=== PATIENT | male | born 1970 | race African-American/Black ===

== ENCOUNTER 2019-10-12 19:07 | Emergency (ER) | payer MEDICARE, OTHER ==
[~2019-10-12] VITALS: Ht 185.4 cm; Wt 137.9 kg
--- NOTE | 2019-10-12 19:26 | NUR ---
SEEN AND EXAMINED BY
--- NOTE | 2019-10-12 19:33 | NUR ---
PATIENT CAME FROM [facility] WITH C/O ABDOMINAL DISTENSION. LAST PARACENTESIS ON 08/22/2019. AAOX3. NOT IN ANY DISTRESS. DENIES ANY PAIN. CONNECTED TO MONITOR.
[2019-10-12 19:52] LABS: BASOPHILS # (AUTO) 0.1 /CMM (0.0-0.2); EOSINOPHILS % (AUTO) 2.9 % (0.0-6.0); HEMATOCRIT 42 % (39-51); HEMOGLOBIN 13.1 g/dL (13.5-17.5); LYMPHOCYTES # (AUTO) 0.9 /CMM (0.8-4.8); LYMPHOCYTES % (AUTO) 15.2 % (20.0-44.0); MEAN CORPUSCULAR HGB CONC 31 g/dl (31.0-36.0); MEAN CORPUSCULAR VOLUME 77 fL (80-96); MONOCYTES # (AUTO) 0.9 /CMM (0.1-1.30); MONOCYTES % (AUTO) 15.9 % (2.0-12.0); NEUTROPHILS # (AUTO) 3.7 /CMM (1.8-8.9); PLATELET COUNT (AUTO) 166 /CMM (150-450); RED BLOOD CELL COUNT(AUTO) 5.49 MIL/uL (4.5-6.0); WHITE BLOOD COUNT (AUTO) 5.7 K/uL (4.3-11.0)
--- NOTE | 2019-10-12 19:56 | NUR ---
VELOCITY SHOOTER AT BEDSIDE FOR BLOOD DRAW
[2019-10-12 20:07] LABS: BILIRUBIN,DIRECT 0.7 mg/dL (0.0-0.2); BILIRUBIN,TOTAL 1.1 mg/dL (0.2-1.0); CALCIUM, SERUM 8.6 mg/dL (8.5-10.1); CREATININE 1.3 mg/dL (0.6-1.3)
[2019-10-12 20:09] LABS: POTASSIUM 5.5 mmol/L (3.5-5.1)
[2019-10-12 20:55] LABS: BAND % (MANUAL) 4 % (0.0-5.0); EOSINOPHILS % (MANUAL) 4 % (0-4); LYMPHOCYTES % (MANUAL) 20 % (16-48); MONOCYTES % (MANUAL) 16 % (0-11.0); NEUTROPHILS % (MANUAL) 56 (42-76)
--- NOTE | 2019-10-12 22:43 | NUR ---
CALLED [facility] FOR FOR BLS TRANSPORT GOING BACK TO [facility]. ETA: 0000 TRIP #:[id number]
--- NOTE | 2019-10-12 23:18 | NUR ---
REPORT GIVEN TO NEGAR JAMIL FOR DILEEP.
--- NOTE | 2019-10-13 00:11 | NUR ---
[facility] AND [facility].
[2019-10-13 00:12] VITALS: BP 122/75
== END 2019-10-13 00:12 | disposition home or self-care (01) ==
LOC: ER 19:13
DX: K70.31 Alcoholic cirrhosis of liver with ascites (principal); K42.9 Umbilical hernia without obstruction or gangrene; D50.9 Iron deficiency anemia, unspecified; I11.0 Hypertensive heart disease with heart failure; I50.9 Heart failure, unspecified; G40.909 Epilepsy, unspecified, not intractable, without status epilepticus; K21.9 Gastro-esophageal reflux disease without esophagitis; F32.9 Major depressive disorder, single episode, unspecified
CPT/HCPCS: 36415; 80048-TC; 80076-TC; 82140-TC; 83690-TC; 85025-TC

== ENCOUNTER 2019-10-15 20:16 | Inpatient (IN) | payer MEDICARE, OTHER ==
[~2019-10-15] VITALS: Ht 188 cm; Wt 137.9 kg
[2019-10-15] MEDS ORDERED: DIVA250T PO (20:43)
[2019-10-15] MEDS ORDERED: DOCU-141 PO (20:43)
[2019-10-15] MEDS ORDERED: PROP10TA10 PO (20:43)
[2019-10-15] MEDS ORDERED: POTA20TA83 PO (20:43)
[2019-10-15] MEDS ORDERED: ESCI10TA PO (20:43)
[2019-10-15] MEDS ORDERED: PANT40TA2 PO (20:43)
[2019-10-15] MEDS ORDERED: ARIP20TA4 PO (20:43)
[2019-10-15] MEDS ORDERED: LACT10SO PO (20:43)
[2019-10-15] MEDS ORDERED: LEVE750T4 PO (20:43)
[2019-10-15] MEDS ORDERED: SPIR50TA PO (20:43)
[2019-10-15] MEDS ORDERED: FURO-145 PO (20:43)
--- NOTE | 2019-10-15 20:43 | NUR ---
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
[2019-10-15 21:27] LABS: BASOPHILS # (AUTO) 0.1 /CMM (0.0-0.2); EOSINOPHILS % (AUTO) 1.7 % (0.0-6.0); HEMATOCRIT 45 % (39-51); HEMOGLOBIN 14.2 g/dL (13.5-17.5); LYMPHOCYTES # (AUTO) 1.1 /CMM (0.8-4.8); LYMPHOCYTES % (AUTO) 17.6 % (20.0-44.0); MEAN CORPUSCULAR HGB CONC 32 g/dl (31.0-36.0); MEAN CORPUSCULAR VOLUME 77 fL (80-96); MONOCYTES # (AUTO) 0.9 /CMM (0.1-1.30); MONOCYTES % (AUTO) 14.6 % (2.0-12.0); NEUTROPHILS # (AUTO) 4.2 /CMM (1.8-8.9); NEUTROPHILS % (AUTO) 65.1 % (43.0-81.0); PLATELET COUNT (AUTO) 231 /CMM (150-450); RED BLOOD CELL COUNT(AUTO) 5.82 MIL/uL (4.5-6.0); WHITE BLOOD COUNT (AUTO) 6.4 K/uL (4.3-11.0)
[2019-10-15] MEDS ORDERED: FUROSEMIDE 20 MG TABLET PO ONE (21:30)
[2019-10-15] MEDS ORDERED: FUROSEMIDE 20 MG TABLET ONE (21:33)
--- NOTE | 2019-10-15 22:01 | NUR ---
[facility] ETA [id number] TRIP#[id number]
[2019-10-15 22:02] LABS: ALANINE AMINOTRANSFERASE 24 U/L (12-78); ALBUMIN 3.1 g/dL (3.4-5.0); ALKALINE PHOSPHATASE 281 U/L (46-116); ASPARTATE AMINOTRANSFERASE 31 U/L (15-37); B-TYPE NATRIURETIC PEPTIDE 1442 PG/ML (0-125); BILIRUBIN,DIRECT 0.9 mg/dL (0.0-0.2); BILIRUBIN,TOTAL 1.4 mg/dL (0.2-1.0); CARBON DIOXIDE 24 mmol/L (21-32); CHLORIDE 101 mmol/L (98-107); CREATININE 1.7 mg/dL (0.6-1.3); GLUCOSE 92 mg/dL (74-106); SODIUM SERUM 135 mmol/L (136-145); TOTAL PROTEIN, SERUM 8.2 g/dL (6.4-8.2); UREA NITROGEN, BLOOD 39 mg/dL (7-18)
[2019-10-15 22:06] LABS: POTASSIUM 6.4 mmol/L (3.5-5.1)
[2019-10-15] MEDS ORDERED: Calcium Gluconate 0.465 MEQ/ML VIAL IV ONE ×2 (22:20→22:30)
[2019-10-15] MEDS ORDERED: ALBUTEROL FS 2.5 MG/0.5 ML VIAL.NEB ONE (22:25)
[2019-10-15] MEDS ORDERED: ALBUTEROL FS 2.5 MG/0.5 ML VIAL.NEB NEB ONE (22:30)
--- NOTE | 2019-10-15 22:56 | NUR ---
REP[ORT CALLED IN TO VÍCTOR RN
[2019-10-15 23:22] VITALS: BP 127/72
[2019-10-15] MEDS ORDERED: ONDANSETRON HCL/PF 4 MG/2 ML VIAL IVP PRN (23:30)
[2019-10-15] MEDS ORDERED: ZOLPIDEM TARTRATE 5 MG TABLET PO PRN (23:30)
[2019-10-15] MEDS ORDERED: HYDROCODONE/APAP 5/325MG 1 EACH TABLET PO PRN (23:30)
[2019-10-15] MEDS ORDERED: ACETAMINOPHEN 325 MG TABLET PO PRN (23:30)
[2019-10-15] MEDS ORDERED: FUROSEMIDE 100 MG/10 ML VIAL IV ONE (23:30)
[2019-10-15] MEDS ORDERED: Z GUARD REMEDY 2 OZ OINT TP PRN (23:30)
[2019-10-15] MEDS ORDERED: LACTULOSE 10 G/15 ML UDC (PYXIS) PO PRN (23:30)
[2019-10-15 23:32] VITALS: BP 127/72
--- NOTE | 2019-10-15 23:32 | NUR ---
KINDERGARTEN ASSISTANT ADMITTING NOTES PATIENT BROUGHT TO UNIT BY ER STAFF [employer]IA [employer]. PATIENT IS AWAKE, A/O X1-2 WITH CONFUSION; BREATHING EVEN AND UNLABORED; PATIENT ON O2 2L NC; NO S/S OF ACUTE RESPIRATORY DISTRESS NOTED; PATIENT DENIES PAIN; NO DISCOMFORT NOTED; VITAL SIGNS STABLE; BP: 127/81, PULSE: 69 BPM; SKIN INTACT; ABDOMINAL DISTENTION NOTED; TELE MONITOR ATTACHED TO PATIENT; MONITOR READS SR; HR 75 BPM; IV SITE INTACT AND PATENT; FLUSHING WELL; NO S/S OF REDNESS OR INFILTRATION; BED LOCKED IN LOW POSITION; BILATERAL UPPER SIDE RAILS; CALL LIGHT WITHIN EASY REACH; WILL CONTINUE TO MONITOR.
--- NOTE | 2019-10-15 23:32 | NUR ---
TRANSFERED PT VIA [facility]
--- NOTE | 2019-10-15 23:45 | NUR ---
MS RN NOTES ADMITTING PICTURES OF SKIN/SCABS TAKEN AND FILED IN PATIENT BINDER
[2019-10-16] MEDS: LEVETIRACETAM (250 MG) 250 MG TABLET PO SCH ×3 (00:47→22:09)
[2019-10-16] MEDS: DIVALPROEX SODIUM 250 MG TABLET.DR PO SCH ×3 (00:48→22:09)
[2019-10-16 03:20] LABS: CALCIUM, SERUM 8.6 mg/dL (8.5-10.1); CREATININE 1.6 mg/dL (0.6-1.3); POTASSIUM 6.1 mmol/L (3.5-5.1)
[2019-10-16 04:00] VITALS: BP 117/72
--- NOTE | 2019-10-16 06:45 | NUR ---
RN NOTES SPOKE TO PT'S SISTER PAOLO GUADARRAMA AND GOT A TELEPHONE CONSENT FOR US GUIDED PARACENTESIS WITNESSED BY THE CHARGE NURSE
--- NOTE | 2019-10-16 06:51 | NUR ---
DEHYDROGENATION CONVERTER OPERATOR CLOSING NOTES PATIENT AWAKE, A/O X1, CONTINUED CONFUSION; BREATHING EVEN AND UNLABORED; NO S/S OF ACUTE RESPIRATORY DISTRESS NOTED; PATIENT AMBULATING AND UNABLE TO SLEEP; PATIENT DENIES PAIN; BLE EDEMA NOTED; BLE MULTIPLE SCABS NOTED; TELE MONITOR READS SR 75 BPM; BED LOCKED IN LOW POSITION, SAFETY PRECAUTIONS IN PLACE. BILATERAL UPPER SIDE RAILS X2; CALL LIGHT WITHIN EASY REACH; WILL ENDORSE CONTINUITY OF CARE TO ONCOMING SHIFT.
--- NOTE | 2019-10-16 07:53 | NUR ---
SECOND CLASS WELDER CLOSING NOTES RECEIVED PATIENT AWAKE, A/O X1, CONTINUED CONFUSION. BREATHING EVEN AND UNLABORED WITH NO S/S OF ACUTE RESPIRATORY DISTRESS NOTED AT THIS TIME. PATIENT DENIES PAIN AT THIS MOMENT. BLE EDEMA NOTED AND MULTIPLE SCABS PRESENT BILATERALLY. PATIENT ON EXTERNAL CARDIAC TELE MONITOR WITH A READING IN THE 70S. LFA GAUGE # 20 PRESENT AND INTACT, FLUSHING WELL. SAFETY PRECAUTIONS IN PLACE: BED IN LOW POSITION AND LOCKED, RAILS UP X 2, CALL LIGHT WITHIN REACH. WILL CONTINUE TO MONITOR PATIENT. Addendum: 10/16/19 at 0811 by SHANT ALBA RN SECOND CLASS WELDER OPENING NOTES RECEIVED PATIENT AWAKE, A/O X1, CONTINUED CONFUSION. BREATHING EVEN AND UNLABORED WITH NO S/S OF ACUTE RESPIRATORY DISTRESS NOTED AT THIS TIME. PATIENT DENIES PAIN AT THIS MOMENT. BLE EDEMA NOTED AND MULTIPLE SCABS PRESENT BILATERALLY. PATIENT ON EXTERNAL CARDIAC TELE MONITOR WITH A READING IN THE 70S. LFA GAUGE # 20 PRESENT AND INTACT, FLUSHING WELL. SAFETY PRECAUTIONS IN PLACE: BED IN LOW POSITION AND LOCKED, RAILS UP X 2, CALL LIGHT WITHIN REACH. WILL CONTINUE TO MONITOR PATIENT.
[2019-10-16 08:00] VITALS: BP 103/72
[2019-10-16 08:55] LABS: BASOPHILS % (AUTO) 0.6 % (0.0-2.0); EOSINOPHILS % (AUTO) 1.8 % (0.0-6.0); HEMATOCRIT 45 % (39-51); HEMOGLOBIN 14.4 g/dL (13.5-17.5); LYMPHOCYTES # (AUTO) 0.9 /CMM (0.8-4.8); LYMPHOCYTES % (AUTO) 13.3 % (20.0-44.0); MEAN CORPUSCULAR HGB CONC 32 g/dl (31.0-36.0); MEAN CORPUSCULAR VOLUME 76 fL (80-96); MONOCYTES # (AUTO) 0.8 /CMM (0.1-1.30); MONOCYTES % (AUTO) 11.8 % (2.0-12.0); NEUTROPHILS # (AUTO) 4.9 /CMM (1.8-8.9); NEUTROPHILS % (AUTO) 72.5 % (43.0-81.0); PLATELET COUNT (AUTO) 237 /CMM (150-450); RED BLOOD CELL COUNT(AUTO) 5.91 MIL/uL (4.5-6.0); WHITE BLOOD COUNT (AUTO) 6.7 K/uL (4.3-11.0)
[2019-10-16] MEDS ORDERED: SPIRONOLACTONE 25 MG TABLET PO SCH (09:00)
[2019-10-16 09:17] LABS: CREATININE 1.5 mg/dL (0.6-1.3); MAGNESIUM 2.2 mg/dL (1.8-2.4); PHOSPHORUS 4.5 mg/dL (2.5-4.9); POTASSIUM 5.8 mmol/L (3.5-5.1)
[2019-10-16] MEDS: FUROSEMIDE 20 MG TABLET PO SCH ×2 (09:27→16:17)
[2019-10-16] MEDS: DOCUSATE SODIUM 100 MG CAPSULE PO SCH ×2 (09:28→16:16)
[2019-10-16] MEDS: ESCITALOPRAM OXALATE (10 MG) 10 MG TABLET PO SCH (09:28)
[2019-10-16] MEDS: ARIPIPRAZOLE 5 MG TABLET PO SCH (09:28)
[2019-10-16] MEDS: PROPRANOLOL HCL 10 MG TABLET PO SCH ×2 (09:29→16:17)
[2019-10-16] MEDS: PANTOPRAZOLE 40 MG TABLET.DR PO SCH (09:30)
[2019-10-16 09:44] LABS: CHOLESTEROL 70 mg/dL (<200); TRIGLYCERIDES 43 mg/dL (30-150)
[2019-10-16 09:45] LABS: HDL CHOLESTEROL 30 mg/dL (40-60); LDL 38 mg/dL (0-99)
[2019-10-16] MEDS ORDERED: SODIUM POLYSTYRENE SULFONATE 15 G/60 ML BOTTLE PO ONE (11:00)
--- NOTE | 2019-10-16 14:31 | NUR ---
MS RN NOTES PATIENT JUST HAS A US GUIDED PARACENTESIS PERFORMED AT BEDSIDE. PATIENT TOLERATED PROCEDURE WELL. 4500 MLS OF FLUID DRAINED. WILL CONTINUE TO MONITOR PATIENT.
[2019-10-16 16:00] VITALS: BP 111/79
--- NOTE | 2019-10-16 18:44 | NUR ---
MS RN CLOSING NOTES PATIENT AT THIS MOMENT IN BED SITTING QUIETLY. A/O X1, REPLIES YES OR NO AND AT TIMES DOES NOT ANSWER APPROPRIATELY TO THE QUESTION. DURING THE DAY LIKES TO AMBULATE THROUGHOUT THE OGLESBY. PATIENT ON ROOM AIR BREATHING EVENLY WITH SO S/S OF DISTRESS. LFA GAUGE # 20 PRESENT, INTACT AND PATENT. PATIENT HAD US GUIDED PARACENTESIS TODAY WITH AN OUTPUT OF 4500 MLS. PROCEDURE TOLERATED WELL AND THE SITE IS CLEAN, DRY AND INTACT. SAFETY PRECAUTIONS IN PLACE: BED IN LOW POSITION AND LOCKED, RAILS UP X 2, CALL LIGHT WITHIN REACH. WILL ENDORSE TO THE TAPPER SHANK NURSE.
--- NOTE | 2019-10-16 19:15 | NUR ---
MS RN OPENING NOTES BEDSIDE REPORT RECIEVED FROM SHANT Keller RN. PATIENT AT THIS MOMENT IN BED SITTING QUIETLY. A/O X1, PATIENT APHASIC, ABLE TO ANSWER YES OR NO QUESTIONS. PER REPORT PATIENT WANDERS THROUGH THROUGH OGLESBY BUT HAS NOT TRIED TO LEAVE THE UNIT. PATIENT ON ROOM AIR BREATHING EVEN AND UNLABORED. PATIENT HAS LFA GAUGE # 20 INTACT AND PATENT. PATIENT HAD US GUIDED PARACENTESIS TODAY WITH AN OUTPUT OF 4500 ML. SAFETY PRECAUTIONS IN PLACE: BED IN LOW POSITION AND LOCKED, RAILS UP X 2, CALL LIGHT WITHIN REACH. WILL CONTINUE TO MONITOR.
[2019-10-16 20:00] VITALS: BP 103/66
--- NOTE | 2019-10-17 06:30 | NUR ---
MS RN CLOSING NOTES PATIENT IN BED WITH EYES CLOSED. PATIENT ON ROOM AIR BREATHING EVENLY WITH NO S/S OF DISTRESS. LFA GAUGE # 20 PRESENT, INTACT. SAFETY PRECAUTIONS IN PLACE: BED IN LOW POSITION AND LOCKED, RAILS UP X 2, CALL LIGHT WITHIN REACH. BED ALARM ACTIVE.
--- NOTE | 2019-10-17 07:51 | NUR ---
MS/RN Patient received. Patient received from slot shift supervisor. Patient non verbal, able to follow simple commands and nod and shake head to simple questions. Denies any pain or discomfort. Safety measures in place, call light within reach. Will continue to monitor and ensure safety.
[2019-10-17 07:57] LABS: BASOPHILS % (AUTO) 0.5 % (0.0-2.0); EOSINOPHILS % (AUTO) 1.9 % (0.0-6.0); HEMATOCRIT 41 % (39-51); LYMPHOCYTES # (AUTO) 0.8 /CMM (0.8-4.8); MEAN CORPUSCULAR HGB CONC 32 g/dl (31.0-36.0); MEAN CORPUSCULAR VOLUME 76 fL (80-96); MONOCYTES # (AUTO) 0.8 /CMM (0.1-1.30); NEUTROPHILS # (AUTO) 3.7 /CMM (1.8-8.9); NEUTROPHILS % (AUTO) 67.6 % (43.0-81.0); PLATELET COUNT (AUTO) 206 /CMM (150-450); RED BLOOD CELL COUNT(AUTO) 5.41 MIL/uL (4.5-6.0); WHITE BLOOD COUNT (AUTO) 5.4 K/uL (4.3-11.0)
[2019-10-17 08:00] VITALS: BP 100/60
[2019-10-17 08:24] LABS: ALBUMIN 2.6 g/dL (3.4-5.0); BILIRUBIN,TOTAL 1.4 mg/dL (0.2-1.0); CALCIUM, SERUM 8.5 mg/dL (8.5-10.1); CREATININE 1.2 mg/dL (0.6-1.3); MAGNESIUM 1.9 mg/dL (1.8-2.4); PHOSPHORUS 4.2 mg/dL (2.5-4.9)
[2019-10-17] MEDS: DIVALPROEX SODIUM 250 MG TABLET.DR PO SCH ×2 (08:35→21:01)
[2019-10-17] MEDS: PROPRANOLOL HCL 10 MG TABLET PO SCH ×2 (08:35→17:26)
[2019-10-17] MEDS: ESCITALOPRAM OXALATE (10 MG) 10 MG TABLET PO SCH (08:36)
[2019-10-17] MEDS: PANTOPRAZOLE 40 MG TABLET.DR PO SCH (08:36)
[2019-10-17] MEDS: DOCUSATE SODIUM 100 MG CAPSULE PO SCH ×2 (08:36→17:25)
[2019-10-17] MEDS: LEVETIRACETAM (250 MG) 250 MG TABLET PO SCH ×2 (08:36→21:01)
[2019-10-17] MEDS: FUROSEMIDE 20 MG TABLET PO SCH ×2 (08:36→17:25)
[2019-10-17] MEDS: ARIPIPRAZOLE 5 MG TABLET PO SCH (08:37)
--- NOTE | 2019-10-17 09:05 | NUR ---
MS/RN S/B Dr Hopper Seen by MD - labs ordered for tomorrow.
--- NOTE | 2019-10-17 11:00 | NUR ---
MS/RN S/B Dr Mayes Seen by Dr Mayes - no indication for acute HDX at this time, all medications to be renally dosed. Follow up with urine studies results.
[2019-10-17 16:00] VITALS: BP 115/68
--- NOTE | 2019-10-17 16:00 | NUR ---
MS/battery stacker update Family updated via phone as to plan of care. Per sister, patient has been taking coumadin for past several years. Will inform MD.
--- NOTE | 2019-10-17 18:10 | NUR ---
MS/RN End note Patient remains in stable condition, no new needs or concerns at this time. Able to ambulate safely in hallways with steady gait. Denies any pain or discomfort. Abdomen remains distended and firm to touch. All needs addressed, will continue to monitor and endorse to retail shift leader.
--- NOTE | 2019-10-17 19:30 | NUR ---
ms kit initial notes. seen pt in bed while getting report form am nurse Vickie. pt resting at this time. respiration even and non-labored, not in any acute distress noted. kept him warm and comfortable at all times. bed in low and lock in position with side rails up . place call light at reach. will continue monitoring.
[2019-10-17 20:00] VITALS: BP 133/74
[2019-10-17 22:50] VITALS: BP 133/74
--- NOTE | 2019-10-18 07:30 | NUR ---
RN MS NOTES PT IN BED, ASLEEP, EASY TO AROUSE, ALERT AND VERBALLY RESPONSIVE, NOT IN DISTRESS, CALL LIGHT WITHIN REACH, NEEDS ATTENDED.
[2019-10-18 07:42] LABS: BASOPHILS % (AUTO) 0.6 % (0.0-2.0); EOSINOPHILS % (AUTO) 2.4 % (0.0-6.0); HEMATOCRIT 42 % (39-51); HEMOGLOBIN 13.1 g/dL (13.5-17.5); LYMPHOCYTES # (AUTO) 0.7 /CMM (0.8-4.8); LYMPHOCYTES % (AUTO) 14.8 % (20.0-44.0); MEAN CORPUSCULAR HGB CONC 32 g/dl (31.0-36.0); MEAN CORPUSCULAR VOLUME 76 fL (80-96); MONOCYTES # (AUTO) 0.9 /CMM (0.1-1.30); MONOCYTES % (AUTO) 18.2 % (2.0-12.0); NEUTROPHILS # (AUTO) 3.2 /CMM (1.8-8.9); PLATELET COUNT (AUTO) 222 /CMM (150-450); RED BLOOD CELL COUNT(AUTO) 5.45 MIL/uL (4.5-6.0); WHITE BLOOD COUNT (AUTO) 5.1 K/uL (4.3-11.0)
--- NOTE | 2019-10-18 07:48 | NUR ---
registration representative closing notes pt back to rest after morning care done. Stable carine the night and slept well. all due meds given and all needs met. NO signs of any distress noted at this time. kept him warm and comfortable at all times. place call light at reach. will endorse to am nurse for continuity of care.
[2019-10-18 08:00] VITALS: BP 108/78
[2019-10-18 08:04] LABS: CALCIUM, SERUM 8.2 mg/dL (8.5-10.1); CREATININE 1.2 mg/dL (0.6-1.3); POTASSIUM 5.1 mmol/L (3.5-5.1)
[2019-10-18] MEDS: LEVETIRACETAM (250 MG) 250 MG TABLET PO SCH (09:23)
[2019-10-18 09:24] VITALS: BP 108/78
[2019-10-18] MEDS: ARIPIPRAZOLE 5 MG TABLET PO SCH (09:24)
[2019-10-18] MEDS: DOCUSATE SODIUM 100 MG CAPSULE PO SCH (09:24)
[2019-10-18] MEDS: DIVALPROEX SODIUM 250 MG TABLET.DR PO SCH (09:24)
[2019-10-18] MEDS: PANTOPRAZOLE 40 MG TABLET.DR PO SCH (09:24)
[2019-10-18] MEDS: FUROSEMIDE 20 MG TABLET PO SCH (09:24)
[2019-10-18] MEDS: PROPRANOLOL HCL 10 MG TABLET PO SCH (09:24)
[2019-10-18] MEDS: ESCITALOPRAM OXALATE (10 MG) 10 MG TABLET PO SCH (09:24)
--- NOTE | 2019-10-18 14:23 | NUR ---
RN MS NOTES PT IN BED, AWAKE, ALERT AND ORIENTED, NO COMPLAINT OF PAIN, NO SOB, AMBULATES WITH STEADY GAIT, SEEN BY DR. MATT, DISCHARGE ORDER GIVEN, PT INFORMED, DISCHARGE AND MEDICATION INSTRUCTIONS PROVIDED TO PT, VERBALIZED UNDERSTANDING, REPORT GIVEN TO BHARGAV JAMIL OF [facility], SKIN CHECK DONE, BELONGINGS ACCOUNTED FOR, PICKED UP BY 2 AMBULANCE PERSONNEL, LEFT VIA GUERNEY IN STABLE CONDITION.
== END 2019-10-18 14:30 | DRG 432 ==
LOC: ER 20:20 → TELE 22:47 → MED 10-16 11:16
PROVIDERS: ADMIT Nurse Practitioner Acute Care; ATTEND Family Medicine
PROC: 0W9G3ZZ Drainage of Peritoneal Cavity, Percutaneous Approach (ICD-10-PCS; principal; 2019-10-16)
DX: K74.60 Unspecified cirrhosis of liver (principal); J96.01 Acute respiratory failure with hypoxia; N17.0 Acute kidney failure with tubular necrosis; D68.69 Other thrombophilia; E44.1 Mild protein-calorie malnutrition; R18.8 Other ascites; E87.1 Hypo-osmolality and hyponatremia; J90 Pleural effusion, not elsewhere classified; E87.5 Hyperkalemia; I11.0 Hypertensive heart disease with heart failure; I50.9 Heart failure, unspecified; E66.01 Morbid (severe) obesity due to excess calories; E88.09 Other disorders of plasma-protein metabolism, not elsewhere classified; G40.909 Epilepsy, unspecified, not intractable, without status epilepticus; I27.20 Pulmonary hypertension, unspecified; Z86.73 Personal history of transient ischemic attack (TIA), and cerebral infarction without residual deficits; Z68.39 Body mass index [BMI] 39.0-39.9, adult; F20.9 Schizophrenia, unspecified
CPT/HCPCS: 36415; 71045-TC; 76942-TC; 80048-TC; 80053-TC; 80061-TC; 80076-TC; 82140-TC; 83690-TC; 83735-TC; 83880; 84100-TC; 84484-TC; 85025-TC; 85610-TC; 87081-TC; 88112-TC; 88305-TC; 88312-TC; 89051-TC; 93307-TC; G0378; J0610; J1940

== ENCOUNTER 2020-03-14 22:01 | Inpatient (IN) | payer MEDICARE, OTHER ==
[~2020-03-14] VITALS: Ht 177.8 cm; Wt 78.5 kg
[~2020-03-14 22:01] MED LIST: ARIP20TA4 PO; DIVA250T PO; DOCU-141 PO; ESCI10TA PO; LACT10SO PO; LEVE750T4 PO; PANT40TA2 PO; PROP10TA10 PO
--- NOTE | 2020-03-14 22:01 | NUR ---
ABI FROM [facility] C/O ABNORMAL EKG AND LABS (K: 6.3, BUN 54), pt awake, alert, -sob, nad noted, vss, pending md dickson
[2020-03-14 22:34] LABS: APPEARANCE,URINE Clear (CLEAR); BILIRUBIN,URINE Negative (NEGATIVE); BLOOD, URINE Negative Ery/uL (NEGATIVE); COLOR,URINE Yellow (YELLOW); KETONES,URINE Negative (NEGATIVE); LEUKOCYTE ESTERASE ,URINE Negative (NEGATIVE); NITRITE, URINE Negative (NEGATIVE); PH,URINE 5.5 (5.0-8.0); PROTEIN,URINE Negative (NEGATIVE); UGLUCOSE Negative (NEGATIVE); UROBILINOGEN,URINE 0.2 EU/dL (0.2)
[2020-03-14 22:42] LABS: BASOPHILS % (AUTO) 0.5 % (0.0-2.0); EOSINOPHILS % (AUTO) 2.1 % (0.0-6.0); HEMATOCRIT 46 % (39-51); HEMOGLOBIN 14.9 g/dL (13.5-17.5); LYMPHOCYTES % (AUTO) 14.1 % (20.0-44.0); MEAN CORPUSCULAR HGB CONC 33 g/dl (31.0-36.0); MEAN CORPUSCULAR VOLUME 76 fL (80-96); MONOCYTES # (AUTO) 0.7 /CMM (0.1-1.30); MONOCYTES % (AUTO) 10.1 % (2.0-12.0); NEUTROPHILS # (AUTO) 5.1 /CMM (1.8-8.9); NEUTROPHILS % (AUTO) 73.2 % (43.0-81.0); PLATELET COUNT (AUTO) 219 /CMM (150-450); RED BLOOD CELL COUNT(AUTO) 5.98 MIL/uL (4.5-6.0)
[2020-03-14 22:59] LABS: ALBUMIN 3.4 g/dL (3.4-5.0); BILIRUBIN,DIRECT 0.7 mg/dL (0.0-0.2); BILIRUBIN,TOTAL 1.1 mg/dL (0.2-1.0); CALCIUM, SERUM 9.2 mg/dL (8.5-10.1); CREATININE 1.4 mg/dL (0.6-1.3); POTASSIUM 5.7 mmol/L (3.5-5.1); TOTAL PROTEIN, SERUM 9.7 g/dL (6.4-8.2)
[2020-03-14] MEDS ORDERED: AZITHROMYCIN 500 MG in IV D5W 250 ML IV ONE (23:00)
[2020-03-14] MEDS ORDERED: CEFTRIAXONE 1GM BAG (ER ONLY) 1 GM/50 ML PIGGYBACK IV ONE (23:00)
[2020-03-14] MEDS ORDERED: AZITHROMYCIN 500 MG VIAL ONE (23:25)
[2020-03-14] MEDS ORDERED: CALCIUM CHLORIDE 1,000 MG/10 ML DISP.SYRIN ONE (23:25)
[2020-03-14] MEDS ORDERED: CALCIUM CHLORIDE 1,000 MG/10 ML DISP.SYRIN IV ONE (23:30)
--- NOTE | 2020-03-14 23:39 | NUR ---
BED ASSIGNMENT 108
[2020-03-15] MEDS ORDERED: CEFTRIAXONE 1GM BAG (ER ONLY) 50 ML IV ONE (00:04)
--- NOTE | 2020-03-15 00:59 | NUR ---
report given to dionne de los santos for arlen pt will be transported to 1st floor
[2020-03-15 01:00] LABS: C-REACTIVE PROTEIN 2.4 mg/dL (0.0-0.9); FERRITIN 243 ng/mL (8-388)
--- NOTE | 2020-03-15 01:08 | NUR ---
pt transported to 1st floor
--- NOTE | 2020-03-15 01:15 | NUR ---
telephone lineman notes Admitted a 49 y/o male a/o x 3 verbally responsive , came from [facility] , with admitting dx of hyperkalemia and r/o covid 19 body check done with skin intact , pts is ambulatory unclear speech but able to understand , all needs attended too call light within reach pt on r/a sating 96% no sob no distress noted , v/s stable afebrile . kept pts clean dry and comfortable , pts is r/o covid 19 ,precautionary measures observed at all times. with iv site on left c g 20 intact and patent .
[2020-03-15 01:44] VITALS: BP 103/73
[2020-03-15] MEDS: DIVALPROEX SODIUM 250 MG TABLET.DR PO SCH ×4 (02:49→18:16)
[2020-03-15] MEDS: FUROSEMIDE 40 MG/4 ML VIAL IV SCH ×2 (02:49→09:41)
[2020-03-15] MEDS: LACTULOSE 10 G/15 ML UDC (PYXIS) PO SCH ×4 (02:50→18:16)
[2020-03-15 04:00] VITALS: BP 94/61
--- NOTE | 2020-03-15 06:50 | NUR ---
telecommunications analyst notes Pts remains in bed asleep and comfortable no sob no distress noted ,will endorse to rn day shift for continuity of care.
[2020-03-15 08:00] VITALS: BP 106/63
[2020-03-15] MEDS ORDERED: MULT-24 PO (08:21)
[2020-03-15] MEDS ORDERED: LATA2.5D2 EACHEYE (08:21)
[2020-03-15] MEDS ORDERED: BISA10SU11 RC (08:21)
[2020-03-15] MEDS ORDERED: FURO-145 PO (08:21)
[2020-03-15] MEDS ORDERED: MAGN400O6 PO (08:21)
[2020-03-15] MEDS ORDERED: SPIR50TA PO (08:21)
[2020-03-15] MEDS ORDERED: RIFA550T PO (08:21)
[2020-03-15] MEDS ORDERED: ACET-868 PO (08:21)
[2020-03-15] MEDS ORDERED: NA P133E RC (08:21)
[2020-03-15] MEDS ORDERED: LEVO50TA8 PO (08:21)
[2020-03-15] MEDS ORDERED: PROPRANOLOL HCL 10 MG TABLET PO SCH (09:00)
[2020-03-15] MEDS: ARIPIPRAZOLE 5 MG TABLET PO SCH (09:41)
[2020-03-15] MEDS: PANTOPRAZOLE 40 MG TABLET.DR PO SCH (09:41)
[2020-03-15] MEDS: ESCITALOPRAM OXALATE (10 MG) 10 MG TABLET PO SCH (09:42)
[2020-03-15] MEDS: LEVETIRACETAM (250 MG) 250 MG TABLET PO SCH ×2 (09:42→21:46)
[2020-03-15] MEDS: DOCUSATE SODIUM 100 MG CAPSULE PO SCH ×2 (09:42→18:16)
--- NOTE | 2020-03-15 10:48 | NUR ---
received pt from plant operator/shift supervisor, alert, follows commands, SR, RA sat well, tolerates diet, urinates in urinal, v/s stable, no pain, pt turns and repositions by himself.
[2020-03-15 12:00] VITALS: BP 94/60
[2020-03-15] MEDS: HEPARIN SODIUM, PORCINE 5000 UNITS/1 ML VIAL SQ SCH ×2 (14:38→21:48)
[2020-03-15 16:00] VITALS: BP 114/67
[2020-03-15 20:00] VITALS: BP_SYST 104; BP_SYST 139; BP_DIAS 67; BP_DIAS 77
[2020-03-16] VITALS (7 sets, daily range): BP systolic 97–113; BP diastolic 59–81
--- NOTE | 2020-03-16 04:46 | NUR ---
RN notes Patient in bed comfortably resting with no distress noted. On room air tolerating well, breathing even and unlabored. Alma Rosa diaz confusion, garbled speech, cooperative. No complaint of pain or discomfort. Vital signs wnl. No significant change of condition. Kept clean and dry. Will endorse to next shift for continuity of care.
--- NOTE | 2020-03-16 08:26 | NUR ---
RN TELE1 PATIENT IN BED AWAKE, A/X 0, NURSE UNABLE TO COMPREHEND WORDS. PATIENT DOES FOLLOW COMMANDS. PATIENT SKIN INTACT. PATIENT HAS LAC # 20 PATENT AND INTACT. NO SIGNS OF INFILTRATION. OR INFECTION. BED LOCKED AND LOWEST POSITION CALL LIGHT WITH IN REACH ALL SAFETY MEASURE IMPLEMENTED PER HOSPITAL POLICY
[2020-03-16] MEDS: LEVETIRACETAM (250 MG) 250 MG TABLET PO SCH ×2 (10:19→21:06)
[2020-03-16] MEDS: FUROSEMIDE 40 MG/4 ML VIAL IV SCH (10:19)
[2020-03-16] MEDS: DIVALPROEX SODIUM 250 MG TABLET.DR PO SCH ×3 (10:19→17:12)
[2020-03-16] MEDS: LACTULOSE 10 G/15 ML UDC (PYXIS) PO SCH ×3 (10:19→17:12)
[2020-03-16] MEDS: ARIPIPRAZOLE 5 MG TABLET PO SCH (10:19)
[2020-03-16] MEDS: ESCITALOPRAM OXALATE (10 MG) 10 MG TABLET PO SCH ×2 (10:20→10:33)
[2020-03-16] MEDS: HEPARIN SODIUM, PORCINE 5000 UNITS/1 ML VIAL SQ SCH ×2 (10:20→21:09)
[2020-03-16] MEDS: PANTOPRAZOLE 40 MG TABLET.DR PO SCH (10:33)
[2020-03-16] MEDS: DOCUSATE SODIUM 100 MG CAPSULE PO SCH ×2 (10:45→17:12)
--- NOTE | 2020-03-16 13:00 | NUR ---
RN MS1 - TRANSFER TO MS2 REPORT GIVEN TO MS2 NURSE
--- NOTE | 2020-03-16 13:25 | NUR ---
MS RN NOTE RECEIVED PATIENT FROM SEBASTIÁN NURSEPAUL. BED SIDE REPORT RECEIVED. ORIENTED PATIENT TO ROOM, ROOMMATE, UNIT AND CALL LIGHT. DENIES ANY C/O PAIN NOR DISCOMFORT AT THIS TIME. AMBULATORY WITH STEADY GAIT. BED IN LOWEST POSITION ,LOCKED. BED ALARM ON. CALL LIGHT WITHIN REACH.
--- NOTE | 2020-03-16 19:38 | NUR ---
MS RN NOTE PATIENT RESTING COMFORTABLY IN BED. ALERT AND ORIENTEDX1. PATIENT WITH GARBLED SPEECH BUT ABLE TO MAKE NEEDS KNOWN AND FOLLOWS COMMANDS. AMBULATORY WITH STEADY GAIT. LEFT AC SL # 20 INTACT AND PATENT. NO SOB. DENIES ANY C/O PAIN NOR DISCOMFORT AT THIS TIME. CALL [facility] WITHIN REACH. IN NO APPARENT DISTRESS.
--- NOTE | 2020-03-16 20:00 | NUR ---
rn notes: pt noted to be a/ox 1-2, garbled speech, able to follow commands. calm and cooperative. able to make his needs known, ambulatory, continent. no facial grimace noted at this time. sitter at bed side. safety precautions for fall initiated, call light in reach, will continue monitoring pt.
--- NOTE | 2020-03-16 20:40 | NUR ---
rn notes: per filiberto hills, labs not drawn today as pt hard stick, multiple trial doesnt but unsuccessful, per last conversation from lab, they will send someone tonight to try drawing blood again
--- NOTE | 2020-03-16 23:00 | NUR ---
rnnotes: rehab services aide came to draw blood
[2020-03-16 23:31] LABS: BASOPHILS # (AUTO) 0.2 /CMM (0.0-0.2); BASOPHILS % (AUTO) 2.3 % (0.0-2.0); EOSINOPHILS % (AUTO) 3.2 % (0.0-6.0); HEMATOCRIT 54 % (39-51); HEMOGLOBIN 17.2 g/dL (13.5-17.5); LYMPHOCYTES % (AUTO) 12.5 % (20.0-44.0); MEAN CORPUSCULAR HGB CONC 32 g/dl (31.0-36.0); MEAN CORPUSCULAR VOLUME 77 fL (80-96); MONOCYTES # (AUTO) 0.9 /CMM (0.1-1.30); MONOCYTES % (AUTO) 11.5 % (2.0-12.0); NEUTROPHILS # (AUTO) 5.5 /CMM (1.8-8.9); NEUTROPHILS % (AUTO) 70.5 % (43.0-81.0); PLATELET COUNT (AUTO) 176 /CMM (150-450); RED BLOOD CELL COUNT(AUTO) 7.04 MIL/uL (4.5-6.0); WHITE BLOOD COUNT (AUTO) 7.8 K/uL (4.3-11.0)
[2020-03-17 00:46] LABS: ALANINE AMINOTRANSFERASE 139 U/L (12-78); ALBUMIN 3.3 g/dL (3.4-5.0); ALKALINE PHOSPHATASE 805 U/L (46-116); ASPARTATE AMINOTRANSFERASE 84 U/L (15-37); BILIRUBIN,TOTAL 1.2 mg/dL (0.2-1.0); CALCIUM, SERUM 9.3 mg/dL (8.5-10.1); CARBON DIOXIDE 22 mmol/L (21-32); CHLORIDE 95 mmol/L (98-107); CREATININE 1.1 mg/dL (0.6-1.3); GLUCOSE 65 mg/dL (74-106); MAGNESIUM 1.9 mg/dL (1.8-2.4); PHOSPHORUS 4.3 mg/dL (2.5-4.9); POTASSIUM 5.2 mmol/L (3.5-5.1); SODIUM SERUM 130 mmol/L (136-145); TOTAL PROTEIN, SERUM 10.3 g/dL (6.4-8.2); UREA NITROGEN, BLOOD 44 mg/dL (7-18)
--- NOTE | 2020-03-17 01:00 | NUR ---
rn notes: provided with a total of 6 boxes of cranberry juice, 1graham crackers 2 jell o per pt's request. all consumed 1005. no n/v noted post eating.
--- NOTE | 2020-03-17 03:00 | NUR ---
rnnotes: made aware of new lab results, made aware pt on colace, lasix and lactulose 25gm tid daily. no new orders receive at this time.
[2020-03-17 06:36] VITALS: BP 103/79
[2020-03-17 06:37] LABS: BASOPHILS % (AUTO) 0.6 % (0.0-2.0); EOSINOPHILS % (AUTO) 3.5 % (0.0-6.0); HEMATOCRIT 48 % (39-51); HEMOGLOBIN 15.3 g/dL (13.5-17.5); LYMPHOCYTES % (AUTO) 18.5 % (20.0-44.0); MEAN CORPUSCULAR HGB CONC 32 g/dl (31.0-36.0); MEAN CORPUSCULAR VOLUME 77 fL (80-96); MONOCYTES # (AUTO) 0.6 /CMM (0.1-1.30); MONOCYTES % (AUTO) 11.2 % (2.0-12.0); NEUTROPHILS # (AUTO) 3.7 /CMM (1.8-8.9); NEUTROPHILS % (AUTO) 66.2 % (43.0-81.0); PLATELET COUNT (AUTO) 196 /CMM (150-450); RED BLOOD CELL COUNT(AUTO) 6.22 MIL/uL (4.5-6.0); WHITE BLOOD COUNT (AUTO) 5.6 K/uL (4.3-11.0)
[2020-03-17 06:46] LABS: ALBUMIN 2.8 g/dL (3.4-5.0); BILIRUBIN,TOTAL 1.1 mg/dL (0.2-1.0); CALCIUM, SERUM 8.7 mg/dL (8.5-10.1); MAGNESIUM 1.7 mg/dL (1.8-2.4); PHOSPHORUS 3.2 mg/dL (2.5-4.9); POTASSIUM 4.3 mmol/L (3.5-5.1); TOTAL PROTEIN, SERUM 8.8 g/dL (6.4-8.2)
--- NOTE | 2020-03-17 06:58 | NUR ---
end of shift report: pt remains a/o x1-2, with garbled speech. pt remains calm, cooperative with care, iv access patent and flushing well, on hl, no s/s of iv infiltration noted. per hospitalist, possible c in am. vs remains stable, needs attended. safety precautions for fall remains engaged, call light in reach, will endorse to day rn for continuity of care.
[2020-03-17 08:00] VITALS: BP 147/70
--- NOTE | 2020-03-17 08:00 | NUR ---
RN NOTES PATIENT SEEN IN THE BED A/O X1, CONFUSED, BUT REDIRECTABLE, NO ACUTE RESPIRATORY DISTRESS, V/S STABLE. PATIENT MED COMPLIANT, DRESS,AND UNDRESS SELF. TOLERATED BREAKFAST WELL. AMBULATORY, USING BATHROOM. CONTINUED MONITORING.
[2020-03-17 08:28] VITALS: BP 147/70
[2020-03-17] MEDS: ARIPIPRAZOLE 5 MG TABLET PO SCH (08:30)
[2020-03-17] MEDS: LEVETIRACETAM (250 MG) 250 MG TABLET PO SCH ×2 (08:31→21:10)
[2020-03-17] MEDS: DIVALPROEX SODIUM 250 MG TABLET.DR PO SCH ×3 (08:32→17:13)
[2020-03-17] MEDS: PANTOPRAZOLE 40 MG TABLET.DR PO SCH (08:32)
[2020-03-17] MEDS: DOCUSATE SODIUM 100 MG CAPSULE PO SCH ×2 (08:32→17:13)
[2020-03-17] MEDS: LACTULOSE 10 G/15 ML UDC (PYXIS) PO SCH ×3 (08:33→17:13)
[2020-03-17] MEDS: FUROSEMIDE 40 MG/4 ML VIAL IV SCH (08:33)
[2020-03-17] MEDS: HEPARIN SODIUM, PORCINE 5000 UNITS/1 ML VIAL SQ SCH ×2 (08:36→21:11)
[2020-03-17] MEDS: SPIRONOLACTONE 25 MG TABLET PO SCH (11:29)
[2020-03-17] MEDS ORDERED: FUROSEMIDE 40 MG TABLET PO ONE (12:30)
--- NOTE | 2020-03-17 12:36 | NUR ---
rn noted seen patient via hospitalist patient will discharge back to the SNF.
[2020-03-17] MEDS ORDERED: MAGNESIUM OXIDE 400 MG TABLET PO ONE (12:53)
[2020-03-17] MEDS ORDERED: Magnesium 1GM/D5W 100ML PREMIX 100 ML IV SCH (13:30)
[2020-03-17 16:00] VITALS: BP 110/94
[2020-03-17 16:57] VITALS: BP 93/110
--- NOTE | 2020-03-17 18:00 | NUR ---
RN NOTES PATIENT TOLERATED DINNER WELL, REFUSED PAIN, NO ACUTE DISTRESS, AMBULATORY. CALL LIGHT WITHIN TO REACH. ENDORSED ONCOMING NURSE FOLLOW PLAN OF CARE.
--- NOTE | 2020-03-17 19:36 | NUR ---
MS RN OPENING NOTES PATIENT RECEIVED SLEEPING. STABLE ON RA WITH BREATHING EVEN AND UNLABORED, NO SOB NOTED. NO SIGNS OF ACUTE DISTRESS. NO COMPLAINTS OF PAIN OR DISCOMFORT- NO FACIAL GRIMACING. NO ACCESS- DISCHARGE TOMORROW MD AWARE. SAFETY PRECAUTIONS IN PLACE WITH BED IN LOWEST POSITION, CALL LIGHT WITHIN REACH, BREAKS ON, SIDE RAILS UP. WILL CONTINUE TO MONITOR THROUGHOUT THE SHIFT.
[2020-03-17 20:00] VITALS: BP 110/75
--- NOTE | 2020-03-18 07:30 | NUR ---
MS RN OPENING NOTE: Received patient sitting on the side of his bed. Patient denies pain. Breathing unlabored and even. No SOB. No signs of distress. Patient has no access. Safety precaution is in place; bed is in lowest position, both upper side rails are up, bed brake is on, and call light is within reach. Will continue to monitor and continue plan of care.
--- NOTE | 2020-03-18 07:31 | NUR ---
MS RN CLOSING NOTES PATIENT SLEEPING, A/O X2. STABLE ON RA WITH BREATHING EVEN AND UNLABORED, NO SOB NOTED. NO SIGNS OF ACUTE DISTRESS. NO COMPLAINTS OF PAIN OR DISCOMFORT- NO FACIAL GRIMACING. NO ACCESS- DISCHARGE TODAY MD AWARE. SAFETY PRECAUTIONS IN PLACE WITH BED IN LOWEST POSITION, CALL LIGHT WITHIN REACH, BREAKS ON, SIDE RAILS UP. ALL NEEDS ATTENDED TO. WILL ENDORSE TO ONCOMING SHIFT ABOUT DILEEP.
[2020-03-18 08:00] VITALS: BP 107/68
[2020-03-18] MEDS: PANTOPRAZOLE 40 MG TABLET.DR PO SCH (08:01)
[2020-03-18] MEDS: ARIPIPRAZOLE 5 MG TABLET PO SCH (08:19)
[2020-03-18] MEDS: ESCITALOPRAM OXALATE (10 MG) 10 MG TABLET PO SCH (08:19)
[2020-03-18] MEDS: DIVALPROEX SODIUM 250 MG TABLET.DR PO SCH ×3 (08:19→16:16)
[2020-03-18] MEDS: HEPARIN SODIUM, PORCINE 5000 UNITS/1 ML VIAL SQ SCH ×2 (08:22→20:38)
[2020-03-18] MEDS: SPIRONOLACTONE 25 MG TABLET PO SCH (08:24)
[2020-03-18] MEDS: LEVETIRACETAM (250 MG) 250 MG TABLET PO SCH ×2 (08:43→20:38)
[2020-03-18] MEDS: DOCUSATE SODIUM 100 MG CAPSULE PO SCH ×2 (08:44→16:16)
--- NOTE | 2020-03-18 08:45 | NUR ---
RN MS NOTE: Docusate Sodium 100mg barcode will not scan. Entered code manually.
[2020-03-18] MEDS: LACTULOSE 10 G/15 ML UDC (PYXIS) PO SCH ×3 (09:50→16:16)
[2020-03-18 11:18] LABS: ALBUMIN 3.2 g/dL (3.4-5.0); BASOPHILS % (AUTO) 0.4 % (0.0-2.0); BILIRUBIN,TOTAL 1.5 mg/dL (0.2-1.0); CALCIUM, SERUM 8.9 mg/dL (8.5-10.1); CREATININE 0.9 mg/dL (0.6-1.3); EOSINOPHILS % (AUTO) 2.9 % (0.0-6.0); HEMATOCRIT 52 % (39-51); HEMOGLOBIN 16.5 g/dL (13.5-17.5); LYMPHOCYTES # (AUTO) 1.2 /CMM (0.8-4.8); LYMPHOCYTES % (AUTO) 17.3 % (20.0-44.0); MAGNESIUM 2.1 mg/dL (1.8-2.4); MEAN CORPUSCULAR HGB CONC 32 g/dl (31.0-36.0); MEAN CORPUSCULAR VOLUME 78 fL (80-96); MONOCYTES # (AUTO) 0.6 /CMM (0.1-1.30); MONOCYTES % (AUTO) 8.5 % (2.0-12.0); NEUTROPHILS # (AUTO) 4.8 /CMM (1.8-8.9); NEUTROPHILS % (AUTO) 70.9 % (43.0-81.0); PHOSPHORUS 2.8 mg/dL (2.5-4.9); PLATELET COUNT (AUTO) 234 /CMM (150-450); POTASSIUM 5.3 mmol/L (3.5-5.1); RED BLOOD CELL COUNT(AUTO) 6.74 MIL/uL (4.5-6.0); TOTAL PROTEIN, SERUM 10.2 g/dL (6.4-8.2); WHITE BLOOD COUNT (AUTO) 6.7 K/uL (4.3-11.0)
--- NOTE | 2020-03-18 11:23 | NUR ---
RN MS NOTE: Called [facility], spoke to Maddy Avilez RN Diesel Trailer Mechanic. Report given.
--- NOTE | 2020-03-18 11:54 | NUR ---
Received order from Dr. Gonzalez. Discharge on hold due to Sodium level 123 with n.o. noted and carried out for fluid restriction to 1.2L/day.
--- NOTE | 2020-03-18 13:08 | NUR ---
RN MS NOTE: Called [facility]. Spoke to RN Vp Digital Marketing Social Media And Crm, Maddy Avilez. Notified her that Discharge is cancelled due to Sodium level low, 123.
[2020-03-18 16:00] VITALS: BP 102/68
--- NOTE | 2020-03-18 18:32 | NUR ---
RN MS CLOSING NOTE: Patient resting in bed comfortably. Patient denies pain or discomfort. Patient is breathing well. No SOB. Breathing unlabored and equal. No S/S of acute distress or no acute distress are noted. Maintain safety precaution. Bed in lowest position, locked. Bed side rails up x2. Call light within reach. No S/S of acute distress or no acute distress.
[2020-03-18 20:43] VITALS: BP 109/63
[2020-03-19 01:52] LABS: OSMOLALITY,URINE 419 mOS/kg (340-1090)
[2020-03-19 02:33] LABS: URINE SODIUM, RANDOM 18 mmol/l (40-220)
--- NOTE | 2020-03-19 05:35 | NUR ---
ENDING NOTES: AWAKE THIS FULL 12 HOURS. HE WILL SMILE AND SOFT MUMMBLE. HE WILL WLK TO THE DESK MAKE A REQUEST AND GO BACK TO BED. HE IS COOPERTAIVE AND KEEPS TO HIMSELF. CONTINENT THRU THE NIGHT. NO C/O FRIENDLY. NOTED WHEN HE FINISHED THE WATER IN A WATER PITCHER HE WILL PLACE IT IN HIS PLASTIC BAG WITH HIS BELONGINGS.
[2020-03-19 08:00] VITALS: BP 100/72
[2020-03-19] MEDS: ESCITALOPRAM OXALATE (10 MG) 10 MG TABLET PO SCH (08:27)
[2020-03-19] MEDS: LACTULOSE 10 G/15 ML UDC (PYXIS) PO SCH ×3 (08:27→17:16)
[2020-03-19] MEDS: ARIPIPRAZOLE 5 MG TABLET PO SCH (08:28)
[2020-03-19] MEDS: SPIRONOLACTONE 25 MG TABLET PO SCH (08:28)
[2020-03-19] MEDS: LEVETIRACETAM (250 MG) 250 MG TABLET PO SCH ×2 (08:28→21:06)
[2020-03-19] MEDS: DIVALPROEX SODIUM 250 MG TABLET.DR PO SCH ×3 (08:28→17:15)
[2020-03-19] MEDS: DOCUSATE SODIUM 100 MG CAPSULE PO SCH ×2 (08:28→17:15)
[2020-03-19] MEDS: PANTOPRAZOLE 40 MG TABLET.DR PO SCH (08:28)
[2020-03-19] MEDS: HEPARIN SODIUM, PORCINE 5000 UNITS/1 ML VIAL SQ SCH ×2 (08:29→21:07)
[2020-03-19 10:13] LABS: BASOPHILS % (AUTO) 0.4 % (0.0-2.0); EOSINOPHILS % (AUTO) 3.6 % (0.0-6.0); HEMATOCRIT 53 % (39-51); HEMOGLOBIN 17.2 g/dL (13.5-17.5); LYMPHOCYTES # (AUTO) 1.3 /CMM (0.8-4.8); LYMPHOCYTES % (AUTO) 15.8 % (20.0-44.0); MEAN CORPUSCULAR HGB CONC 32 g/dl (31.0-36.0); MEAN CORPUSCULAR VOLUME 77 fL (80-96); MONOCYTES # (AUTO) 0.7 /CMM (0.1-1.30); NEUTROPHILS # (AUTO) 5.7 /CMM (1.8-8.9); NEUTROPHILS % (AUTO) 71.2 % (43.0-81.0); PLATELET COUNT (AUTO) 208 /CMM (150-450); RED BLOOD CELL COUNT(AUTO) 6.96 MIL/uL (4.5-6.0); WHITE BLOOD COUNT (AUTO) 8.1 K/uL (4.3-11.0)
[2020-03-19 10:36] LABS: THYROID STIMULATING HORMONE 2.519 uIU/mL (0.358-3.74); URIC ACID 9.2 mg/dL (2.6-7.2)
[2020-03-19 10:37] LABS: MAGNESIUM 2.4 mg/dL (1.8-2.4); PHOSPHORUS 3.6 mg/dL (2.5-4.9)
[2020-03-19 12:13] LABS: CALCIUM, SERUM 9.8 mg/dL (8.5-10.1)
[2020-03-19 16:00] VITALS: BP 109/68
--- NOTE | 2020-03-19 19:03 | NUR ---
Patient awake , alert and oriented x1 , VS are stable , on room air tolerating well. No IV assess , MD aware. Patient cooperative and calm. All needs attended. Safety precautions in place and call light within reach. Will endorse to next shift for DILEEP
--- NOTE | 2020-03-19 19:37 | NUR ---
MS RN OPENING NOTES PATIENT RECEIVED AMBULATING, A/O X 2. STABLE ON RA WITH BREATHING EVEN AND UNLABORED, NO SOB NOTED. NO SIGNS ACUTE DISTRESS. NO COMPLAINTS OF PAIN OR DISCOMFORT- NO FACIAL GRIMACING NOTED. NO IV ACCESS- MD AWARE. AMBULATORY- STEADY. SAFETY PRECAUTIONS IN PLACE WITH BED IN LOWEST POSITION, CALL LIGHT WITHIN REACH, BREAKS ON. WILL CONTINUE TO MONITOR THROUGHOUT THE NIGHT.
[2020-03-19 20:33] VITALS: BP 105/72
--- NOTE | 2020-03-20 06:37 | NUR ---
MS RN CLOSING NOTES PATIENT RECEIVED RESTING IN BED, A/O X 2. STABLE ON RA WITH BREATHING EVEN AND UNLABORED, NO SOB NOTED. NO SIGNS ACUTE DISTRESS. NO COMPLAINTS OF PAIN OR DISCOMFORT- NO FACIAL GRIMACING NOTED. NO IV ACCESS- MD AWARE. AMBULATORY- STEADY. SAFETY PRECAUTIONS IN PLACE WITH BED IN LOWEST POSITION, CALL LIGHT WITHIN REACH, BREAKS ON. PATIENT WAS AWAKE MOST OF THE NIGHTS, AMBULATING. ALL NEEDS ATTENDED TO. WILL ENDORSE TO ONCOMING SHIFT ABOUT DILEEP.
[2020-03-20 06:51] LABS: CALCIUM, SERUM 8.8 mg/dL (8.5-10.1); CREATININE 1.1 mg/dL (0.6-1.3); POTASSIUM 6.1 mmol/L (3.5-5.1)
[2020-03-20 07:00] LABS: BASOPHILS % (AUTO) 0.4 % (0.0-2.0); EOSINOPHILS % (AUTO) 3.2 % (0.0-6.0); HEMATOCRIT 47 % (39-51); HEMOGLOBIN 15.1 g/dL (13.5-17.5); LYMPHOCYTES % (AUTO) 15.2 % (20.0-44.0); MEAN CORPUSCULAR HGB CONC 32 g/dl (31.0-36.0); MEAN CORPUSCULAR VOLUME 77 fL (80-96); MONOCYTES # (AUTO) 0.8 /CMM (0.1-1.30); MONOCYTES % (AUTO) 12.4 % (2.0-12.0); NEUTROPHILS # (AUTO) 4.7 /CMM (1.8-8.9); NEUTROPHILS % (AUTO) 68.8 % (43.0-81.0); PLATELET COUNT (AUTO) 186 /CMM (150-450); RED BLOOD CELL COUNT(AUTO) 6.13 MIL/uL (4.5-6.0); WHITE BLOOD COUNT (AUTO) 6.8 K/uL (4.3-11.0)
[2020-03-20 07:10] LABS: *SPE A/G RATIO 0.6 (0.7-1.7); *SPE ALPHA-1-GLOBULIN 0.3 g/dL (0.0-0.4); *SPE ALPHA-2-GLOBULIN 0.9 g/dL (0.4-1.0); *SPE BETA GLOBULIN 1.1 g/dL (0.7-1.3); *SPE GLOBULIN, TOTAL 5.1 g/dL (2.2-3.9); *SPE M-SPIKE Not Observed g/dL (Not Observed); *SPEGAMMA GLOBULIN 2.8 g/dL (0.4-1.8)
[2020-03-20 08:00] VITALS: BP 110/70
[2020-03-20] MEDS: DOCUSATE SODIUM 100 MG CAPSULE PO SCH (08:24)
[2020-03-20] MEDS: DIVALPROEX SODIUM 250 MG TABLET.DR PO SCH ×2 (08:24→13:14)
[2020-03-20] MEDS: LEVETIRACETAM (250 MG) 250 MG TABLET PO SCH (08:24)
[2020-03-20] MEDS: ARIPIPRAZOLE 5 MG TABLET PO SCH (08:25)
[2020-03-20] MEDS: PANTOPRAZOLE 40 MG TABLET.DR PO SCH (08:25)
[2020-03-20] MEDS: SPIRONOLACTONE 25 MG TABLET PO SCH (08:25)
[2020-03-20] MEDS: ESCITALOPRAM OXALATE (10 MG) 10 MG TABLET PO SCH (08:25)
[2020-03-20] MEDS: HEPARIN SODIUM, PORCINE 5000 UNITS/1 ML VIAL SQ SCH (08:26)
[2020-03-20] MEDS: LACTULOSE 10 G/15 ML UDC (PYXIS) PO SCH ×2 (08:26→13:14)
[2020-03-20] MEDS ORDERED: FUROSEMIDE 40 MG/4 ML VIAL IV SCH (09:30)
[2020-03-20] MEDS ORDERED: FUROSEMIDE 40 MG TABLET PO ONE (10:00)
--- NOTE | 2020-03-20 10:25 | NUR ---
Lasix 40mg IV changed to PO form due o patient has no IV line .
[2020-03-20] MEDS ORDERED: SODIUM POLYSTYRENE SULFONATE 15 G/60 ML BOTTLE PO ONE (11:00)
[2020-03-20 15:06] LABS: CALCIUM, SERUM 9.5 mg/dL (8.5-10.1); POTASSIUM 5.2 mmol/L (3.5-5.1)
--- NOTE | 2020-03-20 15:15 | NUR ---
Patient cleared for d/c to SNF by MD. Patient awake , alert and oriented x1. Breathing unlabored and even on room air , saturating above 95%, VS are stable and afebrile. No IV line and wrist bands removed. Patient ambulatory , no skin issues noted. Patient has no belongings except his clothes on. Patient unable to sighed d/c papers and unable to receive d/c instructions and education due to mental status. All needs attended before d/c. Patient picked up by ambulance
--- NOTE | 2020-03-20 15:30 | NUR ---
Called Niles DNP regarding patient's latest potassium and sodium lavel. Per Niles DNP patient is good to goo back to facility
--- NOTE | 2020-03-20 15:42 | NUR ---
[id number] called to Sharon Merchant ( [facility])
== END 2020-03-20 17:15 | DRG 291 ==
LOC: ER 22:07 → TELE1 03-15 00:02 → MEDSG1 03-16 11:56 → MEDSG2 03-16 13:14
PROVIDERS: ADMIT Internal Medicine; ATTEND Hospitalist
DX: I13.0 Hypertensive heart and chronic kidney disease with heart failure and stage 1 through stage 4 chronic kidney disease, or unspecified chronic kidney disease (principal); N17.0 Acute kidney failure with tubular necrosis; I50.33 Acute on chronic diastolic (congestive) heart failure; G93.41 Metabolic encephalopathy; J15.9 Unspecified bacterial pneumonia; E87.1 Hypo-osmolality and hyponatremia; G40.909 Epilepsy, unspecified, not intractable, without status epilepticus; Z86.73 Personal history of transient ischemic attack (TIA), and cerebral infarction without residual deficits; K74.60 Unspecified cirrhosis of liver; E87.5 Hyperkalemia; F41.9 Anxiety disorder, unspecified; F32.9 Major depressive disorder, single episode, unspecified; N18.3 Chronic kidney disease, stage 3 (moderate); F20.9 Schizophrenia, unspecified; I27.20 Pulmonary hypertension, unspecified; D75.1 Secondary polycythemia
CPT/HCPCS: 36415; 71045-TC; 80048-TC; 80053-TC; 80076-TC; 81000-TC; 82140-TC; 82728-TC; 83605-TC; 83735-TC; 83935-TC; 84100-TC; 84155; 84165; 84300-TC; 84443-TC; 84484-TC; 84550-TC; 85025-TC; 85378-TC; 86140-TC; 87040-TC; 87081-TC; 93307-TC; 93970-TC; G0378; J0456; J0696; J1644; J1940; J3490; J7060; U0003-CS

== ENCOUNTER 2020-04-14 13:38 | Inpatient (IN) | payer MEDICARE, OTHER ==
[~2020-04-14] VITALS: Ht 188 cm; Wt 99.8 kg
[~2020-04-14 13:38] MED LIST changes: +ACET-868 PO; +BISA10SU11 RC; -DIVA250T PO; +FURO-145 PO; +LATA2.5D2 EACHEYE; +LEVO50TA8 PO; +MAGN400O6 PO; +MULT-24 PO; +NA P133E RC; -PANT40TA2 PO; +RIFA550T PO; +SPIR50TA PO
--- NOTE | 2020-04-14 13:40 | NUR ---
ABI FROM [facility], C/O ABDOMINAL PAIN AND ABNORMAL LAB OF POTASSIUM 6.8, TO ER BED 11, NOTED WITH JAUNDICE AND ABDOMINAL DISTENTION, PATIENT AAO x 1, ON 2LPM O2 VIA NC W O2 SATURATION OF 96%, HOOKED TO BP CUFF AND POX, PROVIDED W WARM BLANKET, AWAITING MD DOWLING.
--- NOTE | 2020-04-14 13:54 | NUR ---
DR ROTH AT BEDSIDE
[2020-04-14] MEDS ORDERED: IV NS 0.9% 500 ML BAG IV ONE (14:00)
[2020-04-14 14:15] LABS: BASOPHILS # (AUTO) 0.1 /CMM (0.0-0.2); BASOPHILS % (AUTO) 1.5 % (0.0-2.0); EOSINOPHILS % (AUTO) 5.3 % (0.0-6.0); HEMATOCRIT 44 % (39-51); HEMOGLOBIN 13.8 g/dL (13.5-17.5); LYMPHOCYTES % (AUTO) 15.8 % (20.0-44.0); MEAN CORPUSCULAR HGB CONC 32 g/dl (31.0-36.0); MEAN CORPUSCULAR VOLUME 79 fL (80-96); MONOCYTES # (AUTO) 0.7 /CMM (0.1-1.30); MONOCYTES % (AUTO) 10.9 % (2.0-12.0); NEUTROPHILS # (AUTO) 4.1 /CMM (1.8-8.9); NEUTROPHILS % (AUTO) 66.5 % (43.0-81.0); PLATELET COUNT (AUTO) 219 /CMM (150-450); RED BLOOD CELL COUNT(AUTO) 5.53 MIL/uL (4.5-6.0); WHITE BLOOD COUNT (AUTO) 6.1 K/uL (4.3-11.0)
--- NOTE | 2020-04-14 14:16 | NUR ---
URINE SAMPLE COLLECTED VIA STRAIGHT CATHETER, URINE SAMPLE SENT TO LAB
[2020-04-14 14:22] LABS: CALCIUM, SERUM 8.6 mg/dL (8.5-10.1); CREATININE 0.9 mg/dL (0.6-1.3); POTASSIUM 5.4 mmol/L (3.5-5.1)
[2020-04-14 14:28] LABS: BILIRUBIN,DIRECT 0.6 mg/dL (0.0-0.2); BILIRUBIN,TOTAL 1.3 mg/dL (0.2-1.0)
[2020-04-14 14:40] LABS: APPEARANCE,URINE Clear (CLEAR); BILIRUBIN,URINE SMALL (NEGATIVE); BLOOD, URINE Negative Ery/uL (NEGATIVE); COLOR,URINE Yellow (YELLOW); KETONES,URINE Negative (NEGATIVE); LEUKOCYTE ESTERASE ,URINE Negative (NEGATIVE); NITRITE, URINE Negative (NEGATIVE); PROTEIN,URINE 30 mg/dl (NEGATIVE); UGLUCOSE Negative (NEGATIVE); UROBILINOGEN,URINE 0.2 EU/dL (0.2)
[2020-04-14 14:45] LABS: RBC,URINE 0-2 /HPF (0-2)
[2020-04-14 14:46] LABS: BACTERIA,URINE Few /HPF (None Seen); SQUAMOUS EPITHELIAL CELL,UR Few /HPF (None Seen); WBC,URINE 0-2 /HPF (0-3)
--- NOTE | 2020-04-14 14:57 | NUR ---
MOVE SHEET SUBMITTED TO ADMITTING AND CALLED FOR MS BED.
[2020-04-14] MEDS ORDERED: IV NS 0.9% 250 ML IV ONE (15:03)
[2020-04-14] MEDS ORDERED: CT SWABBABLE VALVE TRANS SET 1 EA INFUS.SET MC ONE (15:03)
[2020-04-14] MEDS ORDERED: IOHEXOL-300 100 ML VIAL IV ONE (15:03)
--- NOTE | 2020-04-14 15:21 | NUR ---
CALLED SUMAN ROJO
--- NOTE | 2020-04-14 16:08 | NUR ---
GOT BED 323-1
--- NOTE | 2020-04-14 16:16 | NUR ---
REPORT GIVEN TO ISABELLA JAMIL
[2020-04-14 16:30] VITALS: BP 104/59
--- NOTE | 2020-04-14 16:30 | NUR ---
ADMISSION NOTES PT BROUGHT IN VIA GURNEY FROM ER. BY SITE ADMINISTRATOR. AOX1. NO CARDIAC OR RESP DISTRESS NOTED. ON O2 VIA NC 2L/MIN. SATURATING AT 95%. BREATHING EVEN AND UNLABORED. PER REPORT, PT CAME IN FOR ABD PAIN. PT COMPLAINING OF MILD DISCOMFORT ON HIS ABDOMEN 11/13. PT CONTINENT OF B/B. ABLE TO AMBULATE BUT WITH ASSISTANCE. FALL PRECAUTIONS, SEIZURE PRECAUTION. VS CHECKED. NOTED TO BE STABLE. SAFETY PRECAUTIONS IN PLACE. BED LOCKED AND IN LOW POSITION SIDE RAILS UP X2. BED ALARM ON. CALL LIGHT WITHIN REACH. WILL CONT TO MONITOR.
[2020-04-14] MEDS ORDERED: ACETAMINOPHEN 325 MG TABLET PO PRN (17:30)
[2020-04-14] MEDS ORDERED: MAGNESIUM HYDROXIDE 30 ML UDC PO PRN (17:30)
[2020-04-14] MEDS ORDERED: MAG HYDROX/AL HYDROX/SIMETH 30 ML UDC PO PRN (17:30)
[2020-04-14] MEDS ORDERED: Z GUARD REMEDY 2 OZ OINT TP PRN (17:30)
[2020-04-14] MEDS ORDERED: ONDANSETRON HCL/PF 4 MG/2 ML VIAL IVP PRN (17:30)
--- NOTE | 2020-04-14 17:30 | NUR ---
MD NOTIFICATION NOTIFIED DR. ROJO OF PTS ADMISSION. ASKED FOR ORDERS FOR DVT PUMP AND ANTICOAGULANTS FOR DVT PPX. ALSO REPORTED ABN LAB RESULT OF K+ LEVELS 5.6. PER DR. ROJO, HE ALREADY DISCONTINUED THE ALDACTONE WHICH WAS WHAT INITIALLY CAUSED THE ELEVATED POTASSIUM LEVELS. WOUND CONSULT ALSO ORDERED FOR BLE DISCOLORATION/DRYNESS.
[2020-04-14] MEDS: LACTULOSE 10 G/15 ML UDC (PYXIS) PO SCH (18:24)
--- NOTE | 2020-04-14 19:15 | NUR ---
MS RN OPENING NOTES: RECEIVED PATIENT IN BED, AWAKE, A/O X3, WITH LITTLE SLURRED SPEECH. CALL LIGHT WITHIN REACH. BED ALARM ON. BED IN LOWEST AND LOCKED POSITION. HOB ELEVATED AT 35 DEGREES. NO SOB NOTED. NO COMPLAIN OF PAIN.WITH 02 AT 2L/MIN NASAL CANNULA.
--- NOTE | 2020-04-14 19:15 | NUR ---
DVT PUMP CENTRAL SUPPLY STAFF NOT AVAILABLE. ENDORSED TO NIGHT NURSE TO OBTAIN DVT PUMP MACHINE AND APPLY IT TO THE PT.
[2020-04-14 20:00] VITALS: BP 108/70
[2020-04-14] MEDS: LEVETIRACETAM (250 MG) 250 MG TABLET PO SCH (21:21)
[2020-04-14] MEDS: LATANOPROST EYE DROP 0.005% 2.5 ML BOTTLE EACHEYE SCH (21:22)
[2020-04-14] MEDS: ENOXAPARIN SODIUM 40 MG/0.4 ML DISP.SYRIN SQ SCH (21:24)
--- NOTE | 2020-04-14 23:30 | NUR ---
PT ON BLOODTHINER/ LEVENOX LAST GIVEN 04/14/20 AT 21:24. SPOKE TO RN/ CHERYL TO GET CONSENT. PRUCEDURE TO BE DONE AFTER 09:30 TOMORROW. RN WILL LEAVE BOTTLES FOR THE PRECEDURE IN PT'S ROOM
[2020-04-15] MEDS: LACTULOSE 10 G/15 ML UDC (PYXIS) PO SCH ×4 (00:14→17:10)
--- NOTE | 2020-04-15 05:57 | NUR ---
RN NOTES: CONTACTED LAB TO ASK FOR 5 BOTTLES FOR FLUID SPECIMEN PER [facility] TECH, THEY WILL NEED 5 SPECIMEN FLUID BOTTLES FOR PARACENTESIS IN THE AFTERNOON. SPOKE WITH AMIE, STATED HE WILL CHECK FIRST IF THEY HAVE ENOUGH BOTTLES.
--- NOTE | 2020-04-15 05:59 | NUR ---
CALLED THE PATIENT'S SISTER-PAOLO GUADARRAMA AT [phone], FOR CONSENT FOR US GUIDED PARACENTESIS LATER AFTER 12NOON, LEFT MESSAGES. WILL ENDORSE TO THE NEXT SHIFT RN.
--- NOTE | 2020-04-15 06:00 | NUR ---
MS RN CLOSING NOTES: PATIENT IN BED, CONFUSED. AWAKE. CALL LIGHT WITHIN REACH. BED ALARM ON. BED INLOWEST AND LOCKED POSITION. AMBULATORY WITH STANDBY ASSIST ONLY, PATIENT IS STEADY. NO SOB NOTED. NO COMPLAIN OF PAIN.
--- NOTE | 2020-04-15 06:04 | NUR ---
TANK COVARRUBIAS CALLED THE CENTRAL SUPPLY DEPARTMENT TO REQUEST FOR THE 5 BOTTLES TO BE USED FOR THE PROCEDURE TODAY.
--- NOTE | 2020-04-15 06:08 | NUR ---
RN NOTES: CONTACTED CENTRAL SUPPLY LEFT A MESSAGE TO PLEASE SEND 5 SPECIMEN BODY FLUID BOTTLES NEEDED FOR PARACENTESIS.
--- NOTE | 2020-04-15 06:11 | NUR ---
RECEIVED A CALL FROM CED, INFORMED HER OF THE LOVENOX SC GIVEN AT 2123 LAST NIGHT. ACCORDING TO HER , PATIENT IS NO NEED TO BE NPO FOR THE PARACENTESIS.
[2020-04-15 07:23] LABS: BASOPHILS # (AUTO) 0.1 /CMM (0.0-0.2); EOSINOPHILS % (AUTO) 5.9 % (0.0-6.0); HEMATOCRIT 43 % (39-51); HEMOGLOBIN 13.2 g/dL (13.5-17.5); LYMPHOCYTES # (AUTO) 0.9 /CMM (0.8-4.8); LYMPHOCYTES % (AUTO) 17.7 % (20.0-44.0); MEAN CORPUSCULAR HGB CONC 31 g/dl (31.0-36.0); MEAN CORPUSCULAR VOLUME 80 fL (80-96); MONOCYTES # (AUTO) 0.6 /CMM (0.1-1.30); MONOCYTES % (AUTO) 12.7 % (2.0-12.0); NEUTROPHILS # (AUTO) 3.2 /CMM (1.8-8.9); NEUTROPHILS % (AUTO) 62.7 % (43.0-81.0); PLATELET COUNT (AUTO) 178 /CMM (150-450); RED BLOOD CELL COUNT(AUTO) 5.38 MIL/uL (4.5-6.0); WHITE BLOOD COUNT (AUTO) 5.1 K/uL (4.3-11.0)
--- NOTE | 2020-04-15 07:37 | NUR ---
RECEIVED A CALL FROM THE PATIENT'S SISTER FROM [place], ABLE TO OBTAIN THE TELEPHONE CONSENT FOR THE US GUIDED PARACENTESIS TODAY WITNESSED BY THE OTHER NURSE KIERAN.
[2020-04-15 07:55] LABS: ALBUMIN 2.3 g/dL (3.4-5.0); BILIRUBIN,TOTAL 0.9 mg/dL (0.2-1.0); CALCIUM, SERUM 8.5 mg/dL (8.5-10.1); CREATININE 0.8 mg/dL (0.6-1.3); MAGNESIUM 2.3 mg/dL (1.8-2.4); PHOSPHORUS 3.4 mg/dL (2.5-4.9); POTASSIUM 4.4 mmol/L (3.5-5.1); TOTAL PROTEIN, SERUM 7.4 g/dL (6.4-8.2)
[2020-04-15 08:00] VITALS: BP 100/69
--- NOTE | 2020-04-15 08:00 | NUR ---
m/s strategic partnership representative: initial assessment received pt in bed awake, alert to self only, pt mumbles from time to time. able to make simple needs known. pt for us guided paracentesis today. inr ordered per tech. no c/o pain or any discomfort. instructed to call for assistance. will continue to monitor.
[2020-04-15] MEDS: ARIPIPRAZOLE 5 MG TABLET PO SCH (08:26)
[2020-04-15] MEDS: DOCUSATE SODIUM 100 MG CAPSULE PO SCH ×2 (08:26→17:09)
[2020-04-15] MEDS: MULTIVITAMINS,THERAGRAN 1 UDTAB TABLET PO SCH (08:26)
[2020-04-15] MEDS: LEVETIRACETAM (250 MG) 250 MG TABLET PO SCH ×2 (08:26→21:28)
[2020-04-15] MEDS: RIFAXIMIN 550 MG TABLET PO SCH ×2 (08:26→17:10)
[2020-04-15] MEDS: PROPRANOLOL HCL 10 MG TABLET PO SCH ×2 (08:27→17:10)
[2020-04-15] MEDS: LEVOTHYROXINE SODIUM 50 MCG TABLET PO SCH (08:27)
[2020-04-15] MEDS: ESCITALOPRAM OXALATE (10 MG) 10 MG TABLET PO SCH (08:27)
[2020-04-15] MEDS: FUROSEMIDE 20 MG TABLET PO SCH ×2 (08:29→17:09)
--- NOTE | 2020-04-15 09:50 | NUR ---
WOUND CARE CONSULT: PT PRESENTS AMBULATORY AND CONTINENT WITH SOME DISCOLORATION AND EDEMA TO LOWER LEGS, PRESENT ON ADMISSION. PT IS ELEVATING HIS LEGS ADVISED BY NURSING STAFF. WILL SEE PRN. CURRENT DARREN SCORE IS 20.
--- NOTE | 2020-04-15 10:45 | NUR ---
m/s office automation clerk: notes radiologist and tech at bedside performing bedside us guided paracentesis.
--- NOTE | 2020-04-15 11:10 | NUR ---
m/s clinical data manager: notes us guided paracentesis completed with 3.4 liter of cloudy orange output. called dr. hameed if he wants a sent out and inform me that he will order all the tests.
--- NOTE | 2020-04-15 12:05 | NUR ---
m/s store planner: notes brought pleural fluid to lab for tests at this time.
[2020-04-15 16:00] VITALS: BP 96/60
--- NOTE | 2020-04-15 16:00 | NUR ---
m/s computer operations manager: notes in bed resting comfortable. no distress noted. will continue to monitor.
--- NOTE | 2020-04-15 18:45 | NUR ---
m/s bit tapper: notes resting comfortable in bed. reality orientation provided prn. will continue to monitor.
--- NOTE | 2020-04-15 19:05 | NUR ---
m/s event sales assistant: notes bedside report given to geronimo (rn) for continuity of care.
--- NOTE | 2020-04-15 19:40 | NUR ---
MS RN NOTE: PATIENT RESTING IN BED, NO ACUTE DISTRESS NOTED. BREATHING EVEN AND UNLABORED, NO SOB NOTED. IV TO LFA IN PLACE. BED LOCKED AND IN LOWEST POSITION, CALL LIGHT IN REACH. WILL CONTINUE TO MONITOR.
[2020-04-15 20:00] VITALS: BP 102/57
--- NOTE | 2020-04-15 20:45 | NUR ---
MS RN NOTE: PATIENT OXYGEN SATURATION LOW AT 91% PER DEPARTMENT ASSISTANT CHECK. PATIENT HAD BEEN WALKING DOWN HALLWAY. OXYGEN SATURATION RECHECKED AFTER PATIENT BACK TO BED, 94% NOW ON ROOM AIR WITH NO COMPLAINS OF SOB. WILL CONTINUE TO MONITOR.
[2020-04-15] MEDS: ENOXAPARIN SODIUM 40 MG/0.4 ML DISP.SYRIN SQ SCH (21:29)
[2020-04-15] MEDS: LATANOPROST EYE DROP 0.005% 2.5 ML BOTTLE EACHEYE SCH (21:34)
[2020-04-16] MEDS: LACTULOSE 10 G/15 ML UDC (PYXIS) PO SCH ×4 (00:26→17:10)
--- NOTE | 2020-04-16 06:20 | NUR ---
MS RN NOTE: PATIENT RESTING IN BED, NO ACUTE DISTRESS NOTED. BREATHING EVEN AND UNLABORED, NO SOB NOTED. IV TO LFA IN PLACE. BED LOCKED AND IN LOWEST POSITION, CALL LIGHT IN REACH. WILL ENDORSE TO DAY NURSE TO CONTINUE WITH PLAN OF CARE.
[2020-04-16 08:00] VITALS: BP 114/64
--- NOTE | 2020-04-16 08:00 | NUR ---
m/s flight dispatcher: initial assessment received pt in bed awake, alert to self only, pt mumbles from time to time. able to make simple needs known. no distress noted. will continue to monitor.
[2020-04-16] MEDS: MULTIVITAMINS,THERAGRAN 1 UDTAB TABLET PO SCH (08:18)
[2020-04-16] MEDS: FUROSEMIDE 20 MG TABLET PO SCH ×2 (08:18→16:55)
[2020-04-16] MEDS: ARIPIPRAZOLE 5 MG TABLET PO SCH (08:18)
[2020-04-16] MEDS: ESCITALOPRAM OXALATE (10 MG) 10 MG TABLET PO SCH (08:18)
[2020-04-16] MEDS: DOCUSATE SODIUM 100 MG CAPSULE PO SCH ×2 (08:18→16:55)
[2020-04-16] MEDS: PROPRANOLOL HCL 10 MG TABLET PO SCH ×2 (08:18→16:55)
[2020-04-16] MEDS: RIFAXIMIN 550 MG TABLET PO SCH ×2 (08:18→16:55)
[2020-04-16] MEDS: LEVOTHYROXINE SODIUM 50 MCG TABLET PO SCH (08:19)
[2020-04-16] MEDS: LEVETIRACETAM (250 MG) 250 MG TABLET PO SCH ×2 (08:19→22:17)
--- NOTE | 2020-04-16 13:28 | NUR ---
m/s slag worker: notes rapid covid swab done by cn. specimen sent to lab.
--- NOTE | 2020-04-16 15:15 | NUR ---
m/s forestry patrolman: pulmo consult seen by dr. saavedra with orders of abg and cta. orders acknowledged. delbert lorenzo (sister) notified and made aware and given consent over the phone with another nurse as a witnessed.
--- NOTE | 2020-04-16 15:30 | NUR ---
m/s lpn medical assistant: notes attempted to insert iv gauge#18, but unsuccessful. morris (tech) at bedside and made aware. morris (tech) will ask juan c if he can put a line as stated.
--- NOTE | 2020-04-16 15:40 | NUR ---
m/s waste water or water plant operator: notes covid rapid test negative. cn and cm made aware. pt for d'c planning tomorrow.
[2020-04-16 15:43] LABS: ABG BASE EXCESS -5.6 mmol/L; ABG OXYGEN SATURATION 90.6 % (92.0-98.5); ABG PCO2 29.3 mmHg (35.0-45.0); ABG PH 7.402 (7.350-7.450); ABG PO2 59.3 mmHg (75.0-100.0); AaDO2 55.3 mmHg; COHb 0.9 % (0.5-1.5); O2Hb 89.8 % (94.0-97.0); SITE, ABG Right Radial; VENT MODE, BG room air
--- NOTE | 2020-04-16 15:45 | NUR ---
m/s data entry representative: notes sam modi (r.t.) called and informed me that dr. saavedra is aware of results and wants pt on o2 at 1l/min via n/c. o2 at 1l/min via n/c provided as ordered. pt understands teaching.
[2020-04-16 16:00] VITALS: BP 100/50
--- NOTE | 2020-04-16 18:10 | NUR ---
m/s academic dean: notes f/u made to radiology dept re: cta, agustina caceres is doing cta at this time and will have him call me when finished.
--- NOTE | 2020-04-16 18:55 | NUR ---
m/s front office spec: notes e.r. nurse attempted to insert iv, but unsuccessful. will endorsed accordingly.
--- NOTE | 2020-04-16 19:10 | NUR ---
m/s rate clerk: notes report given to brice (filiberto) for continuity of care.
--- NOTE | 2020-04-16 19:39 | NUR ---
JESSY PRAKASH, STATED FEELS NAUSEATED, JUST HAD SOPHIA FEW MINUTES AGO. WILL CONTINUE TO OBSERVE PATIENT, ASSISTED BACK TO BED. NO EMESIS SEEN. ENCOURAGED 02 USE. NO SOB OF THIS TIME. SAFETY PRECAUTIONS EMPHASIZED, REMINDED TO CALL STAFF FOR ANY FURTHER DISCOMFORTS, CALL LIGHT USE REVIEWED WITH PATIENT. APPEARS TO UNDERSTAND.CLOSELY WATCHED.
[2020-04-16 20:00] VITALS: BP 104/67
--- NOTE | 2020-04-16 21:30 | NUR ---
MSRN UNABLE TO INSERT NEW LINE FOR CTA. HAVE FORM BUILDER TO INSERT, UNSUCCESSFUL, VERY HARD STICK. \\
[2020-04-16] MEDS: ENOXAPARIN SODIUM 40 MG/0.4 ML DISP.SYRIN SQ SCH (22:18)
[2020-04-16] MEDS: LATANOPROST EYE DROP 0.005% 2.5 ML BOTTLE EACHEYE SCH (22:20)
[2020-04-17] MEDS: LACTULOSE 10 G/15 ML UDC (PYXIS) PO SCH ×4 (00:29→17:49)
--- NOTE | 2020-04-17 02:35 | NUR ---
MSRN TAKES 02 OFF, NO SOB OF THIS TIME. FOR CTA IN AM TODAY.
--- NOTE | 2020-04-17 06:15 | NUR ---
MSRN SPOKE TO SAW SHARPENER, WILL START IV LINE.
--- NOTE | 2020-04-17 06:45 | NUR ---
MSRN KEPT NPO FOR NOW, LAYER OFF AT BEDSIDE.
--- NOTE | 2020-04-17 07:08 | NUR ---
Unable to get a 20g IV, RN notified. RN will put in order for midline. Please call Radiology at ext. [phone] Pulmonary Angiogram.
[2020-04-17] MEDS: LEVOTHYROXINE SODIUM 50 MCG TABLET PO SCH (07:30)
--- NOTE | 2020-04-17 07:49 | NUR ---
MS RN OPENING NOTE PATIENT IN BED RESTING COMFORTABLY. PATIENT IN NO ACUTE DISTRESS. NO SOB NOTED. PATIENT BREATHING IS EVEN AND UNLABORED. PATIENT BED ALARM IS ON. SAFETY PRECAUTIONS IN PLACE. RECEIVED PATIENT WITH NO IV ACCESS AT THIS TIME DUE TO PATIENT HARDSTICK WITH MULTIPLE UNSUCCESSFUL ATTEMPTS PER VÍCTOR JAMIL. PER VÍCTOR JAMIL CONTACTED JULIEN ROJO FOR MIDLINE ORDER AND NOTIFIED RETAIL PHARMACIST NATTY FLEMING. PATIENT IS NPO STATUS AT THIS TIME FOR CTA. PATIENT BED IS LOCKED AND IN LOWEST POSITION. CALL LIGHT WITHIN REACH. WILL CONTINUE TO MONITOR.
[2020-04-17 08:00] VITALS: BP 94/62
--- NOTE | 2020-04-17 08:35 | NUR ---
MS RN NOTE HELD SYNTHROID 0730 AM DOSE DUE TO PATIENT NPO STATUS FOR CTA.
[2020-04-17] MEDS: PROPRANOLOL HCL 10 MG TABLET PO SCH ×2 (09:00→17:49)
--- NOTE | 2020-04-17 09:05 | NUR ---
MS RN NOTE PATIENT HAS LEFT WRIST 20 INSERTED BUT WHEN CALLED TO RADIOLOGY SHONDA THE TECH HE STATES PATIENT NEEDS SITE ON AC AT LEAST 18G. PATIENT IS A HARDSTICK AND UNABLE TO GET IV ACCESS ANYWHERE ELSE WITH MULTIPLE PREVIOUS UNSUCCESSFUL ATTEMPTS FROM DIFFERENT RNS. SPOKE WITH DR. TEJEDA AND PER DR. ILEANA CHAN ORDER FOR MIDLINE INSERTION. INFORMED AND NOTIFIED PAN WASHER NING, SHE IS MADE AWARE. INFORMED TO RADIOLOGY IF PATIENT NEEDS TO REMAIN NPO SINCE PATIENT IS AWAITING MIDLINE INSERTION. PER SHONDA IN RADIOLOGY PATIENT CAN EAT AT THIS TIME AND HAVE MEDICATIONS AND ONCE MIDLINE IS PLACED PATIENT CAN GO BACK TO NPO.
--- NOTE | 2020-04-17 09:27 | NUR ---
MS RN NOTE PATIENT HAS RIGHT AC 20G PLACED. PATENT AND INTACT. CALLED TO RADIOLOGY AND SPOKE TO LUANA AND HE STATED HE WILL TAKE PATIENT FOR CT PULMONARY ANGIOGRAM. NO NEED TO WAIT FOR MIDLINE AT THIS TIME. LUANA STATED HE CAN COME GET PATIENT SOON AND PATIENT CAN TAKE MEDICATIONS WITH WATER PER LUANA.
[2020-04-17] MEDS: FUROSEMIDE 20 MG TABLET PO SCH ×2 (09:52→17:51)
[2020-04-17] MEDS: RIFAXIMIN 550 MG TABLET PO SCH ×2 (09:52→17:49)
[2020-04-17] MEDS: ARIPIPRAZOLE 5 MG TABLET PO SCH (09:52)
[2020-04-17] MEDS: DOCUSATE SODIUM 100 MG CAPSULE PO SCH ×2 (09:52→17:49)
[2020-04-17] MEDS: MULTIVITAMINS,THERAGRAN 1 UDTAB TABLET PO SCH (09:52)
[2020-04-17] MEDS: ESCITALOPRAM OXALATE (10 MG) 10 MG TABLET PO SCH (09:52)
[2020-04-17] MEDS: LEVETIRACETAM (250 MG) 250 MG TABLET PO SCH (09:52)
[2020-04-17] MEDS ORDERED: IOHEXOL-350 100 ML VIAL IV ONE (11:03)
[2020-04-17] MEDS ORDERED: IV NS 0.9% 250 ML IV ONE (11:04)
[2020-04-17] MEDS ORDERED: CT SWABBABLE VALVE TRANS SET 1 EA INFUS.SET MC ONE (11:04)
[2020-04-17 16:00] VITALS: BP 109/69
--- NOTE | 2020-04-17 17:02 | NUR ---
MS RN NOTE CALLED TO RADIOLOGY TO FOLLOW UP WITH STAT LOWER BILATERAL VENOUS DOPPLER. SPOKE WITH STEVE AND HE STATED THE TECH IS CURRENTLY IN ER AND WILL COME UP AND SOON HE CAN.
--- NOTE | 2020-04-17 19:05 | NUR ---
RN MS OPENING NOTES RECEIVED PATIENT IN BED AWAKE ALERT AND ORIENTED X2, ABLE TO MAKE NEEDS KNOWN , AMBULATORY STEADY, RESPIRATIONS EVEN AND UNLABORED WITH EQUAL RISE AND FALL OF CHEST, DENIES ANY PAIN OR DISCOMFORT AT THIS TIME,IV SITE TO LEFT FA #20G AND RIGHT AC #20 G INTACT AND PATENT, NO REDNESS, NO INFILTRATION PRESENT, PENDING DISCHARGE. REMAINS COMFORTABLE AT THIS TIME, ALL NEEDS ATTENDED WILL CONTINUE TO MONITOR AND ADDRESS NEEDS.
--- NOTE | 2020-04-17 19:11 | NUR ---
MS RN CLOSING NOTE PATIENT MEDICALLY CLEARED FOR DISCHARGE. PATIENT IN BED RESTING COMFORTABLY. PATIENT IN NO ACUTE DISTRESS. NO SOB NOTED. PATIENT BREATHING IS EVEN AND UNLABORED. DC INSTRUCTIONS PROVIDED. PATIENT UNABLE TO COMPREHEND. UPDATED SISTER PAOLO CHEN ON DISCHARGE. SISTER IS MADE AWARE. PATIENT SKIN ASSESSED. NO NEW SKIN BREAKDOWN NOTED. PATIENT BELONGINGS STILL AT THE BEDSIDE, DC PAPERWORK AND BELONGINGS LIST SIGNED BY TWO NURSES. ENDORSED TO COPY WRITER TO REMOVE IV LINES AND ID BAND BEFORE LEAVING WITH AMBULANCE BACK TO [facility]. REPORT GIVEN TO NEGAR JAMIL AT [facility]. PATIENT BED ALARM IS ON. SAFETY PRECAUTIONS IN PLACE. PATIENT KEPT CLEAN, DRY, AND COMFORTABLE THROUGHOUT SHIFT. PATIENT BED IS LOCKED AND IN LOWEST POSITION. CALL LIGHT WITHIN REACH. WILL ENDORSE CARE AND DISCHARGE TO PM SHIFT FOR DILEEP.
[2020-04-17 20:00] VITALS: BP 115/71
--- NOTE | 2020-04-17 21:03 | NUR ---
rn ms notes patient was safely discharged via ambulance with 2 driller's assistant safely placed on [facility],discharging to [facility], patient aware, id band removed, iv site removed, all belongings with patient, discharge paperwork given to driller's assistant. left in stable condition discharge v.s 97.9,115/71,94 ,94% ra, 18,0/10.
== END 2020-04-17 21:00 | DRG 433 ==
LOC: ER 13:43 → MED 16:10
PROVIDERS: ADMIT Nurse Practitioner Acute Care
PROC: 0W9G3ZZ Drainage of Peritoneal Cavity, Percutaneous Approach (ICD-10-PCS; principal; 2020-04-15)
DX: K74.60 Unspecified cirrhosis of liver (principal); I13.0 Hypertensive heart and chronic kidney disease with heart failure and stage 1 through stage 4 chronic kidney disease, or unspecified chronic kidney disease; I50.32 Chronic diastolic (congestive) heart failure; R18.8 Other ascites; K56.7 Ileus, unspecified; J90 Pleural effusion, not elsewhere classified; K76.6 Portal hypertension; F32.9 Major depressive disorder, single episode, unspecified; N18.9 Chronic kidney disease, unspecified; E87.5 Hyperkalemia; F20.9 Schizophrenia, unspecified; G40.909 Epilepsy, unspecified, not intractable, without status epilepticus; Z86.73 Personal history of transient ischemic attack (TIA), and cerebral infarction without residual deficits; I27.20 Pulmonary hypertension, unspecified; R74.0 Nonspecific elevation of levels of transaminase and lactic acid dehydrogenase [LDH]; R74.8 Abnormal levels of other serum enzymes; K31.84 Gastroparesis; K72.90 Hepatic failure, unspecified without coma
CPT/HCPCS: 36415; 36600; 71045-TC; 76942-TC; 80048-TC; 80053-TC; 80061-TC; 80076-TC; 81000-TC; 82140-TC; 83690-TC; 83735-TC; 84100-TC; 84484-TC; 85025-TC; 85610-TC; 87070-TC; 87081-TC; 87186-TC; 88108-TC; 88305-TC; 89051-TC; 93970-TC; G0378; J1650; J2405; J7040; J7050; Q9967

== ENCOUNTER 2020-06-13 19:49 | Inpatient (IN) | payer MEDICARE, OTHER ==
[~2020-06-13] VITALS: Ht 188 cm; Wt 91.2 kg
--- NOTE | 2020-06-13 20:00 | NUR ---
PT ABI FROM [facility] C/O RLQ PAIN +N/V X 1 DAY. PT ANSWERS TO YES OR NO QUESTIONS ONLY, RESPIRATIONS EVEN AND UNLABORED ON RA W/ NAD NOTED. PT CONNECTED TO THE SHOE SINGER AND POX.
--- NOTE | 2020-06-13 20:04 | NUR ---
SENIOR ADMINISTRATIVE ASSOCIATE AT BEDSIDE FOR BLOOD DRAW
--- NOTE | 2020-06-13 20:04 | NUR ---
EKG AT BEDSIDE
[2020-06-13] MEDS ORDERED: LIDOCAINE 2% JEL UROJET 10 ML MM ONE (20:31)
[2020-06-13 20:38] LABS: BASOPHILS % (AUTO) 0.5 % (0.0-2.0); EOSINOPHILS % (AUTO) 1.4 % (0.0-6.0); HEMATOCRIT 53 % (39-51); HEMOGLOBIN 16.1 g/dL (13.5-17.5); LYMPHOCYTES # (AUTO) 0.6 /CMM (0.8-4.8); LYMPHOCYTES % (AUTO) 10.2 % (20.0-44.0); MEAN CORPUSCULAR HGB CONC 30 g/dl (31.0-36.0); MEAN CORPUSCULAR VOLUME 82 fL (80-96); MONOCYTES # (AUTO) 0.3 /CMM (0.1-1.30); MONOCYTES % (AUTO) 5.4 % (2.0-12.0); NEUTROPHILS # (AUTO) 5.2 /CMM (1.8-8.9); NEUTROPHILS % (AUTO) 82.5 % (43.0-81.0); PLATELET COUNT (AUTO) 167 /CMM (150-450); RED BLOOD CELL COUNT(AUTO) 6.47 MIL/uL (4.5-6.0); WHITE BLOOD COUNT (AUTO) 6.3 K/uL (4.3-11.0)
[2020-06-13 20:45] LABS: CALCIUM, SERUM 9.7 mg/dL (8.5-10.1); CARBON DIOXIDE 19 mmol/L (21-32); CHLORIDE 100 mmol/L (98-107); CREATININE 1.1 mg/dL (0.6-1.3); GLUCOSE 99 mg/dL (74-106); POTASSIUM 5.8 mmol/L (3.5-5.1); SODIUM SERUM 131 mmol/L (136-145); UREA NITROGEN, BLOOD 40 mg/dL (7-18)
[2020-06-13 20:51] LABS: ALANINE AMINOTRANSFERASE 57 U/L (12-78); ALBUMIN 4.2 g/dL (3.4-5.0); ALKALINE PHOSPHATASE 718 U/L (46-116); ASPARTATE AMINOTRANSFERASE 43 U/L (15-37); BILIRUBIN,DIRECT 0.8 mg/dL (0.0-0.2); BILIRUBIN,TOTAL 1.7 mg/dL (0.2-1.0); LIPASE 74 U/L (73-393); TOTAL PROTEIN, SERUM 10.2 g/dL (6.4-8.2)
--- NOTE | 2020-06-13 20:53 | NUR ---
URINE COLLECTED AND SENT TO LAB
[2020-06-13] MEDS ORDERED: CT SWABBABLE VALVE TRANS SET 1 EA INFUS.SET MC ONE (21:02)
[2020-06-13] MEDS ORDERED: IV NS 0.9% 250 ML IV ONE (21:02)
[2020-06-13] MEDS ORDERED: IOHEXOL-300 100 ML VIAL IV ONE (21:02)
[2020-06-13 21:05] LABS: APPEARANCE,URINE Clear (CLEAR); BILIRUBIN,URINE Negative (NEGATIVE); BLOOD, URINE Negative Ery/uL (NEGATIVE); COLOR,URINE Yellow (YELLOW); KETONES,URINE Negative (NEGATIVE); LEUKOCYTE ESTERASE ,URINE Negative (NEGATIVE); NITRITE, URINE Negative (NEGATIVE); PH,URINE 5.5 (5.0-8.0); PROTEIN,URINE Negative (NEGATIVE); UGLUCOSE Negative (NEGATIVE); UROBILINOGEN,URINE 0.2 EU/dL (0.2)
--- NOTE | 2020-06-13 21:11 | NUR ---
PT TAKEN TO RADIOLOGY FOR CT
--- NOTE | 2020-06-13 21:24 | NUR ---
PT BACK FORM RADIOLOGY
--- NOTE | 2020-06-13 21:24 | NUR ---
COVID SWAB COLLECTED AND SENT TO LAB
[2020-06-13] MEDS ORDERED: IV NS 0.9% 500 ML BAG IV ONE (21:30)
[2020-06-13] MEDS ORDERED: FUROSEMIDE 20 MG/2 ML VIAL IV ONE (21:30)
[2020-06-13] MEDS ORDERED: FUROSEMIDE 20 MG/2 ML VIAL ONE (21:48)
--- NOTE | 2020-06-13 21:48 | NUR ---
JARVIS CHAN TALKING TO DR. EASTMAN REGARDING PT.
[2020-06-13] MEDS ORDERED: PIPERACILLIN /TAZOBACTAM 3.375 G VIAL IV ONE (21:59)
[2020-06-13] MEDS ORDERED: PIPERACILLIN /TAZOBACTAM 3.375 G in IV D5W 50 ML IV ONE (22:00)
--- NOTE | 2020-06-13 22:00 | NUR ---
DR. JACI MARINO PER JARVIS CHAN ORDER.
--- NOTE | 2020-06-13 22:02 | NUR ---
JARVIS CHAN TALKING TO DR. BEATTY REGARDING PT ADMISSION.
[2020-06-13] MEDS ORDERED: DEXTROSE 50%-WATER 50 ML DISP.SYRIN IV ONE (22:30)
[2020-06-13] MEDS ORDERED: INSULIN REGULAR, HUMAN 100 UNIT/ML 10 ML VIAL IV ONE (22:30)
--- NOTE | 2020-06-13 22:40 | NUR ---
PT REFUSED NG TUBE. MADE AWARE
[2020-06-13] MEDS ORDERED: INSULIN REGULAR, HUMAN 100 UNIT/ML 10 ML VIAL ONE (22:41)
[2020-06-13] MEDS ORDERED: DEXTROSE 50%-WATER 50 ML DISP.SYRIN ONE (22:41)
--- NOTE | 2020-06-13 22:53 | NUR ---
NG TUBE OUTPUT 700 ML
--- NOTE | 2020-06-13 22:56 | NUR ---
REPORT GIVEN TO LOULOU AYALA FOR DILEEP
--- NOTE | 2020-06-13 23:15 | NUR ---
REPORT GIVEN TO LOULOU COVARRUBIAS FOR DILEEP
--- NOTE | 2020-06-13 23:34 | NUR ---
PT TRANSFERRED TO ROOM IN STABLE CONDITION
[2020-06-14] VITALS (7 sets, daily range): BP systolic 106–121; BP diastolic 65–74
[2020-06-14] MEDS ORDERED: ACETAMINOPHEN 325 MG TABLET PO PRN
[2020-06-14] MEDS ORDERED: ONDANSETRON HCL/PF 4 MG/2 ML VIAL IVP PRN
[2020-06-14] MEDS ORDERED: MAGNESIUM HYDROXIDE 30 ML UDC PO PRN
[2020-06-14] MEDS ORDERED: MORPHINE SULFATE INJ 2 MG/ML DISP.SYRIN IV PRN
[2020-06-14] MEDS ORDERED: Z GUARD REMEDY 2 OZ OINT TP PRN
[2020-06-14] MEDS ORDERED: MAG HYDROX/AL HYDROX/SIMETH 30 ML UDC PO PRN
--- NOTE | 2020-06-14 | NUR ---
ADMISSION NOTES: Received report from Juanita JAMIL. Pt brought to the unit via gurney, transferred to bed. Pt a/o x1, confused, garbled speech, on 3l oxygen via nc respirations even and unlabored. pt calm, flat affect, no facial grimace noted. Oriented pt to unit policy and hourly rounding. received with g 24 Iv access patent and flushing well on hl. placed on tele monitoring aflutter with first degree av block hr 80. skin assessment performed, please see skin assessment log. per er report, pt has ngtube inserted, with 700 output of gastric drainage. however, pt pulled out the ngtube, which they informed er md. will reinsert again. suction set up secured, kept side rails padded. inventory of belonging completed by roosevelt liu. safety precautions for fall initiated, call light in reach, will continue monitoring pt.
--- NOTE | 2020-06-14 00:30 | NUR ---
rn notes/ngtube insertion: ngtube insertion performed with assistance of another rn ramakrishna and roosevelt liu to help holding pt's hands/arms. pt agree for procedure however he kept touching rn's hand while inserting tube. 1st ngtube insertion on left nare was unsuccessful, as resistance is met. 2nd try is using right nare, able to insert until 25cm, however pt started coughing hard, and notice to have sudden nose bleed which has continuous bright red blood oozing from right nare /nose, with minimal clot. tube was then removed. pressured applied for 5mins. also ice pack provided on top of nose bridge area for 5mins, on and off. total of 15mins till bleeding stop. will notify .
--- NOTE | 2020-06-14 00:45 | NUR ---
rn notes/epic paged: paged epic md archivist economic history, awaiting call back
--- NOTE | 2020-06-14 00:47 | NUR ---
rn notes/epic md call back: received call back from dr tejeda. relayed to md that we tried inserting ngtube twice, but unsuccessful, first try meeting resistance, 2nd try on right nare when the tube reach 25cm pt started having nosebleed continuously with some blot clots. also pt now refusing to reinsert again. per md, just document it, and also notified md regarding pt's blood glucose, bs is 86, rn suggesting ivf, pt npo. per md, no ivf needed. will continue monitoring pt.
--- NOTE | 2020-06-14 03:23 | NUR ---
rn notes: sinus rhym with 1st degree avblock hr 78
--- NOTE | 2020-06-14 05:53 | NUR ---
accu check 78: finger stick glucose check performed and result obtained is 78. pt awake, director of quantitative research currently providing bed bath to pt. pt tracks with eyes. open eyes spontaneously. respirations even and unlabored.
--- NOTE | 2020-06-14 07:00 | NUR ---
Received patient in stable condition, gait is steady, IV line intact and patent. NPO status . Swallow through is pending. Will continue to monitor.
[2020-06-14 07:20] LABS: CALCIUM, SERUM 8.9 mg/dL (8.5-10.1); PHOSPHORUS 4.3 mg/dL (2.5-4.9); POTASSIUM 5.3 mmol/L (3.5-5.1)
--- NOTE | 2020-06-14 07:28 | NUR ---
End of shift report: Pt remains npo, tried inserting ngtube again but unsuccessful. Md aware. Pt remains on 3l oxygen via nc, respirations even and unlabored. Seizure precautions maintained.a/o x1, unclear to garbled speech. Iv access remains patent and flushing well, on hl, no s/s of iv infiltration noted. Remains on tele monitoring sinus rhythm with 1st degree avb hr 72. Plan of care: surgery consult, paracentesis pending, nephro eval, diuresis as needed. Safety precautions for fall remains engaged, call light in reach, will endorse to day rn for continuity of care.
[2020-06-14 07:34] LABS: BASOPHILS % (AUTO) 0.6 % (0.0-2.0); EOSINOPHILS % (AUTO) 1.9 % (0.0-6.0); HEMATOCRIT 47 % (39-51); LYMPHOCYTES # (AUTO) 0.7 /CMM (0.8-4.8); LYMPHOCYTES % (AUTO) 10.4 % (20.0-44.0); MEAN CORPUSCULAR HGB CONC 32 g/dl (31.0-36.0); MEAN CORPUSCULAR VOLUME 80 fL (80-96); MONOCYTES # (AUTO) 0.7 /CMM (0.1-1.30); NEUTROPHILS # (AUTO) 5.4 /CMM (1.8-8.9); NEUTROPHILS % (AUTO) 77.1 % (43.0-81.0); PLATELET COUNT (AUTO) 176 /CMM (150-450); RED BLOOD CELL COUNT(AUTO) 5.92 MIL/uL (4.5-6.0)
--- NOTE | 2020-06-14 08:09 | NUR ---
WOUND CARE CONSULT: REVIEWED CHART, NURSING DOCUMENTATION AND PHOTOS WHICH INDICATE RAISED AREA TO ABDOMEN, PRESENT ON ADMISSION. RECOMMENDATIONS MADE FOR SKIN PROTECTION. DISCUSSED WITH NURSING STAFF. RN TO DISCUSS ABDOMEN WITH MD. WILL SEE PRN. MD IN AGREEMENT WITH PLAN OF CARE. CURRENT DARREN SCORE IS 15.
--- NOTE | 2020-06-14 08:10 | NUR ---
Patient off the oxygen saturation above 95%.
[2020-06-14] MEDS ORDERED: DIATR MEGLU/DIATRIZOATE SODIUM 120 ML BOTTLE (GASTROGRAPHIN) ONE (09:18)
--- NOTE | 2020-06-14 12:20 | NUR ---
Swallow through test done. patient tolerated well . Patient had one small BM after the test
[2020-06-14] MEDS ORDERED: FUROSEMIDE 20 MG/2 ML VIAL IV ONE (14:30)
[2020-06-14] MEDS: HYDROCODONE/APAP 5/325MG TABLET PO PRN (15:01)
--- NOTE | 2020-06-14 16:00 | NUR ---
Patient negative for COVID test. Nursing mechanical supervisor notified.
--- NOTE | 2020-06-14 16:30 | NUR ---
Dr. Mckeon consult tomorrow in am per Lizette LOMBARDI. Keep patient NPO and start D5 NS at 50 ml/hr
--- NOTE | 2020-06-14 17:10 | NUR ---
Patient transferred to room 119 SEBASTIÁN , report given to Esther JAMIL
--- NOTE | 2020-06-14 17:15 | NUR ---
SEBASTIÁN RN NOTES Patient transferred FROM [facility] SURGE REPORT GOT FROM SHANT
[2020-06-14] MEDS: IV D5/ 0.9% NACL 1,000 ML IV PRN (17:31)
--- NOTE | 2020-06-14 19:15 | NUR ---
SEBASTIÁN RN CLOSING NOTES PT IS RESTING IN BED. ALERT AND ORIENTED X1. PT IS ON RA. PT IS ON NPO. LFA #24. COB WITH ASSISTANCE.WAITING FOR DR ACOSTA CONSULT POSSIBILITY OF PARENTHESIS. SAFETY MEASUREMENTS ARE IMPLEMENTED. BED IS IN THE LOWEST POSITION. RAILS ARE UP X2. CALL LIGHT WITHIN REACH. WILL ENDORSE TO DENTAL HYGIENE PROFESSOR NURSE.
--- NOTE | 2020-06-14 19:30 | NUR ---
rn opening notes Received the client sitting on bed, the client is independent for all ADLs. The is alert but seemingly confused, follow simple commands but disoriented to specific instructions. No s/s of distress at this time, no s/s of pain, the client denies pain. Safety mechanism in place, will continue to monitor.
--- NOTE | 2020-06-15 | NUR ---
the client remains stable at this time. no s/s of pain nor distress. Client client remains with incongruent behavior. Undesrtands simple commands but forgetful. Accidentally pulled out forearm IV. No bleeding.
--- NOTE | 2020-06-15 07:43 | NUR ---
SEBASTIÁN RN OPENING NOTES PT IS RESTING IN BED. ALERT AND ORIENTED X1/ CONFUSED. PT IS ON RA WITH NO SIGN OF RESPIRATORY DISTRESS NOTED. PT IS ON NPO. LAC #22 IS RUNNING WELL, INTACT AND NO SIGN OF INFILTRATION NOTED AND D5 O.9% OF NS @75 ML/HR.WAITING FOR DR ACOSTA CONSULT POSSIBILITY OF PARENTHESIS. SAFETY MEASUREMENTS ARE IMPLEMENTED PER HOSPITAL PROTOCOL. BED IS IN THE LOWEST POSITION. RAILS ARE UP X2. CALL LIGHT WITHIN REACH. WILL CONTINUE TO MONITOR
--- NOTE | 2020-06-15 09:45 | NUR ---
SEBASTIÁN DRAWBRIDGE OPERATOR NOTES DR ACOSTA HAD A CONSULTATION STATED NO OBSTRUCTION NOTED. PT CAN START CLEAR LIQUID DIET AND ADVANCED TO GENERAL TOLERATED.
--- NOTE | 2020-06-15 10:55 | NUR ---
SEBASTIÁN MONTERROSO RN NOTES DR VALENTE KING SAW THE PT AND WOULD LIKE PT TO HAVE PARACENTESIS. STATED THAT HE IS GOING TO PUT ON ORDER.
--- NOTE | 2020-06-15 11:59 | NUR ---
Spoken to LOULOU Santana regarding US Guided Paracentesis, I explained that no radiologist is on-site and non would be able to come to do the procedure today. I left a msg on the order to follow-up for tomorrow (06/16).
[2020-06-15] MEDS: IV D5/ 0.9% NACL 1,000 ML IV PRN (13:23)
[2020-06-15] MEDS: HYDROCODONE/APAP 5/325MG TABLET PO PRN (16:02)
--- NOTE | 2020-06-15 18:22 | NUR ---
SEBASTIÁN/TELE CLOSING NOTES PT IS RESTING IN THE BED. ALERT AND ORIENTED X1. PT IS ON NC 2L. NO RESPIRATORY DISTRESS NOTED. PT IS ON SOFT DIET PER DR ACOSTA ORDER. PT TOLERATED WELL FROM CLEAR TO SOFT DIET.PT PULLED THE IV .ORDERED MIDLINE NURSE. MAYKEL CALLED FROM ONCOLOGY RADIOLOGY IN REGARDS TO PARACENTESIS PROB WOULD BE DONE WEDNESDAY. SAFETY MEASUREMENTS ARE IMPLEMENTED PER HOSPITAL POLICY. BED IS IN THE LOWEST POSITION AND RAILS ARE UP X2. CALL LIGHT WITHIN THE REACH. WILL ENDORSE TO NIGHTSHIFT NURSE.
--- NOTE | 2020-06-15 19:31 | NUR ---
RN OPENING NOTES RECEIVED PT ON BED AWAKE A/O X 1 AND CONFUSED, ON ROOM AIR SPO2 99% NO SIGN AND SYMPTOMS OF RESPIRATORY DISTRESS, PT IS EATING WELL AND CAN AMBULATE TO THE BATHROOM, IV WAS OUT AT THE MOMENT AM NURSE TRY TO INSERT BUT UNSUCCESSFUL MIDLINE INSERTION WAS ORDERED BUT MIDLINE NURSE WILL BE AVAILABLE TOMORROW AM, WILL TRY TO RE INSERT PERIPHERAL LINE TONIGHT, SAFETY MEASURE MAINTAINED BED ON LOWEST POSITION AND LOCKED CALL LIGHT WITHIN REACH WILL CONT TO MONITOR ,
[2020-06-15 20:00] VITALS: BP 114/71
[2020-06-16 04:00] VITALS: BP 115/66
--- NOTE | 2020-06-16 06:24 | NUR ---
RN NOTES CALLED MS BOONE CHIARA ) TO OBTAIN CONSENT FOR US GUIDED PARACENTESIS OF THE PT, PT SISTER GIVE OKAY FOR THE PROCEDURE, WITNESS MS BERTIN JAMIL ALSO RECEIVED THE CONSENT
--- NOTE | 2020-06-16 06:45 | NUR ---
RN CLOSING NOTES PT ON BED ASLEEP NO SIGN AND SYMPTOMS OF RESPIRATORY DISTRESS, SPO2 98% VIA ROOM AIR, NO SIGNIFICANT CHANGES ON CONDITION NOTED, CONSENT FOR ULTRASOUND GUIDED PARACENTESIS OBTAIN FROM SISTER VIA PHONE CALL ALL NEEDS ATTENDED,STILL FOR MIDLINE INSERTION,CHARGE NURSE AWARE, TRIED TO INSERT PERIPHERAL LINE BUT UNSUCCESSFUL, SAFETY MEASURE MAINTAINED BED ON LOWEST POSITION AND LOCKED SIDE RAILS UP X 2 CALL LIGHT WITHIN REACH WILL ENDORSE TO AM SHIFT NURSE
[2020-06-16] MEDS ORDERED: ALBUMIN 25% 12.5 GM/50 ML BOTTLE IV ONE (07:00)
[2020-06-16 07:48] LABS: BASOPHILS % (AUTO) 0.4 % (0.0-2.0); EOSINOPHILS % (AUTO) 3.6 % (0.0-6.0); HEMATOCRIT 45 % (39-51); HEMOGLOBIN 14.1 g/dL (13.5-17.5); LYMPHOCYTES # (AUTO) 0.8 /CMM (0.8-4.8); LYMPHOCYTES % (AUTO) 13.4 % (20.0-44.0); MEAN CORPUSCULAR HGB CONC 32 g/dl (31.0-36.0); MEAN CORPUSCULAR VOLUME 79 fL (80-96); MONOCYTES # (AUTO) 0.6 /CMM (0.1-1.30); MONOCYTES % (AUTO) 10.8 % (2.0-12.0); NEUTROPHILS # (AUTO) 4.2 /CMM (1.8-8.9); NEUTROPHILS % (AUTO) 71.8 % (43.0-81.0); PLATELET COUNT (AUTO) 173 /CMM (150-450); RED BLOOD CELL COUNT(AUTO) 5.64 MIL/uL (4.5-6.0); WHITE BLOOD COUNT (AUTO) 5.8 K/uL (4.3-11.0)
--- NOTE | 2020-06-16 07:59 | NUR ---
M/S RN NOTES US ABDOMEN GUIDED PARACENTESIS SCHEDULED 06/17, DR HUBER NOTIFIED. NEW ORDER OBTAINED TO RE-SCHEDULE ALBUMIN ORDERED TO 06/17 BEFORE PARACENTESIS. ORDER READ BACK NOTED AND CARRIED OUT. PHARMACY AWARE
[2020-06-16] MEDS ORDERED: ALBUMIN 25% 25 GM in PREMIX 1 EA IV ONE ×4 (08:00)
[2020-06-16 08:01] LABS: CALCIUM, SERUM 8.6 mg/dL (8.5-10.1); POTASSIUM 4.9 mmol/L (3.5-5.1)
--- NOTE | 2020-06-16 08:05 | NUR ---
M/S RN OPENING NOTES RECEIVED PT ON BED, A/OX1, MUMBLES SPEECH, HARD TO UNDERSTAND, ABLE TO FOLLOW COMMAND. RESPIRATION EVEN AND NON LABORED WITH NO ACUTE RESPIRATORY DISTRESS, ON O2 NEEDED, TOLERATING RA SATING 100%. ABD DISTENDED WITH PARACENTESIS SCHEDULED 06/17. SKIN WARM TO TOUCH AND DRY. NO S/S OF PAIN AND DISCOMFORT. PT WANDERER. PT HAS NO IV SITE PULLED OUT 06/15 WITH MULTIPLE ATTEMPTS, UNSUCCESSFUL. PENDING MIDLINE ORDER, NO IV MEDS PENDING. BED IN LOW LOCKED POSITION, SR X2 UP FOR SAFETY, CALL LIGHT W/IN REACH. WILL MONITOR CARE
[2020-06-16 08:39] VITALS: BP 130/72
--- NOTE | 2020-06-16 08:57 | NUR ---
M/S RN NOTES PT SEEN AND EVALUATED BY OPALRIZaria MANAGER TRUST. DC PLANING 06/17 AFTER PARACENTESIS
[2020-06-16] MEDS ORDERED: ALBUMIN 25% 25 GM in PREMIX 1 EA IV PRN (16:00)
--- NOTE | 2020-06-16 16:48 | NUR ---
M/S RN NOTES PROVIDED SKIN CARE, ORAL CARE, KEVIN BAIN. PT WANDERED, SAFETY PRECAUTION PROVIDED AT ALL TIMES.
[2020-06-16 17:05] VITALS: BP 124/82
--- NOTE | 2020-06-16 18:43 | NUR ---
M/S RN CLOSING NOTES PT A/OX1, WANDERER. NO ACUTE RESPIRATORY DISTRESS. NO BM TODAY, VOIDX2. DENIES PAIN AND DISCOMFORT. NO NEW OPEN SKIN BREAKDOWN. IV SITE AT RIGHT UPPER ARM MIDLINE, PATENT IN FLUSHING, NO S/SX OF INFILTRATION. PARACENTESIS SCHEDULE 06/17 WITH US GUIDED. CONSENT SIGNED ALREADY. ALL CONCERNS ATTENDED. ENDORSED CARE TO NEXT SHIFT
--- NOTE | 2020-06-16 19:29 | NUR ---
RN OPENING NOTES RECEIVED PT ON BED AWAKE A/O X 1 AND CONFUSED,ALWAYS LOITERING AROUND THE UNIT KEEP DIRECTING AND ORIENTING TO GO BACK TO HIS ROOM, ON ROOM AIR SPO2 99% NO SIGN AND SYMPTOMS OF RESPIRATORY DISTRESS, PT IS EATING WELL AND CAN AMBULATE TO THE BATHROOM, FIFI MIDLINE PATENT AND FLUSHED WRAP WITH KERLIX TO AVOID PATIENT FOR PULLING SAFETY MEASURE MAINTAINED BED ON LOWEST POSITION AND LOCKED CALL LIGHT WITHIN REACH WILL CONT TO MONITOR ,
[2020-06-16 20:00] VITALS: BP 113/86
--- NOTE | 2020-06-16 22:50 | NUR ---
RN NOTES PT KEEP ON LOITERING IN THE UNIT, KEEP DIRECTING TO STAY AT ROOM AND TAKE A REST BECAUSE SOME OT THE PT ON THE UNIT IS ALREADY RESTING BUT PT STILL KEEP ON GOING OUT IN THE ROOM, DR. BEATTY MADE AWARE WITH ORDER FOR AMBIEN 5MG HS PRN NOTED AND CARRIED OUT
[2020-06-16] MEDS ORDERED: ZOLPIDEM TARTRATE 5 MG TABLET PO PRN (23:00)
[2020-06-17 04:00] VITALS: BP 111/85
[2020-06-17 06:44] LABS: BASOPHILS % (AUTO) 0.6 % (0.0-2.0); EOSINOPHILS % (AUTO) 1.7 % (0.0-6.0); HEMATOCRIT 43 % (39-51); HEMOGLOBIN 13.8 g/dL (13.5-17.5); LYMPHOCYTES # (AUTO) 0.6 /CMM (0.8-4.8); LYMPHOCYTES % (AUTO) 10.3 % (20.0-44.0); MEAN CORPUSCULAR HGB CONC 32 g/dl (31.0-36.0); MEAN CORPUSCULAR VOLUME 78 fL (80-96); MONOCYTES # (AUTO) 0.7 /CMM (0.1-1.30); MONOCYTES % (AUTO) 11.5 % (2.0-12.0); NEUTROPHILS # (AUTO) 4.8 /CMM (1.8-8.9); NEUTROPHILS % (AUTO) 75.9 % (43.0-81.0); PLATELET COUNT (AUTO) 162 /CMM (150-450); RED BLOOD CELL COUNT(AUTO) 5.53 MIL/uL (4.5-6.0); WHITE BLOOD COUNT (AUTO) 6.3 K/uL (4.3-11.0)
--- NOTE | 2020-06-17 06:47 | NUR ---
RN CLOSING NOTES PT ON BED ASLEEP NO SIGN AND SYMPTOMS OF RESPIRATORY DISTRESS, SPO2 98% VIA ROOM AIR, NO SIGNIFICANT CHANGES ON CONDITION NOTED, CONSENT FOR ULTRASOUND GUIDED PARACENTESIS OBTAIN FROM SISTER VIA PHONE CALL ALL NEEDS ATTENDED,FOR D/C PLANNING ON SNF POST PARACENTESIS SAFETY MEASURE MAINTAINED BED ON LOWEST POSITION AND LOCKED SIDE RAILS UP X 2 CALL LIGHT WITHIN REACH WILL ENDORSE TO AM SHIFT NURSE
--- NOTE | 2020-06-17 07:34 | NUR ---
SEBASTIÁN RN OPENING NOTES PT IS RESTING IN BED. ALERT AND ORIENTED X1/ CONFUSED. PT IS ON RA WITH NO SIGN OF RESPIRATORY DISTRESS NOTED. PT IS SOFT DIET. FIFI MIDLINE IS RUNNING WELL, INTACT AND NO SIGN OF INFILTRATION NOTED PT IS GOING TO HAVE PARENTHESIS. SAFETY MEASUREMENTS ARE IMPLEMENTED PER HOSPITAL PROTOCOL. BED IS IN THE LOWEST POSITION. RAILS ARE UP X2. CALL LIGHT WITHIN REACH. WILL CONTINUE TO MONITOR
[2020-06-17] MEDS ORDERED: ALBUMIN 25% 25 GM in PREMIX 1 EA IV ONE (08:00)
[2020-06-17 08:16] VITALS: BP 116/68
[2020-06-17 08:17] LABS: CALCIUM, SERUM 8.8 mg/dL (8.5-10.1); POTASSIUM 4.9 mmol/L (3.5-5.1)
[2020-06-17] MEDS: HYDROCODONE/APAP 5/325MG TABLET PO PRN (13:02)
--- NOTE | 2020-06-17 14:36 | NUR ---
SEBASTIÁN RN NOTES DR JARAMILLO AND TECH WERE PRESENT FOR PARACENTESIS.[id number] VICTOR TOLD ME TO SEND TO CYTOLOGY THE SAMPLE OF FLUIDS.
--- NOTE | 2020-06-17 14:39 | NUR ---
SEBASTIÁN RN NOTES PT TOLERATED WELL PARACENTESIS. VS WNL.NO DISTRESS NOTED
[2020-06-17 16:56] VITALS: BP 117/75
--- NOTE | 2020-06-17 18:00 | NUR ---
SEBASTIÁN RN NOTES GAVE REPORT TO VINAY . PT VS WNL. PT IS IN STABLE CONDITION TO DC.
--- NOTE | 2020-06-17 18:15 | NUR ---
SEBASTIÁN RN NOTES AMBULANCE CAME TO PICK HIM UP . PT VS WNL. PT WAS DC. AND REPORT WAS GIVEN TO VINAY
== END 2020-06-17 18:15 | DRG 389 ==
LOC: ER 19:49 → TELE 22:14 → TELE2 23:08 → MEDSG1 06-14 17:11
PROVIDERS: ADMIT Internal Medicine; ATTEND Nurse Practitioner Acute Care
PROC: 05H933Z Insertion of Infusion Device into Right Brachial Vein, Percutaneous Approach (ICD-10-PCS; principal; 2020-06-16)
DX: K56.609 Unspecified intestinal obstruction, unspecified as to partial versus complete obstruction (principal); E87.1 Hypo-osmolality and hyponatremia; I50.32 Chronic diastolic (congestive) heart failure; R18.8 Other ascites; I13.0 Hypertensive heart and chronic kidney disease with heart failure and stage 1 through stage 4 chronic kidney disease, or unspecified chronic kidney disease; Z86.73 Personal history of transient ischemic attack (TIA), and cerebral infarction without residual deficits; I27.20 Pulmonary hypertension, unspecified; F20.9 Schizophrenia, unspecified; G40.909 Epilepsy, unspecified, not intractable, without status epilepticus; K43.9 Ventral hernia without obstruction or gangrene; E87.5 Hyperkalemia; E03.9 Hypothyroidism, unspecified; E86.0 Dehydration; K72.90 Hepatic failure, unspecified without coma; K74.60 Unspecified cirrhosis of liver; N18.9 Chronic kidney disease, unspecified; F32.9 Major depressive disorder, single episode, unspecified; R74.0 Nonspecific elevation of levels of transaminase and lactic acid dehydrogenase [LDH]
CPT/HCPCS: 36415; 74250-TC; 76700-TC; 76942-TC; 80048-TC; 80076-TC; 81000-TC; 82962-TC; 83605-TC; 83690-TC; 83735-TC; 84100-TC; 85025-TC; 85730-TC; 86850-TC; 87040-TC; 87081-TC; 87086-TC; A4216; A6403; G0378; J1815; J1940; J2543; J3490; J7030; J7040; J7042; J7050; J7060; P9047; Q9963; Q9967; U0003-CS

== ENCOUNTER 2020-07-11 18:24 | Inpatient (IN) | payer MEDICARE, OTHER ==
[~2020-07-11] VITALS: Ht 188 cm; Wt 86.2 kg
--- NOTE | 2020-07-11 18:30 | NUR ---
ER BED 4 PT CAME IN [facility] FROM SN[facility] WITH C/O OF AMS. PER REPORT, THIS IS PTS BASELINE MENTAL STATUS. VS CHECKED. EKG BEING DONE. AWAITING MD DOWLING.
--- NOTE | 2020-07-11 19:12 | NUR ---
XRAY AT BEDSIDE
--- NOTE | 2020-07-11 19:13 | NUR ---
REPORT RECEIVED FROM LOULOU GE FOR DILEEP
--- NOTE | 2020-07-11 19:15 | NUR ---
COVID SWAB COLLECTED AND SENT TO LAB
--- NOTE | 2020-07-11 19:35 | NUR ---
CALLED NURSING SUP FOR BED
[2020-07-11] MEDS ORDERED: LIDOCAINE 2% JEL UROJET 10 ML MM ONE (19:39)
[2020-07-11 19:44] LABS: LYMPHOCYTES # (AUTO) 0.7 /CMM (0.8-4.8); MONOCYTES # (AUTO) 0.5 /CMM (0.1-1.30)
[2020-07-11 19:47] LABS: BASOPHILS # (AUTO) 0.1 /CMM (0.0-0.2); BASOPHILS % (AUTO) 0.6 % (0.0-2.0); EOSINOPHILS % (AUTO) 0.4 % (0.0-6.0); HEMATOCRIT 56 % (39-51); HEMOGLOBIN 17.8 g/dL (13.5-17.5); LYMPHOCYTES % (AUTO) 7.8 % (20.0-44.0); MEAN CORPUSCULAR HGB CONC 32 g/dl (31.0-36.0); MEAN CORPUSCULAR VOLUME 81 fL (80-96); MONOCYTES % (AUTO) 5.7 % (2.0-12.0); NEUTROPHILS # (AUTO) 7.9 /CMM (1.8-8.9); NEUTROPHILS % (AUTO) 85.5 % (43.0-81.0); PLATELET COUNT (AUTO) 164 /CMM (150-450); RED BLOOD CELL COUNT(AUTO) 6.98 MIL/uL (4.5-6.0); WHITE BLOOD COUNT (AUTO) 9.2 K/uL (4.3-11.0)
--- NOTE | 2020-07-11 19:51 | NUR ---
URINE COLLECTED AND SENT TO LAB
[2020-07-11] MEDS ORDERED: ZOLP5TAB8 PO (19:52)
[2020-07-11 19:54] LABS: CALCIUM, SERUM 9.7 mg/dL (8.5-10.1); CARBON DIOXIDE 24 mmol/L (21-32); CHLORIDE 102 mmol/L (98-107); CREATININE 1.3 mg/dL (0.6-1.3); GLUCOSE 89 mg/dL (74-106); POTASSIUM 6.1 mmol/L (3.5-5.1); SODIUM SERUM 133 mmol/L (136-145); UREA NITROGEN, BLOOD 40 mg/dL (7-18)
[2020-07-11 19:59] LABS: APPEARANCE,URINE Clear (CLEAR); BILIRUBIN,URINE SMALL (NEGATIVE); BLOOD, URINE Negative Ery/uL (NEGATIVE); COLOR,URINE Yellow (YELLOW); KETONES,URINE Negative (NEGATIVE); LEUKOCYTE ESTERASE ,URINE Negative (NEGATIVE); NITRITE, URINE Negative (NEGATIVE); PROTEIN,URINE Negative (NEGATIVE); UGLUCOSE Negative (NEGATIVE); UROBILINOGEN,URINE 0.2 EU/dL (0.2)
[2020-07-11 20:00] LABS: ALANINE AMINOTRANSFERASE 40 U/L (12-78); ALBUMIN 3.4 g/dL (3.4-5.0); ALCOHOL, BLOOD < 3 mg/dL (0-0); ALKALINE PHOSPHATASE 543 U/L (46-116); ASPARTATE AMINOTRANSFERASE 30 U/L (15-37); BILIRUBIN,DIRECT 1.1 mg/dL (0.0-0.2); BILIRUBIN,TOTAL 2.1 mg/dL (0.2-1.0); TOTAL PROTEIN, SERUM 9.3 g/dL (6.4-8.2)
--- NOTE | 2020-07-11 20:02 | NUR ---
M/S 205
[2020-07-11 20:12] LABS: SERUM AMMONIA 24 umol/L (11-32)
[2020-07-11] MEDS ORDERED: SODIUM POLYSTYRENE SULFONATE 15 G/60 ML BOTTLE ONE ×2 (20:20→20:21)
[2020-07-11] MEDS ORDERED: DEXTROSE 50%-WATER 50 ML DISP.SYRIN ONE (20:21)
[2020-07-11] MEDS ORDERED: SODIUM BICARBONATE SYR 50 MEQ/50 ML DISP.SYRIN ONE (20:21)
[2020-07-11] MEDS ORDERED: INSULIN REGULAR, HUMAN 100 UNIT/ML 10 ML VIAL ONE (20:21)
[2020-07-11] MEDS ORDERED: INSULIN REGULAR, HUMAN 100 UNIT/ML 10 ML VIAL IV ONE (20:30)
[2020-07-11] MEDS ORDERED: SODIUM BICARBONATE SYR 50 MEQ/50 ML DISP.SYRIN IV ONE (20:30)
[2020-07-11] MEDS ORDERED: SODIUM POLYSTYRENE SULFONATE 15 G/60 ML BOTTLE PO ONE (20:30)
[2020-07-11] MEDS ORDERED: DEXTROSE 50%-WATER 50 ML DISP.SYRIN IV ONE (20:30)
--- NOTE | 2020-07-11 20:38 | NUR ---
DR. ONTIVEROS SPEAKING WITH DR. BEATTY
--- NOTE | 2020-07-11 20:50 | NUR ---
Ade pearce in [facility] - 07/11/20 at 2103 by EDUARD URINE COLLECTED AND SENT TO LAB
[2020-07-11 21:21] LABS: LYMPHOCYTES % (MANUAL) 17 % (16-48); MONOCYTES % (MANUAL) 3 % (0-11.0); NEUTROPHILS % (MANUAL) 80 (42-76)
[2020-07-11] MEDS ORDERED: ACETAMINOPHEN 325 MG TABLET PO PRN ×2 (21:30)
[2020-07-11] MEDS ORDERED: MAG HYDROX/AL HYDROX/SIMETH 30 ML UDC PO PRN (21:30)
[2020-07-11] MEDS ORDERED: Z GUARD REMEDY 2 OZ OINT TP PRN (21:30)
[2020-07-11] MEDS ORDERED: BISACODYL SUPP (10 MG) 10 MG/SUPP.RECT SUPP.RECT RC PRN (21:30)
[2020-07-11] MEDS ORDERED: MAGNESIUM HYDROXIDE 30 ML UDC PO PRN ×2 (21:30)
[2020-07-11] MEDS ORDERED: ONDANSETRON HCL/PF 4 MG/2 ML VIAL IVP PRN (21:30)
[2020-07-11 21:45] VITALS: BP_SYST 100; BP_SYST 90; BP_DIAS 70
--- NOTE | 2020-07-11 21:45 | NUR ---
TELE/RN ADMITTING NOTES: REPORT GIVEN BY ER NURSE, RHETT. PT ARRIVED TO THE UNIT UNDER ACLS PROTOCOL AT 2145 VIA GURNEY, A/OX1, VERBALLY RESPONSIVE AND PT HAS A HX OF CVA BUT ABLE TO MAKE NEEDS KNOWN WITH USING SIMPLE WORDS/ PHRASES. UNABLE TO ANSWER ADMISSION QUESTIONS. NO SOB NOTED. NO S/S OF RESPIRATORY DISTRESS. NO C/O PAIN AT THIS TIME. CATHODE MAKER ON, WITH READING OF NSR, HR 86. ABLE TO AMBULATE WITH ASSISTANCE FROM GURNEY TO THE BED WITH UNSTEADY GAIT. SATURATING ON 90% ON ROOM AIR, PLACED ON 2L OF OXYGEN VIA NC. SATURATING AT 95%. INITIAL VS RECORDED, WNL AND STABLE. BREATHING EVEN AND UNLABORED. ORIENTED TO UNIT AND STAFF. IV ON THE LEFT HAND #20G, AND LEFT WRIST #22G INTACT AND PATENT, SL. SKIN ASSESSMENT DONE, NO OPEN WOUNDS NOTED. SKIN INTACT AND WARM TO TOUCH. HAS AN UMBILICAL HERNIA, AND BILATERAL LOWER EXTREMITY DRY SKIN. BELONGINGS LIST CHECKED AND PLACED IN THE CHART. FALL PRECAUTIONS ON. SAFETY MEASURES ARE INITIATED. BED IN LOW, LOCKED POSITION WITH SR X2. BED ALARM ON, CALL LIGHT WITHIN REACH. WILL CONTINUE TO MONITOR ACCORDINGLY.
--- NOTE | 2020-07-11 21:53 | NUR ---
PT TRANSFERRED TO ROOM VIA ACLS PROTOCOL
[2020-07-11] MEDS: LATANOPROST EYE DROP 0.005% 2.5 ML BOTTLE EACHEYE SCH (22:56)
[2020-07-12] VITALS (7 sets, daily range): BP systolic 100–114; BP diastolic 66–89
--- NOTE | 2020-07-12 06:20 | NUR ---
TELE/RN CLOSING NOTES: PT REMAINS STABLE. A/OX1, VERBALLY RESPONSIVE. NO SOB NOTED. NO S/S OF RESPIRATORY DISTRESS. NO C/O PAIN AT THIS TIME. UPKEEP WORKER ON, WITH READING OF NSR, HR 88. ON 2L OF OXYGEN VIA NC. SATURATING AT 95%. BREATHING EVEN AND UNLABORED. IV ON THE LEFT HAND #20G, AND LEFT WRIST #22G INTACT AND PATENT, SL. ALL DUE MEDS GIVEN ORDERED. ALL NURSING NEEDS MET AND RENDERED. KEPT WARM AND COMFORTABLE IN BED THROUGHOUT OUT THE SHIFT. FALL PRECAUTIONS ON. SAFETY MEASURES ARE INITIATED. BED IN LOW, LOCKED POSITION WITH SR X2. BED ALARM ON, CALL LIGHT WITHIN REACH. WILL ENDORSE TO DAY SHIFT FOR DILEEP.
[2020-07-12 07:19] LABS: BASOPHILS % (AUTO) 0.4 % (0.0-2.0); EOSINOPHILS % (AUTO) 0.8 % (0.0-6.0); HEMATOCRIT 51 % (39-51); HEMOGLOBIN 16.6 g/dL (13.5-17.5); LYMPHOCYTES # (AUTO) 0.7 /CMM (0.8-4.8); LYMPHOCYTES % (AUTO) 8.2 % (20.0-44.0); MEAN CORPUSCULAR HGB CONC 32 g/dl (31.0-36.0); MEAN CORPUSCULAR VOLUME 78 fL (80-96); MONOCYTES # (AUTO) 0.6 /CMM (0.1-1.30); MONOCYTES % (AUTO) 7.6 % (2.0-12.0); PLATELET COUNT (AUTO) 178 /CMM (150-450); RED BLOOD CELL COUNT(AUTO) 6.55 MIL/uL (4.5-6.0); WHITE BLOOD COUNT (AUTO) 8.4 K/uL (4.3-11.0)
[2020-07-12 07:49] LABS: CALCIUM, SERUM 9.3 mg/dL (8.5-10.1); CREATININE 1.3 mg/dL (0.6-1.3); MAGNESIUM 1.9 mg/dL (1.8-2.4); PHOSPHORUS 3.9 mg/dL (2.5-4.9); POTASSIUM 5.3 mmol/L (3.5-5.1)
[2020-07-12] MEDS ORDERED: ACETAMINOPHEN 325 MG TABLET PO PRN (07:54)
--- NOTE | 2020-07-12 08:00 | NUR ---
tele custom wood stair builder: initial assessment received pt in bed awake, alert to name only with confusion and disorientation to time, place, and situation. reality orientation provided prn. will continue to monitor.
[2020-07-12] MEDS: LEVOTHYROXINE SODIUM 50 MCG TABLET PO SCH (08:03)
[2020-07-12] MEDS: LEVETIRACETAM (250 MG) 250 MG TABLET PO SCH ×2 (08:03→16:18)
[2020-07-12] MEDS: DOCUSATE SODIUM 100 MG CAPSULE PO SCH ×2 (08:03→16:18)
[2020-07-12] MEDS: LACTULOSE 10 G/15 ML UDC (PYXIS) PO SCH ×4 (08:03→21:44)
[2020-07-12] MEDS: MULTIVITAMINS,THERAGRAN 1 UDTAB TABLET PO SCH (08:03)
--- NOTE | 2020-07-12 10:00 | NUR ---
tele airfield operations specialist: cardio consult seen by dr. underwood with orders. orders acknowledged.
[2020-07-12] MEDS: FUROSEMIDE 40 MG/4 ML VIAL IV SCH ×2 (10:02→14:38)
--- NOTE | 2020-07-12 10:30 | NUR ---
tele audograph operator: notes pt verbalizing wanting to go home. reality orientation provided prn. will continue to monitor.
[2020-07-12 11:59] LABS: ALBUMIN 4.2 g/dL (3.4-5.0); BILIRUBIN,DIRECT 1.1 mg/dL (0.0-0.2); BILIRUBIN,TOTAL 2.1 mg/dL (0.2-1.0); TOTAL PROTEIN, SERUM 10.5 g/dL (6.4-8.2)
--- NOTE | 2020-07-12 12:05 | NUR ---
tele medical terminologist: notes f/u made to anuj formerly [facility] re: flu vaccine immunization, spoke to rajwinder (nurse) and informed me that it was given in october 09, 2019. chart updated.
--- NOTE | 2020-07-12 13:00 | NUR ---
tele computer education teacher: notes per covering nurse, pt pulled his iv on his left hand. pt still verbalizing wanting to go home. reality orientation provided prn. will continue to monitor.
--- NOTE | 2020-07-12 14:10 | NUR ---
tele html web developer: neuro seen by dr. sawant via telecom and spoke to pt.
--- NOTE | 2020-07-12 16:00 | NUR ---
tele shirt ironer supervisor: notes pt still standing by the door and still verbalizing i want to go home repeatedly. reality orientation provided prn. will continue to monitor.
--- NOTE | 2020-07-12 18:00 | NUR ---
m/s car checker: notes after dinner, pt stood up in the front door and saying i want to go home. reality orientation provided prn. no distress noted. will continue to monitor.
--- NOTE | 2020-07-12 19:00 | NUR ---
tele golf ball inspector: notes report given to rea burton) for continuity of care.
--- NOTE | 2020-07-12 19:29 | NUR ---
TELE/RN OPENING NOTES: RECEIVED PT. A/OX1, VERBALLY RESPONSIVE PACING AROUND [facility] ROOM WANTING TO GO HOME. NO SOB NOTED. NO S/S OF RESPIRATORY DISTRESS. NO C/O PAIN AT THIS TIME. QUALITY CONTROL DIRECTOR ON, WITH READING OF NSR, HR 90. ABLE TO AMBULATE WITH STEADY GAIT. ON RA SATURATING AT WELL 95%. BREATHING EVEN AND UNLABORED. IV ON THE LEFT WRIST #22G. SAFETY MEASURES ARE INITIATED. BED IN LOW, LOCKED POSITION WITH SR X2. BED ALARM ON, CALL LIGHT WITHIN REACH. WILL CONTINUE TO MONITOR ACCORDINGLY.
[2020-07-12] MEDS: LATANOPROST EYE DROP 0.005% 2.5 ML BOTTLE EACHEYE SCH (21:45)
[2020-07-13] VITALS: BP 96/62
--- NOTE | 2020-07-13 00:24 | NUR ---
TELE/RN NOTES: INSERTED A NEW IV ON THE LEFT AC #22G. WRAPPED WITH KERLIX. WILL CONTINUE TO MONITOR.
--- NOTE | 2020-07-13 02:06 | NUR ---
TELE/RN NOTES: PT PULLED OUT THE NEW IV ON THE LEFT AC #22G. REFUSES TO HAVE AN IV INSERTED. PT STATES HE WANTS TO GO HOME. WILL CONTINUE TO MONITOR.
[2020-07-13 04:00] VITALS: BP_SYST 102; BP_SYST 132; BP_DIAS 53
--- NOTE | 2020-07-13 06:49 | NUR ---
TELE/RN CLOSING NOTES: PT REMAINS STABLE. A/OX1, VERBALLY RESPONSIVE. NO SOB NOTED. NO S/S OF RESPIRATORY DISTRESS. NO C/O PAIN AT THIS TIME. BELT FIXER ON, WITH READING OF NSR, HR 86. ON RA SATURATING AT 98%. BREATHING EVEN AND UNLABORED. IV ON THE LEFT WRIST #22G INTACT AND PATENT, SL. ALL DUE MEDS GIVEN ORDERED. ALL NURSING NEEDS MET AND RENDERED. KEPT WARM AND COMFORTABLE IN BED THROUGHOUT OUT THE SHIFT. FALL PRECAUTIONS ON. SAFETY MEASURES ARE INITIATED. BED IN LOW, LOCKED POSITION WITH SR X2. BED ALARM ON, CALL LIGHT WITHIN REACH. WILL ENDORSE TO DAY SHIFT FOR DILEEP.
[2020-07-13 06:55] LABS: BASOPHILS # (AUTO) 0.1 /CMM (0.0-0.2); BASOPHILS % (AUTO) 0.8 % (0.0-2.0); EOSINOPHILS % (AUTO) 3.2 % (0.0-6.0); HEMATOCRIT 55 % (39-51); HEMOGLOBIN 17.4 g/dL (13.5-17.5); LYMPHOCYTES # (AUTO) 0.3 /CMM (0.8-4.8); LYMPHOCYTES % (AUTO) 4.5 % (20.0-44.0); MEAN CORPUSCULAR HGB CONC 32 g/dl (31.0-36.0); MEAN CORPUSCULAR VOLUME 79 fL (80-96); MONOCYTES # (AUTO) 1.3 /CMM (0.1-1.30); MONOCYTES % (AUTO) 19.6 % (2.0-12.0); NEUTROPHILS # (AUTO) 4.9 /CMM (1.8-8.9); NEUTROPHILS % (AUTO) 71.9 % (43.0-81.0); PLATELET COUNT (AUTO) 150 /CMM (150-450); RED BLOOD CELL COUNT(AUTO) 6.93 MIL/uL (4.5-6.0); WHITE BLOOD COUNT (AUTO) 6.8 K/uL (4.3-11.0)
[2020-07-13 07:39] LABS: ALANINE AMINOTRANSFERASE 39 U/L (12-78); ALBUMIN 3.6 g/dL (3.4-5.0); ALKALINE PHOSPHATASE 512 U/L (46-116); ASPARTATE AMINOTRANSFERASE 29 U/L (15-37); BILIRUBIN,TOTAL 1.8 mg/dL (0.2-1.0); CALCIUM, SERUM 9.3 mg/dL (8.5-10.1); CARBON DIOXIDE 15 mmol/L (21-32); CHLORIDE 96 mmol/L (98-107); CREATININE 1.5 mg/dL (0.6-1.3); GLUCOSE 78 mg/dL (74-106); MAGNESIUM 2.2 mg/dL (1.8-2.4); PHOSPHORUS 3.6 mg/dL (2.5-4.9); POTASSIUM 5.4 mmol/L (3.5-5.1); SODIUM SERUM 130 mmol/L (136-145); TOTAL PROTEIN, SERUM 9.3 g/dL (6.4-8.2); UREA NITROGEN, BLOOD 41 mg/dL (7-18)
[2020-07-13] MEDS: LEVOTHYROXINE SODIUM 50 MCG TABLET PO SCH (07:46)
[2020-07-13 08:00] VITALS: BP 120/77
--- NOTE | 2020-07-13 08:00 | NUR ---
RN Opening note Received patient in bed, AO x 1, able to responds all stimuli, does no appears pain or discomfort. Respiratory even and unlabored in room air, no SOB or respiratory distress. Skin is warm to touch, keep clean/dry, intact IV site on left wrist with HL. Keep bed locked with lowest position and elevated HOB for ensure airway and aspiration precaution. Call light within reach, will continue to monitor.
[2020-07-13] MEDS: LEVETIRACETAM (250 MG) 250 MG TABLET PO SCH ×2 (08:36→17:38)
[2020-07-13] MEDS: LACTULOSE 10 G/15 ML UDC (PYXIS) PO SCH ×4 (08:36→21:00)
[2020-07-13] MEDS: DOCUSATE SODIUM 100 MG CAPSULE PO SCH ×2 (08:36→17:38)
[2020-07-13] MEDS: MULTIVITAMINS,THERAGRAN 1 UDTAB TABLET PO SCH (08:37)
[2020-07-13] MEDS ORDERED: SODIUM POLYSTYRENE SULFONATE 15 G/60 ML BOTTLE PO ONE (09:00)
--- NOTE | 2020-07-13 11:35 | NUR ---
Patient has no VTE prophylaxis order, made aware, also patient has not been done Hemodialysis last 5days according patient, informed Dr. lauren regarding above inclde outpatient HD /Nicholas Durand at [facility].
[2020-07-13 13:09] LABS: LYMPHOCYTES % (MANUAL) 13 % (16-48); MONOCYTES % (MANUAL) 8 % (0-11.0); NEUTROPHILS % (MANUAL) 79 (42-76)
[2020-07-13 16:00] VITALS: BP 103/75
--- NOTE | 2020-07-13 17:22 | NUR ---
Patient noticed IV infiltrate on right, attempted x 3 but hard stick IV line, made aware. Patient has no IV med.
--- NOTE | 2020-07-13 18:57 | NUR ---
RN closing note Patient in room, remains AO x 1, denies nausea or discomfort, Respiratory even and unlabored on room air O2sat 98%, no sob or distress observed. Skin is warm to touch, keep clean/dry. Keep locked bed with lowest position and elevated HOB for ensure airway. Call light within reach, will endorse might shift.
--- NOTE | 2020-07-13 19:50 | NUR ---
RADIO DIRECTOR OPENING NOTES RECEIVED PATIENT AWAKE, A/OX1, VERBALLY RESPONSIVE; PATIENT STANDING NEAR DOOR; REPORTED HE WANTS TO GO HOME, HAS BELONGINGS PACKED IN DUFFLE BAG; PATIENT HAS NO IV ACCESS, PATIENT REFUSING RE-INSERTION OF IV ACCESS; KEEPS TAKING IV OUT; MD IS AWARE; TELE MONITOR ATTACHED, READS SINUS RHYTHM; PATIENT NEEDS FREQUENT ORIENTATION; ISOLATION PRECAUTIONS MAINTAINED; SAFETY PRECAUTIONS IMPLEMENTED; WILL CONT TO MONITOR
[2020-07-13 20:00] VITALS: BP 103/67
[2020-07-13] MEDS: LATANOPROST EYE DROP 0.005% 2.5 ML BOTTLE EACHEYE SCH (21:20)
--- NOTE | 2020-07-13 21:20 | NUR ---
HARNESS AND BAG INSPECTOR NOTES PATIENT REFUSING TO FOLLOW COMMANDS; PATIENT CURRENTLY SITTING IN BED, REFUSING TO TAKE SCHEDULED MEDICATIONS; PATIENT A/OX1, CONFUSED; NEEDS FREQUENT RE-ORIENTATION; WILL CONT TO MONITOR
--- NOTE | 2020-07-13 22:24 | NUR ---
SENIOR MOBILE APPLICATION DEVELOPER NOTES PATIENT CONTINUOUSLY PACKING BELONGINGS INTO HIS DUFFLE BAG AND VERBALIZING HE WOULD LIKE TO GO HOME; PATIENT RE-ORIENTED, PATIENT CONFUSED AND UNCOOPERATIVE; WILL CONT TO MONITOR
[2020-07-14] VITALS: BP 107/62
--- NOTE | 2020-07-14 04:37 | NUR ---
RIVET DRIVER NOTES PATIENT REFUSING 0400 VITALS TO BE DONE; PATIENT A/OX1, CONFUSED; NEEDS CONSTANT RE-ORIENTATION; PREVIOUS VITALS 107/62 HR: 98 RR:20, TEMP:97.6, SP02: 94% ON ROOM AIR; PATIENT STABLE; BREATHING EVEN AND UNLABORED; NO DISTRESS NOTED; PATIENT SOMETIMES NON-COMPLIANT; PATIENT CONTINUES VERBALIZING HE WANTS TO GO HOME; WILL CONT TO MONITOR
--- NOTE | 2020-07-14 06:49 | NUR ---
ENGINEERING AND SCIENTIFIC PROGRAMMER CLOSING NOTES PATIENT RESTING IN BED COMFORTABLY; A/OX1, CONFUSED; NEEDS FREQUENT RE-ORIENTATION; TELE MONITO READS SINUS RHYTHM 76BPM - SINUS TACHY, 103BPM; PATIENT AMBULATORY WITH STEADY GAIT; PATIENT HAS NO IV ACCESS, CONTINUOUSLY REFUSING RE-INSERTION OF IV SITE; MD AWARE; PATIENT HAS NO IVF; PATIENT HAS BOUTS OF NON-COMPLIANCE; ALL NEEDS RENDERED; ISOLATION PRECAUTIONS MAINTAINED; SAFETY PRECAUTIONS IMPLEMENTED THROUGHOUT SHIFT; BED LOCKED IN LOW POSITION; SIDE RAILSX3, CALL LIGHT WITHIN REACH; WILL ENDORSE DILEEP TO ONCOMING SHIFT
--- NOTE | 2020-07-14 07:30 | NUR ---
TELE/RN OPENING NOTES Received patient sitting on chair, A/O x 1, needs frequent reorientation. Denies any pain and discomfort at this time. Breathing even and non-labored on RA. No respiratory or cardiac distress noted. On tele monitor, reading SR 92. No IV access noted, patient refusing to have one inserted, MD aware. Will try again later, educated its risks and benefits. Sensation from all peripheral extremities intact. Instructed patient to use call light when in need of assistance. Will continue current medical management. Covid precautions maintained.
[2020-07-14 07:41] LABS: BASOPHILS % (AUTO) 0.5 % (0.0-2.0); EOSINOPHILS % (AUTO) 4.3 % (0.0-6.0); HEMATOCRIT 49 % (39-51); HEMOGLOBIN 15.9 g/dL (13.5-17.5); LYMPHOCYTES # (AUTO) 0.8 /CMM (0.8-4.8); MEAN CORPUSCULAR HGB CONC 33 g/dl (31.0-36.0); MEAN CORPUSCULAR VOLUME 78 fL (80-96); MONOCYTES # (AUTO) 0.6 /CMM (0.1-1.30); MONOCYTES % (AUTO) 11.9 % (2.0-12.0); NEUTROPHILS # (AUTO) 3.7 /CMM (1.8-8.9); NEUTROPHILS % (AUTO) 68.3 % (43.0-81.0); PLATELET COUNT (AUTO) 161 /CMM (150-450); RED BLOOD CELL COUNT(AUTO) 6.24 MIL/uL (4.5-6.0); WHITE BLOOD COUNT (AUTO) 5.5 K/uL (4.3-11.0)
[2020-07-14 08:00] VITALS: BP 102/70
[2020-07-14] MEDS: LEVOTHYROXINE SODIUM 50 MCG TABLET PO SCH (08:20)
[2020-07-14] MEDS: DOCUSATE SODIUM 100 MG CAPSULE PO SCH ×2 (08:20→16:13)
[2020-07-14] MEDS: LEVETIRACETAM (250 MG) 250 MG TABLET PO SCH ×2 (08:21→16:13)
[2020-07-14] MEDS: MULTIVITAMINS,THERAGRAN 1 UDTAB TABLET PO SCH (08:21)
--- NOTE | 2020-07-14 08:30 | NUR ---
TELE/RN NOTE Called pharmacy to refill lactulose in [place]. cytotechnologist states they will bring it up
[2020-07-14 09:00] LABS: BILIRUBIN,TOTAL 1.9 mg/dL (0.2-1.0); CALCIUM, SERUM 9.1 mg/dL (8.5-10.1); CREATININE 1.3 mg/dL (0.6-1.3); MAGNESIUM 2.1 mg/dL (1.8-2.4); PHOSPHORUS 3.1 mg/dL (2.5-4.9); POTASSIUM 4.1 mmol/L (3.5-5.1); TOTAL PROTEIN, SERUM 10.3 g/dL (6.4-8.2)
[2020-07-14] MEDS: LACTULOSE 10 G/15 ML UDC (PYXIS) PO SCH ×5 (09:00→21:29)
[2020-07-14] MEDS ORDERED: ARIPIPRAZOLE 5 MG TABLET PO SCH (09:00)
--- NOTE | 2020-07-14 09:30 | NUR ---
TELE/RN NOTE Followed up pharmacy to refill lactulose since pt has scheduled dose at 0900. States they will bring it up soon.
[2020-07-14 09:54] LABS: APPEARANCE,URINE CLEAR (CLEAR); BILIRUBIN,URINE NEGATIVE (NEGATIVE); BLOOD, URINE NEGATIVE Ery/uL (NEGATIVE); COLOR,URINE YELLOW (YELLOW); KETONES,URINE NEGATIVE (NEGATIVE); LEUKOCYTE ESTERASE ,URINE NEGATIVE (NEGATIVE); NITRITE, URINE NEGATIVE (NEGATIVE); PH,URINE 6.5 (5.0-8.0); PROTEIN,URINE NEGATIVE (NEGATIVE); UGLUCOSE NEGATIVE (NEGATIVE); UROBILINOGEN,URINE 0.2 EU/dL (0.2)
[2020-07-14 10:38] LABS: EOSINOPHIL,URINE None Seen
[2020-07-14 12:52] LABS: OSMOLALITY,URINE 20 mOS/kg (340-1090)
[2020-07-14 12:53] LABS: CREATININE, URINE < 13.0 MG/DL (30.0-125.0); URINE TOTAL PROTEIN 1.2 mg/dL (0-11.9)
[2020-07-14 16:00] VITALS: BP 119/75
--- NOTE | 2020-07-14 18:24 | NUR ---
TELE/RN CLOSING NOTES Patient sitting on bed, A&O x 2, confused and reoriented throughout shift. Denies any pain and discomfort at this time. Breathing even and non-labored on RA. No respiratory or cardiac distress noted. On tele monitor, reading SR 80. No IV access noted, patient refusing to have one inserted, MD aware. Sensation from all peripheral extremities intact. Fall precautions maintained. Will endorse to hand shoes sewer nurse.
--- NOTE | 2020-07-14 18:55 | NUR ---
TELE/RN NOTE Patient getting agitated trying to break the plastic door and trying to walk around with unsteady gait, looking lethargic and drowsy. Keeps stating "I want to go home, I want to go home." Tried to redirect, reorient, and de-escalate patient but patient consistently attempted to punch and rip the door off. Patient pulled out his tele leads and tele box. Placed soft wrist bilateral restraints, notified MARIA C Palafox. In addition to restraints, Javy REGISTER OF DEEDS orders to start Abilify 15 mg today, meaning we had to give 5 more miligrams since 10 mg was given this morning. Orders carried out. Will continue to monitor.
[2020-07-14] MEDS ORDERED: ARIPIPRAZOLE 5 MG TABLET PO ONE (19:00)
--- NOTE | 2020-07-14 19:30 | NUR ---
TELE/RN OPENING NOTES RECEIVED PATIENT WALKING IN WALK. PATIENT IS ALERT AND ORIENTED X 1. PATIENT REMOVED SOFT WRIST RESTRAINTS BILATERAL. PATIENT REMOVED TELE BOX AND REMOVED IV ACCESS. PATIENT SHOWS NO SIGNS OF SOB OR RESPIRATORY DISTRESS. BREATHING IS EVEN AND UNLABORED. PATIENT REORIENTED. PATIENT EXPLAINED RISK AND BENEFITS OF RECEIVING CARE. SAFETY MEASURES ARE IN PLACE, BED IS LOCKED AND PLACED IN THE LOW POSITION, SIDE RAILS UP X 3. CALL LIGHT IS WITHIN REACH. WILL CONTINUE TO MONITOR.
[2020-07-14 20:00] VITALS: BP 118/78
[2020-07-14 20:24] VITALS: BP 118/78
[2020-07-14] MEDS: LATANOPROST EYE DROP 0.005% 2.5 ML BOTTLE EACHEYE SCH (21:29)
--- NOTE | 2020-07-14 22:00 | NUR ---
TELE/RN NOTES PATIENT REMOVED BILATERAL SOFT WRIST RESTRAINTS ON HIS OWN. PATIENT WOULD NOT LET NURSE PUT THEM BACK ON. PATIENT REFUSED TO HAVE PICTURE TAKEN. REORIENTED PATIENT. PATIENT IN NO DISTRESS. WILL CONTINUE TO MONITOR.
[2020-07-15 00:29] VITALS: BP 119/72
[2020-07-15 04:00] VITALS: BP 130/87
--- NOTE | 2020-07-15 06:20 | NUR ---
TELE/RN CLOSING NOTES PATIENT IN BED RESTING. PATIENT IS ALERT AND ORIENTED X 1. PATIENT HAS TELE BOX IN PLACE READING SR 85. PATIENT SHOWS NO SIGNS OF SOB OR RESPIRATORY DISTRESS. BREATHING IS EVEN AND UNLABORED. PATIENT REORIENTED WHEN CONFUSED. ALL PATIENTS NEEDS HAVE BEEN MET DURING SHIFT. SAFETY MEASURES ARE IN PLACE, BED IS LOCKED AND PLACED IN THE LOW POSITION, SIDE RAILS UP X 3. CALL LIGHT IS WITHIN REACH. WILL ENDORSE CARE TO DAY SHIFT.
--- NOTE | 2020-07-15 07:30 | NUR ---
RN OPENING NOTES PATIENT IN ROOM SITTING ON THE CHAIR. A/OX1, FREQUENT ORIENTATION PROVIDED. KEEPS SAYING "I WANT TO GO HOME". NOT IN ANY FORM OF DISTRESS. SO SOB. DENIED PAIN OR DISCOMFORT AT THIS TIME. NO IV ACCESS NOTED, MD AWARE. SAFETYMEASURES INITIATED. BED IN LOW/LOCKED SPOTIION. SIDERAILS UPX2,CALL LIGHT IN REACH WILL CONT TO MONIOTR
[2020-07-15 08:00] VITALS: BP 105/61
[2020-07-15 08:01] LABS: CALCIUM, SERUM 8.4 mg/dL (8.5-10.1); POTASSIUM 4.9 mmol/L (3.5-5.1)
[2020-07-15] MEDS ORDERED: ARIPIPRAZOLE 5 MG TABLET PO SCH (09:00)
[2020-07-15] MEDS: LEVETIRACETAM (250 MG) 250 MG TABLET PO SCH (09:28)
[2020-07-15] MEDS: MULTIVITAMINS,THERAGRAN 1 UDTAB TABLET PO SCH (09:28)
[2020-07-15] MEDS: DOCUSATE SODIUM 100 MG CAPSULE PO SCH (09:28)
[2020-07-15] MEDS: LACTULOSE 10 G/15 ML UDC (PYXIS) PO SCH ×2 (09:29→14:16)
[2020-07-15] MEDS: LEVOTHYROXINE SODIUM 50 MCG TABLET PO SCH (09:30)
[2020-07-15 12:00] VITALS: BP 120/86
--- NOTE | 2020-07-15 12:19 | NUR ---
called and gave report to Maddy Firewall Security Engineer from [facility]. dc instructions given, verbalized understanding.
--- NOTE | 2020-07-15 15:11 | NUR ---
discharged patient in stable condition picked up by brazing furnace feeder. dc instructions given to snf. handed the dc paperworks to brazing furnace feeder. All belongings returned to patient. no iv access noted. name band removed. refused skin photos.
== END 2020-07-15 15:11 | DRG 640 ==
LOC: ER 18:32 → TELE2 20:20
PROVIDERS: ADMIT Internal Medicine; ATTEND Nurse Practitioner Acute Care
DX: E87.1 Hypo-osmolality and hyponatremia (principal); N17.0 Acute kidney failure with tubular necrosis; G93.41 Metabolic encephalopathy; I50.32 Chronic diastolic (congestive) heart failure; R18.8 Other ascites; I13.0 Hypertensive heart and chronic kidney disease with heart failure and stage 1 through stage 4 chronic kidney disease, or unspecified chronic kidney disease; E03.9 Hypothyroidism, unspecified; E87.5 Hyperkalemia; G40.909 Epilepsy, unspecified, not intractable, without status epilepticus; I27.20 Pulmonary hypertension, unspecified; K43.9 Ventral hernia without obstruction or gangrene; Z86.73 Personal history of transient ischemic attack (TIA), and cerebral infarction without residual deficits; F32.9 Major depressive disorder, single episode, unspecified; R74.01 Elevation of levels of liver transaminase levels; K74.60 Unspecified cirrhosis of liver; K42.9 Umbilical hernia without obstruction or gangrene; F20.9 Schizophrenia, unspecified; N28.1 Cyst of kidney, acquired; E80.6 Other disorders of bilirubin metabolism; F29 Unspecified psychosis not due to a substance or known physiological condition
CPT/HCPCS: 36415; 70450-TC; 71045-TC; 76700-TC; 80048-TC; 80053-TC; 80076-TC; 81000-TC; 82140-TC; 82570-TC; 82962-TC; 83735-TC; 83935-TC; 84100-TC; 84132-TC; 84155-TC; 84300-TC; 84443-TC; 84484-TC; 85025-TC; 85730-TC; 87081-TC; G0378; G0480; J1815; J1940; J3490; U0003

== ENCOUNTER 2020-09-05 21:16 | Inpatient (IN) | payer MEDICARE, OTHER ==
[~2020-09-05] VITALS: Ht 193 cm; Wt 82.6 kg
[2020-09-05] MEDS: IV NS 0.9% 1,000 ML BAG IV ONE ×2 (00:45→22:45)
[~2020-09-05 21:16] MED LIST changes: -NA P133E RC; -PROP10TA10 PO; -RIFA550T PO; +ZOLP5TAB8 PO
--- NOTE | 2020-09-05 21:19 | NUR ---
PT AAOX1. BIBPA FROM [facility]. PT WAS SENT BY ZAYRA GURROLA FOR ABLABS; K=6.0. PT PLACED IN BED 4 ON CITY DRIVER AND PULSE OX. NO ACUTE DISTRESS NOTED. IV LINE ESTABLISHED FIFI 22G, BLOOD DRAWN, SENT TO LAB.
--- NOTE | 2020-09-05 21:20 | NUR ---
TRUDY ESCOBAR AT BED SIDE
[2020-09-05 21:54] LABS: BASOPHILS # (AUTO) 0.1 /CMM (0.0-0.2); EOSINOPHILS % (AUTO) 5.9 % (0.0-6.0); HEMATOCRIT 46 % (39-51); HEMOGLOBIN 14.7 g/dL (13.5-17.5); LYMPHOCYTES # (AUTO) 0.8 /CMM (0.8-4.8); LYMPHOCYTES % (AUTO) 12.2 % (20.0-44.0); MEAN CORPUSCULAR HGB CONC 32 g/dl (31.0-36.0); MEAN CORPUSCULAR VOLUME 79 fL (80-96); MONOCYTES # (AUTO) 0.6 /CMM (0.1-1.30); MONOCYTES % (AUTO) 8.7 % (2.0-12.0); NEUTROPHILS # (AUTO) 4.7 /CMM (1.8-8.9); NEUTROPHILS % (AUTO) 72.2 % (43.0-81.0); PLATELET COUNT (AUTO) 176 /CMM (150-450); RED BLOOD CELL COUNT(AUTO) 5.84 MIL/uL (4.5-6.0); WHITE BLOOD COUNT (AUTO) 6.5 K/uL (4.3-11.0)
[2020-09-05 22:04] LABS: CALCIUM, SERUM 9.3 mg/dL (8.5-10.1); CREATININE 1.7 mg/dL (0.6-1.3); POTASSIUM 5.4 mmol/L (3.5-5.1)
--- NOTE | 2020-09-05 22:05 | NUR ---
SELVINID SWABBED, SENT TO LAB.
[2020-09-05 22:09] LABS: ALBUMIN 3.3 g/dL (3.4-5.0); BILIRUBIN,DIRECT 0.5 mg/dL (0.0-0.2); BILIRUBIN,TOTAL 0.8 mg/dL (0.2-1.0); TOTAL PROTEIN, SERUM 8.5 g/dL (6.4-8.2)
[2020-09-05 23:04] LABS: BILIRUBIN,URINE Negative (NEGATIVE); BLOOD, URINE Negative Ery/uL (NEGATIVE); COLOR,URINE YELLOW (YELLOW); LEUKOCYTE ESTERASE ,URINE Negative (NEGATIVE); NITRITE, URINE Negative (NEGATIVE); PH,URINE 5.5 (5.0-8.0); PROTEIN,URINE Negative (NEGATIVE); UGLUCOSE Negative (NEGATIVE); UROBILINOGEN,URINE 0.2 EU/dL (0.2)
--- NOTE | 2020-09-05 23:07 | NUR ---
MD BEATTY AT BEDSIDE.
--- NOTE | 2020-09-05 23:14 | NUR ---
CALLED LAB REGARDING COVID PCR
[2020-09-05] MEDS ORDERED: ONDANSETRON HCL/PF 4 MG/2 ML VIAL IVP PRN (23:30)
[2020-09-05] MEDS ORDERED: Z GUARD REMEDY 2 OZ OINT TP PRN (23:30)
[2020-09-05] MEDS ORDERED: MAG HYDROX/AL HYDROX/SIMETH 30 ML UDC PO PRN (23:30)
[2020-09-05] MEDS ORDERED: MAGNESIUM HYDROXIDE 30 ML UDC PO PRN (23:30)
[2020-09-05] MEDS ORDERED: BISACODYL SUPP (10 MG) 10 MG/SUPP.RECT SUPP.RECT RC PRN (23:30)
[2020-09-05] MEDS ORDERED: ACETAMINOPHEN 325 MG TABLET PO PRN ×2 (23:30)
[2020-09-05] MEDS ORDERED: HYDROCODONE/APAP 5/325MG TABLET PO PRN (23:30)
--- NOTE | 2020-09-05 23:30 | NUR ---
COVID PCR SENT TO LAB.
--- NOTE | 2020-09-06 00:01 | NUR ---
TELE BED : 113-2
--- NOTE | 2020-09-06 00:10 | NUR ---
REPORT GIVEN TO LUCY JAMIL FOR DILEEP
--- NOTE | 2020-09-06 00:49 | NUR ---
HEALTH SERVICE COORDINATOR NOTES PATIENT ARRIVED ON FLOOR AT 0049. PATIENT IS ALERT AND ORIENTED X 1. AMBULATORY. BREATHING EVEN AND UNLABORED ON ROOM AIR. SHOWS NO SIGNS OF ACUTE RESPIRATORY DISTRESS, NO ACUTE PAIN. IV ON RAC 22G ITS CLEAN DRY AND INTACT. SHOWS NO SIGNS OF INFILTRATION, NO REDNESS. FLUSHES WELL. BELONGINGS CHECKLIST COMPLETED, AND SKIN ASSESSMENT COMPLETED. ORIENTED TO ROOM AND STAFF. SAFETY PRECAUTIONS IN PLACE. BED IN LOWEST POSITION, LOCKED, AND CALL LIGHT KEPT WITHIN REACH. WILL CONTINUE TO MONITOR.
--- NOTE | 2020-09-06 01:00 | NUR ---
ABATTOIR SUPERVISOR NOTES UNABLE TO DO COMPLETED INITIAL ASSESSMENT, PT CONFUSED. WILL CONTINUE TO MONITOR.
[2020-09-06] MEDS: ENOXAPARIN SODIUM 30 MG/0.3 ML DISP.SYRIN SQ SCH ×2 (01:21→20:33)
[2020-09-06 01:23] VITALS: BP 98/65
[2020-09-06 04:00] VITALS: BP 104/69
--- NOTE | 2020-09-06 06:35 | NUR ---
CIVIL SERVICE CLERK NOTES PATIENT IS IN BED, AWAKE, ALERT AND ORIENTED X 1. AMBULATORY. BREATHING EVEN AND UNLABORED ON ROOM AIR. SHOWS NO SIGNS OF ACUTE RESPIRATORY DISTRESS, NO ACUTE PAIN. IV ON RAC 22G ITS CLEAN DRY AND INTACT. SHOWS NO SIGNS OF INFILTRATION, NO REDNESS. FLUSHES WELL. ALL DUE MEDICATIONS GIVEN. ALL NEEDS ATTENDED TO. SAFETY PRECAUTIONS IN PLACE. BED IN LOWEST POSITION, LOCKED, AND CALL LIGHT KEPT WITHIN REACH. WILL ENDORSE TO ONCOMING NURSE.
--- NOTE | 2020-09-06 07:20 | NUR ---
PATIENT IS IN BED, AWAKE, ALERT AND ORIENTED X 1. AMBULATORY AND GAIT STEADY. BREATHING EVEN AND UNLABORED ON ROOM AIR. SHOWS NO SIGNS OF ACUTE RESPIRATORY DISTRESS, NO ACUTE PAIN. IV ON RAC 22G ITS CLEAN DRY AND INTACT. FLUSHED AND INTACT. DRESSING INTACT. SHOWS NO SIGNS OF INFILTRATION, NO REDNESS. TELE ON SR 70S. ALL HOSPITAL POLICY SAFETY PRECAUTIONS IMPLEMENTED, RAILS UP X2, BED LOCKED, LOW CALL LIGHT IN REACH, NON SLIP SOCKS ON. WILL REORIENT NEEDED, MONITOR LABS, IMPLEMENT ORDERS, AND REPORT TO MD NEEDED.
[2020-09-06 08:00] VITALS: BP 106/65
[2020-09-06] MEDS: ARIPIPRAZOLE 5 MG TABLET PO SCH (09:00)
[2020-09-06] MEDS: LEVOTHYROXINE SODIUM 50 MCG TABLET PO SCH (09:00)
[2020-09-06] MEDS: DOCUSATE SODIUM 100 MG CAPSULE PO SCH ×2 (09:01→16:19)
[2020-09-06] MEDS: LEVETIRACETAM (250 MG) 250 MG TABLET PO SCH ×2 (09:02→20:32)
[2020-09-06] MEDS: LACTULOSE 10 G/15 ML UDC (PYXIS) PO SCH ×4 (09:02→20:31)
[2020-09-06] MEDS: ESCITALOPRAM OXALATE (10 MG) 10 MG TABLET PO SCH (09:02)
[2020-09-06 12:00] VITALS: BP 101/64
[2020-09-06] MEDS: IV NS 0.9% 1,000 ML IV PRN ×2 (14:06→21:01)
[2020-09-06 16:00] VITALS: BP 106/66
[2020-09-06 16:15] LABS: BASOPHILS % (AUTO) 0.7 % (0.0-2.0); EOSINOPHILS % (AUTO) 5.6 % (0.0-6.0); HEMATOCRIT 49 % (39-51); LYMPHOCYTES % (AUTO) 15.1 % (20.0-44.0); MEAN CORPUSCULAR HGB CONC 33 g/dl (31.0-36.0); MEAN CORPUSCULAR VOLUME 78 fL (80-96); MONOCYTES # (AUTO) 0.4 /CMM (0.1-1.30); MONOCYTES % (AUTO) 6.3 % (2.0-12.0); NEUTROPHILS # (AUTO) 4.7 /CMM (1.8-8.9); NEUTROPHILS % (AUTO) 72.3 % (43.0-81.0); PLATELET COUNT (AUTO) 199 /CMM (150-450); WHITE BLOOD COUNT (AUTO) 6.5 K/uL (4.3-11.0)
[2020-09-06 16:29] LABS: CALCIUM, SERUM 9.6 mg/dL (8.5-10.1); CREATININE 1.2 mg/dL (0.6-1.3); MAGNESIUM 2.1 mg/dL (1.8-2.4); PHOSPHORUS 3.7 mg/dL (2.5-4.9); POTASSIUM 5.1 mmol/L (3.5-5.1)
--- NOTE | 2020-09-06 19:25 | NUR ---
RN OPENING NOTES: RECEIVED PT A/OX1 IN BED RESTING COMFORTABLY.PATIENT IN NO S/SX OF ACUTE DISTRESS AT THIS TIME. NO SOB NOTED. PATIENT'S BREATHING IS EVEN AND UNLABORED. PATIENT IS ON ROOM AIR ; TOLERATING WELL WITH 02 SAT OF 96 % AT THE TIME OF RECEIVED. PATIENT ON TELE MONITORING READING SINUS RHYTHM HR IS @80s. NOTED IV SITE ON R AC# 22; PATENT, INTACT AND FLUSHING WELL; NO S/S OF INFECTION OR INFILTRATION. WITH IV FLUID RUNNING ORDERED. SAFETY MEASURES HAVE BEEN PROVIDED AND IMPLEMENTED. PATIENT BED ALARM IS ON. HEAD OF BED ELEVATED. BED IS LOCKED, IN LOWEST POSITION AND SIDE RAILS UP. CALL LIGHT WITHIN REACH OF THE PATIENT. APPLICABLE ISOLATION PRECAUTIONS IN PLACE. WILL CONTINUE TO MONITOR AND REASSESS FOR ANY CHANGES AND WILL CARRY OUT ANY ONGOING AND ACTIVE MD ORDER.
--- NOTE | 2020-09-06 19:58 | NUR ---
PATIENT IS IN BED, AWAKE, ALERT AND ORIENTED X 1. AMBULATORY AND GAIT STEADY. BREATHING EVEN AND UNLABORED ON ROOM AIR. SHOWS NO SIGNS OF ACUTE RESPIRATORY DISTRESS, NO ACUTE PAIN. TELE ON SR 70S. ALL HOSPITAL POLICY SAFETY PRECAUTIONS IMPLEMENTED, RAILS UP X2, BED LOCKED, LOW CALL LIGHT IN REACH, NON SLIP SOCKS ON. REORIENTED NEEDED, MONITORED LABS, IMPLEMENTED ORDERS, AND REPORTED TO MD NEEDED. ENDORSED TO PM RN.
[2020-09-06 20:00] VITALS: BP 96/57
--- NOTE | 2020-09-06 20:55 | NUR ---
RN NOTES NOTED IV LINE ON R AC TO BE DISLODGED AND NON-PATENT. FACILITATED CHANGE AND REINSERTION OF IV LINE @ L FA HAND #22. OSTRICH FARMER MADE AWARE. WILL CONTINUE TO MONITOR AND ASSESS
[2020-09-06] MEDS: LATANOPROST EYE DROP 0.005% 2.5 ML BOTTLE EACHEYE SCH (21:06)
--- NOTE | 2020-09-06 22:00 | NUR ---
RN NOTES PATIENT REMAINS IN NO ACUTE RESPIRATORY DISTRESS AT THIS TIME, NO CHANGES TO CONDITION/STATUS. MANAGER OPERATIONAL WELL AWARE. WILL CONTINUE TO MONITOR AND REASSESS FOR ANY CHANGES THROUGHOUT THE SHIFT
[2020-09-07] VITALS (7 sets, daily range): BP systolic 92–110; BP diastolic 51–88
--- NOTE | 2020-09-07 03:30 | NUR ---
RN MARYURI RUTLEDGE FROM LABORATORY CALLED TO RELAY NEGATIVE RESULT FOR COVID PCR. AILEEN, PRIMARY RN AND HERB, ELECTRONIC INSTALLER NOTIFIED
--- NOTE | 2020-09-07 04:00 | NUR ---
RN NOTES NO CHANGE IN PATIENT CONDITION AT THIS TIME PATIENT VITALS STABLE, NO SIGNS OF ACUTE RESPIRATORY DISTRESS. PROVIDER CONTRACTING CONSULTANT MADE AWARE. WILL CONTINUE TO MONITOR AND REASSESS FOR ANY CHANGES THROUGHOUT THE SHIFT.
--- NOTE | 2020-09-07 06:44 | NUR ---
RN CLOSING NOTE PATIENT REMAINS IN ROOM. NO SIGNS OF RESPIRATORY DISTRESS. SAFETY MEASURES IMPLEMENTED, BED IN LOWEST POSITION, LOCKED, SIDE RAILS UP, CALL LIGHT WITHIN REACH. ALL NEEDS AND ORDERS ADDRESSED DURING THE SHIFT. ALL DUE MEDS GIVEN ORDERED & SCHEDULED ; PATIENT TOLERATED WELL.PATIENT KEPT CLEAN AND COMFORTABLE WITHIN THE SHIFT. ENDORSED TO INCOMING SHIFT RN FOR CONTINUITY OF CARE.
[2020-09-07 06:56] LABS: BASOPHILS % (AUTO) 0.7 % (0.0-2.0); EOSINOPHILS % (AUTO) 6.4 % (0.0-6.0); HEMATOCRIT 48 % (39-51); HEMOGLOBIN 15.5 g/dL (13.5-17.5); LYMPHOCYTES % (AUTO) 18.4 % (20.0-44.0); MEAN CORPUSCULAR HGB CONC 32 g/dl (31.0-36.0); MEAN CORPUSCULAR VOLUME 79 fL (80-96); MONOCYTES # (AUTO) 0.4 /CMM (0.1-1.30); NEUTROPHILS # (AUTO) 3.7 /CMM (1.8-8.9); NEUTROPHILS % (AUTO) 66.5 % (43.0-81.0); PLATELET COUNT (AUTO) 181 /CMM (150-450); RED BLOOD CELL COUNT(AUTO) 6.15 MIL/uL (4.5-6.0); WHITE BLOOD COUNT (AUTO) 5.5 K/uL (4.3-11.0)
[2020-09-07 07:13] LABS: ALBUMIN 3.2 g/dL (3.4-5.0); BILIRUBIN,TOTAL 1.1 mg/dL (0.2-1.0); CALCIUM, SERUM 8.9 mg/dL (8.5-10.1); MAGNESIUM 2.1 mg/dL (1.8-2.4); PHOSPHORUS 3.6 mg/dL (2.5-4.9); POTASSIUM 5.5 mmol/L (3.5-5.1); TOTAL PROTEIN, SERUM 8.4 g/dL (6.4-8.2)
--- NOTE | 2020-09-07 07:20 | NUR ---
RN OPENING NOTE Received patient asleep appears calm and relaxed. On room air tolerating well o2 sat 93-95%. AO x1-2 with periods of blank stare and non verbal. Patient is able to mumble words at times. Tele reading SR 90s. Has L Hand IV #22 running NS @ 100ml/hr. Safety measures maintained. Call light within reach. Bed locked and on lowest position. Will cont to monitor.
[2020-09-07] MEDS ORDERED: FUROSEMIDE 20 MG/2 ML VIAL IV ONE (07:30)
[2020-09-07] MEDS: LEVOTHYROXINE SODIUM 50 MCG TABLET PO SCH (08:10)
[2020-09-07] MEDS: ARIPIPRAZOLE 5 MG TABLET PO SCH (08:12)
[2020-09-07] MEDS: LACTULOSE 10 G/15 ML UDC (PYXIS) PO SCH ×4 (08:12→20:48)
[2020-09-07] MEDS: DOCUSATE SODIUM 100 MG CAPSULE PO SCH ×2 (08:12→16:28)
[2020-09-07] MEDS: LEVETIRACETAM (250 MG) 250 MG TABLET PO SCH ×2 (08:13→20:48)
[2020-09-07] MEDS: ESCITALOPRAM OXALATE (10 MG) 10 MG TABLET PO SCH (08:13)
--- NOTE | 2020-09-07 09:57 | NUR ---
GAVE REPORT TO JJ JAMIL FOR DILEEP
--- NOTE | 2020-09-07 09:57 | NUR ---
RN OPENING NOTE Received patient resting in bed, appears calm and relaxed. On room air tolerating well o2 sat 93-95%. AO x1-2 with periods of blank stare and non verbal. Patient is able to mumble words at times. Tele reading SR 90s. Has L Hand IV #22 running NS @ 100ml/hr. Safety measures maintained. Call light within reach. Bed locked and on lowest position. Will continue to monitor and provide treatment.
[2020-09-07] MEDS: IV NS 0.9% 1,000 ML IV PRN (13:19)
--- NOTE | 2020-09-07 14:55 | NUR ---
SAFETY ADVISOR NOTES RECEIVED PATIENT FROM [facility]/ TRANSFER VIA IN STABLE CONDITION. PT A/OX1-2, AWAKE AND RESPONSIVE WITH GARBLED SPEECH, UNABLE TO UNDERSTAND SPEECH. PT WITH IV TO HAND #22 G, PATENT AND INTACT, NO REDNESS OR SWELLING NOTED, NO S/S OF INFILTRATION NOTED. PT WEARING STREET CLOTHES AND HAS A BLUE DUFFLE BAG AT BEDSIDE. PT IS AMBULATORY, SKIN IS INTACT. PT ON RA BREATHING EVEN AND UNLABORED WITH NO S/S OF SOB OR RESPIRATORY DISTRESS NOTED. BED IS AT LOWEST POSITION AND LOCKED WITH SIDE RAILS UPX2 AND CALL LIGHT WITH IN REACH. ALL SAFETY MEASURES IN PLACE. WILL CONTINUE TO MONITOR PATIENT THROUGH SHIFT
--- NOTE | 2020-09-07 18:40 | NUR ---
AIR CARGO GROUND OPERATIONS SUPERVISOR CLOSING NOTES PATIENT RESTING IN BED COMFORTABLY, A/OX1, CONFUSED PER SNF THIS IS HIS BASELINE, PT IS ABLE TO FOLLOW COMMANDS. ON RA WITH NO S/S OF SOB, BREATHING EVEN AND UNLABORED, NO ACUTE DISTRESSED NOTED. IV TO LT HAND #22 G PATENT AND INTACT INFUSING NS @100 ML/HR. PT ABLE TO AMBULATE WITH STEADY STABLE GAIT. PT WITH BRP. SKIN INTACT. ON RENAL STANDARD DIET, BED IS AT LOWEST POSITION AND LOCKED WITH SIDE RAILS UPX2 AND CALL LIGHT WITH IN REACH, WILL ENDORSE TO ONCOMING SHIFT.
--- NOTE | 2020-09-07 19:00 | NUR ---
RN OPENING NOTES Pt awake on bed, resting. No complaints made at this time. On fall and aspiration precautions. Will continue to monitor accordingly.
[2020-09-07] MEDS: ENOXAPARIN SODIUM 30 MG/0.3 ML DISP.SYRIN SQ SCH (20:43)
[2020-09-07] MEDS: LATANOPROST EYE DROP 0.005% 2.5 ML BOTTLE EACHEYE SCH (21:37)
[2020-09-08 04:00] VITALS: BP 108/69
--- NOTE | 2020-09-08 07:30 | NUR ---
RN OPENING NOTES PATIENT RESTING IN BED COMFORTABLY, A/OX1, CONFUSED PAS IS HIS BASELINE, PT IS ABLE TO FOLLOW COMMANDS. ON RA WITH NO S/S OF SOB, BREATHING EVEN AND UNLABORED, NO ACUTE DISTRESSED NOTED. IV TO LT HAND #22 G PATENT AND INTACT INFUSING NS @100 ML/HR. PT ABLE TO AMBULATE WITH STEADY STABLE GAIT. PT WITH BRP. SKIN INTACT. SAFETY PRECAUTIONS IN PLACE BED IS AT LOWEST POSITION AND LOCKED WITH SIDE RAILS UPX2 AND CALL LIGHT WITH IN REACH, WILL CONT TO MONITOR
[2020-09-08 08:00] VITALS: BP 130/76
[2020-09-08] MEDS: LEVETIRACETAM (250 MG) 250 MG TABLET PO SCH ×2 (08:33→21:23)
[2020-09-08] MEDS: LACTULOSE 10 G/15 ML UDC (PYXIS) PO SCH ×4 (08:33→21:22)
[2020-09-08] MEDS: ESCITALOPRAM OXALATE (10 MG) 10 MG TABLET PO SCH (08:33)
[2020-09-08] MEDS: LEVOTHYROXINE SODIUM 50 MCG TABLET PO SCH (08:33)
[2020-09-08] MEDS: ARIPIPRAZOLE 5 MG TABLET PO SCH (08:33)
[2020-09-08] MEDS: DOCUSATE SODIUM 100 MG CAPSULE PO SCH ×2 (08:33→16:08)
[2020-09-08 10:07] LABS: PTH, INTACT 22 pg/mL (15-65)
[2020-09-08] MEDS ORDERED: FUROSEMIDE 20 MG/2 ML VIAL IV ONE (10:30)
--- NOTE | 2020-09-08 11:15 | NUR ---
pt accidentally pulled out iv. iv reinserted on l hand g20. intact and patent and flushing well.
[2020-09-08 12:00] VITALS: BP 110/64
[2020-09-08] MEDS: CITRIC ACID/SODIUM CITRATE (BICITRA)15 ML UDC PO SCH ×3 (12:16→21:22)
--- NOTE | 2020-09-08 14:00 | NUR ---
urine collected and sent to lab
[2020-09-08 16:00] VITALS: BP 99/70
[2020-09-08 16:15] LABS: BILIRUBIN,URINE NEGATIVE (NEGATIVE); BLOOD, URINE NEGATIVE Ery/uL (NEGATIVE); COLOR,URINE YELLOW (YELLOW); LEUKOCYTE ESTERASE ,URINE NEGATIVE (NEGATIVE); NITRITE, URINE NEGATIVE (NEGATIVE); PROTEIN,URINE NEGATIVE (NEGATIVE); UGLUCOSE NEGATIVE (NEGATIVE); UROBILINOGEN,URINE 0.2 EU/dL (0.2)
[2020-09-08] MEDS: IV NS 0.9% 1,000 ML IV PRN (16:19)
[2020-09-08 16:43] LABS: EOSINOPHIL,URINE None Seen
[2020-09-08 16:46] LABS: CREATININE, URINE 26.8 MG/DL (30.0-125.0)
[2020-09-08 17:02] LABS: URINE TOTAL PROTEIN 4.8 mg/dL (0-11.9)
--- NOTE | 2020-09-08 19:43 | NUR ---
RN CLOSING NOTES PATIENT RESTING IN BED COMFORTABLY, A/OX1, CONFUSED IS HIS BASELINE, PT IS ABLE TO FOLLOW COMMANDS. ON RA WITH NO S/S OF SOB, BREATHING EVEN AND UNLABORED, NO ACUTE DISTRESSED NOTED. IV ACCESS NOTED ON L HAND G20. PATENT AND INTACT INFUSING NS @100 ML/HR. PT ABLE TO AMBULATE WITH STEADY STABLE GAIT. PT WITH BRP. SKIN INTACT. ALL NEEDS MET AND ATTENDED. ALL DUE MEDS ADMINISTERED. NO ASE NOTED. KEPT CLEAN AND DRY. SAFETY PRECAUTIONS IN PLACE BED IS AT LOWEST POSITION AND LOCKED WITH SIDE RAILS UPX2 AND CALL LIGHT WITH IN REACH, ENDORSED TO RENÉE HVAC SHEET METAL INSTALLER HELPER RN FOR DILEEP.
--- NOTE | 2020-09-08 19:44 | NUR ---
RN PM OPENING NOTES REPORT RECIEVED FROM ISABELLA JAMIL. PATIENT IN BED, A/OX1, CONFUSED IS BASELINE, PT IS ABLE TO FOLLOW COMMANDS, MUMBLES RESPONSES. BREATHING EVEN AND UNLABORED, NO ACUTE DISTRESSED NOTED RESP EVEN AND UNLABORED. IV ACCESS NOTED ON L HAND G20. PATENT AND INTACT INFUSING NS @100 ML/HR. PT AMBULATORY WITH STEADY GAIT PER REPORT. SAFETY PRECAUTIONS IN PLACE BED IS AT LOWEST POSITION AND LOCKED WITH SIDE RAILS UPX2 AND CALL LIGHT WITH IN REACH. WILL CONT TO MONITOR.
[2020-09-08 20:50] VITALS: BP 99/65
[2020-09-08] MEDS: ENOXAPARIN SODIUM 30 MG/0.3 ML DISP.SYRIN SQ SCH (21:23)
[2020-09-08] MEDS: LATANOPROST EYE DROP 0.005% 2.5 ML BOTTLE EACHEYE SCH (21:34)
[2020-09-09 00:22] VITALS: BP 106/63
[2020-09-09] MEDS: IV NS 0.9% 1,000 ML IV PRN (02:31)
[2020-09-09 04:31] VITALS: BP 104/67
--- NOTE | 2020-09-09 07:03 | NUR ---
GRADE SETTER OPENING NOTES RECEIVED PT AWAKE IN BED AT THIS TIME. PT AOX1. CONFUSE. PT ABLE TO FOLLOW COMMANDS. NO SOB NOTED, NO S/S OF ANY ACUTE DISTRESS NOTED. NO C/O PAIN AT THIS TIME. RESPIRATIONS ARE EVEN AND UNLABORED. IV ACCESS NOTED IN LEFT HAND G#20, INTACT, PATENT AND FLUSHING WELL. PT ON EXTERNAL TELE CAREERS ADVISER READING SR IN 70S. ASPIRATION AND SAFETY PRECAUTION IN PLACE AND MAINTAINED AT ALL TIMES. BED IN LOWEST LOCKED POSITION, HOB ELEVATED, SIDE RAILS UP X 2, CALL LIGHT AND TABLE WITHIN REACH. WILL CONTINUE TO MONITOR
[2020-09-09 07:18] LABS: BASOPHILS % (AUTO) 0.6 % (0.0-2.0); EOSINOPHILS % (AUTO) 6.6 % (0.0-6.0); HEMATOCRIT 46 % (39-51); HEMOGLOBIN 14.4 g/dL (13.5-17.5); LYMPHOCYTES # (AUTO) 0.9 /CMM (0.8-4.8); MEAN CORPUSCULAR HGB CONC 32 g/dl (31.0-36.0); MEAN CORPUSCULAR VOLUME 79 fL (80-96); MONOCYTES # (AUTO) 0.7 /CMM (0.1-1.30); MONOCYTES % (AUTO) 12.3 % (2.0-12.0); NEUTROPHILS # (AUTO) 3.8 /CMM (1.8-8.9); NEUTROPHILS % (AUTO) 65.5 % (43.0-81.0); PLATELET COUNT (AUTO) 162 /CMM (150-450); RED BLOOD CELL COUNT(AUTO) 5.79 MIL/uL (4.5-6.0); WHITE BLOOD COUNT (AUTO) 5.8 K/uL (4.3-11.0)
[2020-09-09 07:46] LABS: BILIRUBIN,TOTAL 1.2 mg/dL (0.2-1.0); CALCIUM, SERUM 8.6 mg/dL (8.5-10.1); CREATININE 1.2 mg/dL (0.6-1.3); MAGNESIUM 1.9 mg/dL (1.8-2.4); PHOSPHORUS 3.4 mg/dL (2.5-4.9); POTASSIUM 5.1 mmol/L (3.5-5.1); TOTAL PROTEIN, SERUM 7.9 g/dL (6.4-8.2)
[2020-09-09] MEDS: LEVOTHYROXINE SODIUM 50 MCG TABLET PO SCH (08:30)
[2020-09-09] MEDS: ESCITALOPRAM OXALATE (10 MG) 10 MG TABLET PO SCH (08:33)
[2020-09-09] MEDS: CITRIC ACID/SODIUM CITRATE (BICITRA)15 ML UDC PO SCH ×2 (08:33→13:16)
[2020-09-09] MEDS: LEVETIRACETAM (250 MG) 250 MG TABLET PO SCH (08:33)
[2020-09-09] MEDS: ARIPIPRAZOLE 5 MG TABLET PO SCH (08:33)
[2020-09-09] MEDS: LACTULOSE 10 G/15 ML UDC (PYXIS) PO SCH ×2 (08:33→13:16)
[2020-09-09] MEDS: DOCUSATE SODIUM 100 MG CAPSULE PO SCH (08:33)
[2020-09-09 08:56] VITALS: BP 109/62
[2020-09-09] MEDS ORDERED: CITR15SO PO (13:40)
--- NOTE | 2020-09-09 14:44 | NUR ---
RN NOTE REPORT GIVEN TO NURSE TOMI.
--- NOTE | 2020-09-09 15:05 | NUR ---
ASP NET SOFTWARE DEVELOPERNATURAL HISTORY COLLECTIONS CURATOR NOTES PT DISCHARGE TO [facility] AT THIS TIME. PT IS MEDICALLY STABLE AND CLEARED FOR DISCHARGE. PT KEPT CLEAN AND DRY. ALL CARE, NEEDS, TREATMENT AND MEDICATIONS ADMINISTERED ANTICIPATED PER ORDER. DISCHARGE INSTRUCTIONS PROVIDED. ALL BELONGINGS ACCOUNTED FOR, SIGNED BY PT, RETURN TO PT AND COPY OF BELONGING LIST FILED IN CHART. ID BAND REMOVED. IV ACCESS REMOVED, PRESSURE APPLIED, SECURED WITH GAUZE AND TAPE. NO SIGN OF BLEEDING OR INFILTRATION NOTED. PT LEFT THE UNIT AT THIS TIME IN STABLE CONDITION ACCOMPANIED BY TWO AMBULANCE PERSONNELS. THOR, CHARGE NURSE AND DR DARREL CUBA.
[2020-09-10 07:07] LABS: *SPE A/G RATIO 0.6 (0.7-1.7); *SPE ALBUMIN 3.1 g/dL (2.9-4.4); *SPE ALPHA-1-GLOBULIN 0.4 g/dL (0.0-0.4); *SPE ALPHA-2-GLOBULIN 1.1 g/dL (0.4-1.0); *SPE BETA GLOBULIN 1.2 g/dL (0.7-1.3); *SPE GLOBULIN, TOTAL 4.9 g/dL (2.2-3.9); *SPE M-SPIKE Not Observed g/dL (Not Observed); *SPEGAMMA GLOBULIN 2.3 g/dL (0.4-1.8)
== END 2020-09-09 14:55 | DRG 640 ==
LOC: ER 21:16 → TELE 09-06 00:11 → TELE1 09-06 00:54 → MED 09-07 14:33 → TELE 09-07 15:05
PROVIDERS: ADMIT Internal Medicine; ATTEND Nurse Practitioner Acute Care
DX: E87.5 Hyperkalemia (principal); N17.0 Acute kidney failure with tubular necrosis; G93.41 Metabolic encephalopathy; I50.32 Chronic diastolic (congestive) heart failure; I13.0 Hypertensive heart and chronic kidney disease with heart failure and stage 1 through stage 4 chronic kidney disease, or unspecified chronic kidney disease; E87.1 Hypo-osmolality and hyponatremia; F32.9 Major depressive disorder, single episode, unspecified; E03.9 Hypothyroidism, unspecified; G40.909 Epilepsy, unspecified, not intractable, without status epilepticus; N18.9 Chronic kidney disease, unspecified; I25.10 Atherosclerotic heart disease of native coronary artery without angina pectoris; K74.60 Unspecified cirrhosis of liver; Z86.73 Personal history of transient ischemic attack (TIA), and cerebral infarction without residual deficits; R74.01 Elevation of levels of liver transaminase levels; E87.70 Fluid overload, unspecified; F20.9 Schizophrenia, unspecified; I27.20 Pulmonary hypertension, unspecified
CPT/HCPCS: 36415; 71045-TC; 80048-TC; 80053-TC; 80076-TC; 82140-TC; 82436-TC; 82550-TC; 82570-TC; 83735-TC; 83935-TC; 83970; 84100-TC; 84133-TC; 84155; 84155-TC; 84165; 84300-TC; 84484-TC; 85025-TC; 87081-TC; A6403; C9803; G0378; J1650; J1940; J3490; J7030; U0003

== ENCOUNTER 2020-10-14 09:36 | Outpatient (CLI) | payer MEDICARE, OTHER ==
[~2020-10-14 09:36] MED LIST changes: +CITR15SO PO; -SPIR50TA PO
== END 2020-10-14 23:59 | disposition home or self-care (01) ==
LOC: US 09:36
PROVIDERS: ATTEND Student in an Organized Health Care Education/Training Program
DX: R18.8 Other ascites (principal)
CPT/HCPCS: 76942-TC

== ENCOUNTER 2021-01-22 13:51 | Emergency (ER) | payer MEDICARE, OTHER ==
[~2021-01-22] VITALS: Ht 185.4 cm; Wt 82.6 kg
[~2021-01-22 13:51] MED LIST changes: -LACT10SO PO; +LACT10SO3 PO
--- NOTE | 2021-01-22 14:00 | NUR ---
IVAN PELAEZ FROM [facility] BY DR GURROLA FOR ABDOMINAL PARACENTESIS. PER REPORT THE PATIENT HAD PARACENTESIS 2 MONTHS AGO. PATIENT IS ALERT AND ORIENTED TO HIS NAME. IN ROOM AIR. RESPIRATION REGULAR AND UNLABORED. DENIES PAIN. PATIENT IS IN NO APPARENT DISTRESS. WILL CONTINUE TO MONITOR THE PATIENT.
[2021-01-22 14:43] LABS: BASOPHILS # (AUTO) 0.1 /CMM (0.0-0.2); BASOPHILS % (AUTO) 2.2 % (0.0-2.0); EOSINOPHILS % (AUTO) 13.9 % (0.0-6.0); HEMATOCRIT 42 % (39-51); HEMOGLOBIN 13.3 g/dL (13.5-17.5); LYMPHOCYTES # (AUTO) 0.7 /CMM (0.8-4.8); LYMPHOCYTES % (AUTO) 12.7 % (20.0-44.0); MEAN CORPUSCULAR HGB CONC 32 g/dl (31.0-36.0); MEAN CORPUSCULAR VOLUME 80 fL (80-96); MONOCYTES # (AUTO) 0.6 /CMM (0.1-1.30); MONOCYTES % (AUTO) 10.9 % (2.0-12.0); NEUTROPHILS # (AUTO) 3.1 /CMM (1.8-8.9); NEUTROPHILS % (AUTO) 60.3 % (43.0-81.0); PLATELET COUNT (AUTO) 173 /CMM (150-450); RED BLOOD CELL COUNT(AUTO) 5.26 MIL/uL (4.5-6.0); WHITE BLOOD COUNT (AUTO) 5.2 K/uL (4.3-11.0)
[2021-01-22 14:51] LABS: CALCIUM, SERUM 8.8 mg/dL (8.5-10.1); CREATININE 1.1 mg/dL (0.6-1.3); POTASSIUM 4.8 mmol/L (3.5-5.1)
[2021-01-22 14:57] LABS: ALBUMIN 3.1 g/dL (3.4-5.0); BILIRUBIN,DIRECT 0.7 mg/dL (0.0-0.2); BILIRUBIN,TOTAL 1.2 mg/dL (0.2-1.0); TOTAL PROTEIN, SERUM 7.7 g/dL (6.4-8.2)
--- NOTE | 2021-01-22 15:16 | NUR ---
PER NURSE DURANT FROM [facility] THE PATIENT IS NOT ON ANY KIND OF BLOOD THINNERS.
--- NOTE | 2021-01-22 16:46 | NUR ---
PER DR MÁRQUEZ NO NEED TO SEND FLUIDS (PARACENTHESIS) TO THE LAB.
--- NOTE | 2021-01-22 17:27 | NUR ---
PARACENTESIS DONE WITH 2600 ML OUTPUT
--- NOTE | 2021-01-22 17:54 | NUR ---
CALLED [facility] FOR TRANSPORT TO [facility]. ETA 30-45 MINUTES.
--- NOTE | 2021-01-22 18:11 | NUR ---
report given to ariadne from [facility]
--- NOTE | 2021-01-22 19:38 | NUR ---
Patient discharged to snf in stable condition. Written and verbal after care instructions given. Patient got picked up via arranged tranpo.
[2021-01-22 19:40] VITALS: BP 107/67
== END 2021-01-22 19:40 ==
LOC: ER 13:54
DX: R18.8 Other ascites (principal); D64.9 Anemia, unspecified; G40.909 Epilepsy, unspecified, not intractable, without status epilepticus; I13.0 Hypertensive heart and chronic kidney disease with heart failure and stage 1 through stage 4 chronic kidney disease, or unspecified chronic kidney disease; I50.9 Heart failure, unspecified; N18.9 Chronic kidney disease, unspecified; K21.9 Gastro-esophageal reflux disease without esophagitis; F32.9 Major depressive disorder, single episode, unspecified; F20.9 Schizophrenia, unspecified; E03.9 Hypothyroidism, unspecified; Z79.899 Other long term (current) drug therapy
CPT/HCPCS: 36415; 76942-TC; 80048-TC; 80076-TC; 82140-TC; 82962-TC; 83690-TC; 85025-TC; 85730-TC

== ENCOUNTER 2021-03-17 20:55 | Inpatient (IN) | payer MEDICARE, OTHER ==
[~2021-03-17] VITALS: Ht 190.5 cm; Wt 114.8 kg
--- NOTE | 2021-03-17 21:47 | NUR ---
ABI FROM [facility] SENT BY PMD C/O R SIDED ABD PAIN, ABN (ALK PHOS- 556 BILI- 2.3 TO ER BED 8
[2021-03-17 22:08] LABS: BASOPHILS % (AUTO) 0.8 % (0.0-2.0); EOSINOPHILS % (AUTO) 4.8 % (0.0-6.0); HEMATOCRIT 43 % (39-51); HEMOGLOBIN 13.7 g/dL (13.5-17.5); LYMPHOCYTES # (AUTO) 0.7 /CMM (0.8-4.8); LYMPHOCYTES % (AUTO) 12.8 % (20.0-44.0); MEAN CORPUSCULAR HGB CONC 32 g/dl (31.0-36.0); MEAN CORPUSCULAR VOLUME 80 fL (80-96); MONOCYTES # (AUTO) 0.6 /CMM (0.1-1.30); MONOCYTES % (AUTO) 10.4 % (2.0-12.0); NEUTROPHILS # (AUTO) 3.9 /CMM (1.8-8.9); NEUTROPHILS % (AUTO) 71.2 % (43.0-81.0); PLATELET COUNT (AUTO) 219 /CMM (150-450); RED BLOOD CELL COUNT(AUTO) 5.43 MIL/uL (4.5-6.0); WHITE BLOOD COUNT (AUTO) 5.5 K/uL (4.3-11.0)
[2021-03-17 22:28] LABS: ALANINE AMINOTRANSFERASE 41 U/L (12-78); ALBUMIN 3.1 g/dL (3.4-5.0); ALKALINE PHOSPHATASE 680 U/L (46-116); ASPARTATE AMINOTRANSFERASE 42 U/L (15-37); BILIRUBIN,TOTAL 1.7 mg/dL (0.2-1.0); CALCIUM, SERUM 8.9 mg/dL (8.5-10.1); CARBON DIOXIDE 26 mmol/L (21-32); CHLORIDE 103 mmol/L (98-107); CREATININE 1.3 mg/dL (0.6-1.3); LIPASE 64 U/L (73-393); POTASSIUM 4.2 mmol/L (3.5-5.1); SODIUM SERUM 138 mmol/L (136-145); TOTAL PROTEIN, SERUM 8.2 g/dL (6.4-8.2); UREA NITROGEN, BLOOD 17 mg/dL (7-18)
[2021-03-17 22:45] LABS: GLUCOSE 102 mg/dL (74-106)
--- NOTE | 2021-03-17 22:46 | NUR ---
URINE COLLECTED AND SENT TO LAB
[2021-03-17 22:57] LABS: BILIRUBIN,URINE Negative (NEGATIVE); COLOR,URINE YELLOW (YELLOW); LEUKOCYTE ESTERASE ,URINE Negative (NEGATIVE); NITRITE, URINE Negative (NEGATIVE); PH,URINE 5.5 (5.0-8.0); PROTEIN,URINE Trace mg/dl (NEGATIVE); UGLUCOSE Negative (NEGATIVE); UROBILINOGEN,URINE 0.2 EU/dL (0.2)
--- NOTE | 2021-03-18 00:08 | NUR ---
MS 112-1
--- NOTE | 2021-03-18 00:11 | NUR ---
DR. JIANG PAGED PER JARVIS CHAN ORDER.
--- NOTE | 2021-03-18 00:39 | NUR ---
called in report to [facility]
--- NOTE | 2021-03-18 00:52 | NUR ---
ER MD SPOKE TO DR. JIANG REGARDING PT ADMISSION
[2021-03-18] MEDS ORDERED: MAGNESIUM HYDROXIDE 30 ML UDC PO PRN (01:30)
[2021-03-18] MEDS ORDERED: BISACODYL SUPP (10 MG) 10 MG/SUPP.RECT SUPP.RECT RC PRN (01:30)
[2021-03-18] MEDS ORDERED: ZOLPIDEM TARTRATE 5 MG TABLET PO PRN (01:30)
[2021-03-18 01:55] VITALS: BP 111/68
--- NOTE | 2021-03-18 02:00 | NUR ---
RN ADMITTING NOTES RECD REPORT FROM LOULOU BARCLAY FROM ED. PT IS AWARE OF SELF. RESPONDS SPONTANEOUSLY, BUT HAS HX OF CVA AND HAS TROUBLE EXPRESSING NEEDS/EXPRESSIVE APHASIA, PT CAN ANSWER YES OR NO QUESTIONS. UNABLE TO CLEARLY GAUGE PT ORIENTATION AND RETRIEVE MED HX. GOING OFF OF MED RECORD AND IF PT CAN ANSWER Y/N. PT IS ON 4L OF O2 VIA NC, NO SOB OR RESP DISTRESS. PT DENIES PAIN. PT HAS ASCITES, ABDOMEN FIRM. PRAVEEN LEG DRYNESS NOTED. ON MED SURG MONITORING. PT CLEANED PLACED IN GOWN, ALL BELONGINGS ACCOUNTED FOR. AT BEDSIDE. NOURISHMENT PROVIDED, NO ISSUES SWALLOWING NOTED. SAFETY MEASURES IN PLACE. NEEDS ATTENDED. HOB ELEVATED TOLERATED. SIDE RAILS UP X2 BED LOCKED IN LOWEST POSITION CALL LIGHT WITHIN REACH WILL CONT TO MONITOR CLOSELY.
--- NOTE | 2021-03-18 03:19 | NUR ---
RN NOTE TRIED TO CALL NEXT OF KIN/PERSON TO NOTIFY PT SISTER PAOLO CHEN. REGARDING PT CONSENT FOR US GUIDED PARACENTESIS. PT IS UNABLE TO CLEARLY VERBALIZE UNDERSTANDING OF PROCEDURE. UNABLE TO GET IN CONTACT/ WILL CALL AGAIN.
[2021-03-18 04:00] VITALS: BP 106/69
[2021-03-18 06:19] LABS: BASOPHILS # (AUTO) 0.1 /CMM (0.0-0.2); BASOPHILS % (AUTO) 1.2 % (0.0-2.0); EOSINOPHILS % (AUTO) 9.3 % (0.0-6.0); HEMATOCRIT 40 % (39-51); HEMOGLOBIN 12.9 g/dL (13.5-17.5); LYMPHOCYTES # (AUTO) 0.7 /CMM (0.8-4.8); LYMPHOCYTES % (AUTO) 13.7 % (20.0-44.0); MEAN CORPUSCULAR HGB CONC 32 g/dl (31.0-36.0); MEAN CORPUSCULAR VOLUME 80 fL (80-96); MONOCYTES # (AUTO) 0.7 /CMM (0.1-1.30); MONOCYTES % (AUTO) 13.1 % (2.0-12.0); NEUTROPHILS # (AUTO) 3.3 /CMM (1.8-8.9); NEUTROPHILS % (AUTO) 62.7 % (43.0-81.0); PLATELET COUNT (AUTO) 144 /CMM (150-450); RED BLOOD CELL COUNT(AUTO) 5.01 MIL/uL (4.5-6.0); WHITE BLOOD COUNT (AUTO) 5.3 K/uL (4.3-11.0)
[2021-03-18 06:28] LABS: ALBUMIN 2.6 g/dL (3.4-5.0); BILIRUBIN,TOTAL 1.3 mg/dL (0.2-1.0); CALCIUM, SERUM 8.2 mg/dL (8.5-10.1); CREATININE 1.1 mg/dL (0.6-1.3); MAGNESIUM 2.2 mg/dL (1.8-2.4); POTASSIUM 4.4 mmol/L (3.5-5.1); TOTAL PROTEIN, SERUM 7.1 g/dL (6.4-8.2)
--- NOTE | 2021-03-18 06:32 | NUR ---
RN CLOSING NOTE PT SLEEPING AT THIS TIME, STILL ON NC DELIVERING O2 AT 4L TOLERATING WELL. NO SOB OR RESP DISTRESS NOTED. PT DENIES PAIN. PT ABLE TO USE URINAL INDEPENDENTLY. ABDOMEN REMAINS UNCHANGED. UNABLE TO RETRIEVE CONSENT FROM SISTER. NO ANSWER AGAIN. UNABLE TO LEAVE MESSAGE. ALL NEEDS ATTENDED. SAFETY MEASURES IN PLACE HOB ELEVATED SIDE RAILS UP X2 BED LOCKED IN LOWEST POSITION WITH BED ALARM ON. CALL LIGHT WITHIN REACH. WILL ENDORSE TO DAY SHIFT FOR CONTINUATION OF CARE.
[2021-03-18 06:56] LABS: THYROID STIMULATING HORMONE 2.777 uIU/mL (0.358-3.74)
--- NOTE | 2021-03-18 07:10 | NUR ---
ms rn received on bed, awake,alert,oriented x2, forgetful,not in any form of distress, respirations even and unlabored, no sob noted, lungs are diminish,abdomen distended, soft, denies pain at this time, all needs attended.
[2021-03-18] MEDS: DOCUSATE SODIUM 100 MG CAPSULE PO SCH ×2 (08:34→17:43)
[2021-03-18] MEDS: FUROSEMIDE 20 MG TABLET PO SCH ×2 (08:34→17:43)
[2021-03-18] MEDS: MULTIVITAMINS,THERAGRAN 1 UDTAB TABLET PO SCH (08:34)
[2021-03-18] MEDS: ESCITALOPRAM OXALATE (10 MG) 10 MG TABLET PO SCH (08:34)
[2021-03-18] MEDS: FAMOTIDINE (20 MG) 20 MG TABLET PO SCH (08:34)
[2021-03-18] MEDS: ARIPIPRAZOLE 5 MG TABLET PO SCH (08:34)
[2021-03-18] MEDS: CITRIC ACID/SODIUM CITRATE (BICITRA)15 ML UDC PO SCH ×4 (08:35→21:11)
[2021-03-18] MEDS: LEVETIRACETAM (250 MG) 250 MG TABLET PO SCH ×2 (08:35→21:11)
[2021-03-18] MEDS: LACTULOSE 10 G/15 ML UDC (PYXIS) PO SCH ×4 (08:35→21:11)
--- NOTE | 2021-03-18 08:35 | NUR ---
ms [place] breakfast served,due meds given,tolerated well.
--- NOTE | 2021-03-18 08:45 | NUR ---
ms rn ultrasound called for consent.
[2021-03-18] MEDS: LEVOTHYROXINE SODIUM 50 MCG TABLET PO SCH (09:10)
--- NOTE | 2021-03-18 11:00 | NUR ---
ms rn on bed, no distress noted,patient for us guided, paracenthesis today, tel consent taken from his sister Daria
--- NOTE | 2021-03-18 11:30 | NUR ---
ms rn called ultrasound that consent is done for procedure.
--- NOTE | 2021-03-18 16:30 | NUR ---
ms rn called ultrasound for procedure, said that will be done in am coz no pt/inr result.
--- NOTE | 2021-03-18 17:15 | NUR ---
REGARDING PARACENTESIS, AT 5PM STILL NO INR
--- NOTE | 2021-03-18 18:40 | NUR ---
ms rn on bed,no distress noted.
--- NOTE | 2021-03-18 19:30 | NUR ---
RN OPENING NOTE PATIENT IN BED, AWAKE. PATIENT HAS GARBLED SPEECH, A/O X 2. PATIENT IS CURRENTLY ON 4 L OF O2 SUPPLEMENTATION, SATTING AT 92%. PATIENT IS ABLE TO MAKE NEEDS KNOWN. BREATHING EVEN AND UNLABORED, NOT IN ANY APPARENT DISTRESS. IV ACCESS GETTING INFILTRATED WHEN FLUSHED, WILL INSERT NEW IV ACCESS. PATIENT'S ABDOMEN ENLARGED D/T ASCITES. PATIENT IS DUE FOR US GUIDED PARACENTESIS TOMORROW. SAFETY MEASURES IN PLACE: BED IN LOCKED AND LOWEST POSITION, CALL LIGHT WITHIN REACH, SIDE RAILS UP, HOB ELEVATED. WILL MONITOR PATIENT CLOSELY.
[2021-03-18 20:00] VITALS: BP 110/70
[2021-03-18] MEDS: LATANOPROST EYE DROP 0.005% 2.5 ML BOTTLE EACHEYE SCH (21:11)
--- NOTE | 2021-03-19 01:14 | NUR ---
LFA 22 G INSERTED. FLUSHING WELL AND INTACT.
[2021-03-19 06:57] LABS: BASOPHILS # (AUTO) 0.1 /CMM (0.0-0.2); BASOPHILS % (AUTO) 1.1 % (0.0-2.0); EOSINOPHILS % (AUTO) 9.7 % (0.0-6.0); HEMATOCRIT 42 % (39-51); HEMOGLOBIN 13.4 g/dL (13.5-17.5); LYMPHOCYTES # (AUTO) 0.8 /CMM (0.8-4.8); MEAN CORPUSCULAR HGB CONC 32 g/dl (31.0-36.0); MEAN CORPUSCULAR VOLUME 79 fL (80-96); MONOCYTES # (AUTO) 0.6 /CMM (0.1-1.30); MONOCYTES % (AUTO) 11.6 % (2.0-12.0); NEUTROPHILS # (AUTO) 3.1 /CMM (1.8-8.9); NEUTROPHILS % (AUTO) 61.6 % (43.0-81.0); PLATELET COUNT (AUTO) 216 /CMM (150-450); RED BLOOD CELL COUNT(AUTO) 5.27 MIL/uL (4.5-6.0)
--- NOTE | 2021-03-19 06:57 | NUR ---
RN CLOSING NOTE PATIENT SITTING AT THE EDGE OF THE BED, AWAKE. PATIENT ABLE TO MAKE NEEDS KNOWN. NO SIGNIFICANT CHANGES THROUGHOUT THE SHIFT. PATIENT NPO STATUS AT THIS TIME FOR US GUIDED PARACENTESIS. NO COMPLAINS OF PAIN AT THIS TIME. NEEDS RE-ENFORCEMENT REGARDING KEEPING NASAL CANNULA ON. STILL ON 4 L OF O2, BREATHING EVEN AND UNLABORED. SAFETY MEASURES MAINTAINED. ALL NEEDS MET AND ATTENDED. ALL ORDERS CARRIED OUT. WILL ENDORSE TO DAY SHIFT NURSE FOR DILEEP.
[2021-03-19 07:21] LABS: ALBUMIN 3.1 g/dL (3.4-5.0); BILIRUBIN,DIRECT 0.9 mg/dL (0.0-0.2); CALCIUM, SERUM 9.1 mg/dL (8.5-10.1); CREATININE 1.2 mg/dL (0.6-1.3); MAGNESIUM 2.1 mg/dL (1.8-2.4); PHOSPHORUS 3.6 mg/dL (2.5-4.9); POTASSIUM 4.6 mmol/L (3.5-5.1); TOTAL PROTEIN, SERUM 8.1 g/dL (6.4-8.2)
--- NOTE | 2021-03-19 07:30 | NUR ---
RN OPENING NOTE PT A/Ox2 WITH EXPRESSIVE APHASIA, SEATED UPRIGHT IN BED BREATHING RA 92% WITH NO S/S OF RESP DISTRESS OR SOB, BREATHING EVEN AND UNLABORED. PT CURRENTLY REFUSING NC. PT ASCITES NOTED WITH UMBILICUS PROTRUDING, SKIN INTACT. PT AMBULATORY WITH STEADY GAIT. PT CURRENTLY NPO, US GUIDED PARACENTESIS SCHEDULED FOR 0900. PT LFA #22 SL, FLUSHED, INTACT AND PATENT WITH NO S/S OF INFECTION/INFILTRATION. ALL PT SAFETY PRECAUTIONS IN PLACEC, WILL CONT OT MONITOR
[2021-03-19 08:00] VITALS: BP 105/72
[2021-03-19] MEDS: FUROSEMIDE 20 MG TABLET PO SCH ×2 (08:26→16:20)
[2021-03-19] MEDS: FAMOTIDINE (20 MG) 20 MG TABLET PO SCH (08:26)
[2021-03-19] MEDS: DOCUSATE SODIUM 100 MG CAPSULE PO SCH ×2 (08:26→16:20)
[2021-03-19] MEDS: MULTIVITAMINS,THERAGRAN 1 UDTAB TABLET PO SCH (08:26)
[2021-03-19] MEDS: LACTULOSE 10 G/15 ML UDC (PYXIS) PO SCH ×4 (08:26→23:08)
[2021-03-19] MEDS: CITRIC ACID/SODIUM CITRATE (BICITRA)15 ML UDC PO SCH ×4 (08:26→23:08)
[2021-03-19] MEDS: ARIPIPRAZOLE 5 MG TABLET PO SCH (08:27)
[2021-03-19] MEDS: LEVOTHYROXINE SODIUM 50 MCG TABLET PO SCH (08:27)
[2021-03-19] MEDS: LEVETIRACETAM (250 MG) 250 MG TABLET PO SCH ×2 (08:27→23:07)
[2021-03-19] MEDS: ESCITALOPRAM OXALATE (10 MG) 10 MG TABLET PO SCH (08:27)
--- NOTE | 2021-03-19 09:30 | NUR ---
RN NOTE PARACENTESIS BEDSIDE CONDUCTED. 5.[address] BEATTY NO NEED FOR FLUID ANALYSIS. PT TO RESUME CARDIAC DIET. NO S/S OF LIGHTHEADEDNESS OR DIZZINESS. PT INSTRUCTED TO NOT GET OUT OF BED AND TO USE CALL LIGHT IF HE NEEDS TO GET OUT, PT UNDERSTANDS. BED ALARM ON, WILL CONT TO MONITOR
[2021-03-19 16:00] VITALS: BP 122/73
--- NOTE | 2021-03-19 18:43 | NUR ---
RN CLOSING NOTE PT STILL BREATHING RA, SPO2 >91%, NO S/S OF RESP DISTRESS OR SOB, BREATHING EVEN AND UNLABORED. PT TOLERATED US GUIDED PARACENTESIS WELL, 5.6 L REMOVED, NO FLUID ANALYSIS ORDERED. NO OTHER CHANGES TO PT DURING SHIFT. ALL PT SAFETY PRECAUTIONS IN PLACE, WILL ENDORSE DILEEP TO ONCOMING RN
[2021-03-19 20:00] VITALS: BP 108/74
[2021-03-19] MEDS: LATANOPROST EYE DROP 0.005% 2.5 ML BOTTLE EACHEYE SCH (23:07)
[2021-03-20] VITALS: BP 109/77
--- NOTE | 2021-03-20 04:03 | NUR ---
patient not alert alert x2 very hard to under stand what patient is trying to say.has expressive aphasia. patient walks well no seizure activety.
[2021-03-20 08:00] VITALS: BP 115/71
--- NOTE | 2021-03-20 08:00 | NUR ---
RN OPENING NOTE RECEIVED PATIENT IN BED, AO X 2, ABLE TO RESPONDS ALL STIMULI. NO S/S OF DISTRESS OBSERVED. SKIN IS WARM TO TOUCH KEEP CLEAN/DRY, INTACT IV SITE, S/P PARACENTESIS AND NO ADVERSE REACTION OBSERVED. RESPIRATORY EVEN AND UNLABORED WITH OXYGEN AT 4LPM, NO DISTRESS OBSERVED. KEPT ELEVATED HOB FOR ENSURE AIRWAY AND ASPIRATION PRECAUTION, ALSO LOWEST BED POSITION FOR SAFETY. CALL LIGHT WITHIN REACH, WILL CONTINUE TO MONITOR.
[2021-03-20] MEDS: DOCUSATE SODIUM 100 MG CAPSULE PO SCH (08:15)
[2021-03-20] MEDS: CITRIC ACID/SODIUM CITRATE (BICITRA)15 ML UDC PO SCH ×2 (08:15→12:49)
[2021-03-20] MEDS: MULTIVITAMINS,THERAGRAN 1 UDTAB TABLET PO SCH (08:16)
[2021-03-20] MEDS: LEVETIRACETAM (250 MG) 250 MG TABLET PO SCH (08:16)
[2021-03-20] MEDS: LEVOTHYROXINE SODIUM 50 MCG TABLET PO SCH (08:16)
[2021-03-20] MEDS: ESCITALOPRAM OXALATE (10 MG) 10 MG TABLET PO SCH (08:16)
[2021-03-20] MEDS: LACTULOSE 10 G/15 ML UDC (PYXIS) PO SCH ×2 (08:16→12:49)
[2021-03-20] MEDS: FUROSEMIDE 20 MG TABLET PO SCH (08:16)
[2021-03-20] MEDS: ARIPIPRAZOLE 5 MG TABLET PO SCH (08:16)
[2021-03-20] MEDS: FAMOTIDINE (20 MG) 20 MG TABLET PO SCH (08:16)
--- NOTE | 2021-03-20 11:17 | NUR ---
PATIENT DISCHARGE TO [facility], GIVEN REPORT BHARGAV/RN.
--- NOTE | 2021-03-20 13:27 | NUR ---
2EMTs PICKED UP PATIENT TO THE [facility], PATIENT IN STABLE CONDITION. REFUSED TAKE WOUND PICTURE BEFORE DISCHARGED.
== END 2021-03-20 13:40 | DRG 432 ==
LOC: ER 21:00 → MEDSG1 03-18 00:10
PROVIDERS: ADMIT Internal Medicine; ATTEND Internal Medicine
PROC: 0W9G3ZZ Drainage of Peritoneal Cavity, Percutaneous Approach (ICD-10-PCS; principal; 2021-03-19)
DX: K74.60 Unspecified cirrhosis of liver (principal); I50.33 Acute on chronic diastolic (congestive) heart failure; K65.9 Peritonitis, unspecified; R18.8 Other ascites; E46 Unspecified protein-calorie malnutrition; R74.8 Abnormal levels of other serum enzymes; Z20.822 Contact with and (suspected) exposure to COVID-19; E03.9 Hypothyroidism, unspecified; E66.9 Obesity, unspecified; F25.9 Schizoaffective disorder, unspecified; G40.909 Epilepsy, unspecified, not intractable, without status epilepticus; I11.0 Hypertensive heart disease with heart failure; I27.20 Pulmonary hypertension, unspecified; I69.320 Aphasia following cerebral infarction; Z68.31 Body mass index [BMI] 31.0-31.9, adult; E80.6 Other disorders of bilirubin metabolism
CPT/HCPCS: 36415; 71045-TC; 76700-TC; 76942-TC; 80048-TC; 80053-TC; 80076-TC; 82140-TC; 83690-TC; 83735-TC; 84100-TC; 84443-TC; 84484-TC; 85025-TC; 85610-TC; 87081-TC; C9803; G0378; J3490

== ENCOUNTER 2021-03-26 21:46 | Inpatient (IN) | payer MEDICARE, OTHER ==
[~2021-03-26] VITALS: Ht 185.4 cm; Wt 105.2 kg
--- NOTE | 2021-03-26 22:16 | NUR ---
BIBEMS C/O RLQ PAIN WITH N/V SINCE 11AM FROM [facility] [place]. LAST EMESIS EPISODE 5MIN REFRIGERATION INSULATOR +ABD DISTENSION. TO ER BED 11
[2021-03-26] MEDS ORDERED: MORPHINE SULFATE INJ 4 MG/ML DISP.SYRIN ONE (22:20)
[2021-03-26] MEDS ORDERED: ONDANSETRON HCL/PF 4 MG/2 ML VIAL ONE (22:20)
[2021-03-26] MEDS ORDERED: MORPHINE SULFATE INJ 2 MG/ML DISP.SYRIN IV ONE (22:30)
[2021-03-26] MEDS ORDERED: IV NS 0.9% 1,000 ML BAG IV ONE (22:30)
[2021-03-26] MEDS ORDERED: ONDANSETRON HCL/PF 4 MG/2 ML VIAL IVP ONE (22:30)
[2021-03-26 22:47] LABS: BASOPHILS % (AUTO) 0.5 % (0.0-2.0); EOSINOPHILS % (AUTO) 0.7 % (0.0-6.0); HEMATOCRIT 46 % (39-51); HEMOGLOBIN 14.7 g/dL (13.5-17.5); LYMPHOCYTES # (AUTO) 0.4 K/uL (0.8-4.8); LYMPHOCYTES % (AUTO) 5.6 % (20.0-44.0); MEAN CORPUSCULAR HGB CONC 32 g/dl (31.0-36.0); MEAN CORPUSCULAR VOLUME 80 fL (80-96); MONOCYTES # (AUTO) 0.4 K/uL (0.1-1.30); NEUTROPHILS # (AUTO) 6.4 K/uL (1.8-8.9); NEUTROPHILS % (AUTO) 88.2 % (43.0-81.0); PLATELET COUNT (AUTO) 216 K/uL (150-450); RED BLOOD CELL COUNT(AUTO) 5.72 MIL/uL (4.5-6.0); WHITE BLOOD COUNT (AUTO) 7.2 K/uL (4.3-11.0)
[2021-03-26 22:55] LABS: CALCIUM, SERUM 9.2 mg/dL (8.5-10.1); CARBON DIOXIDE 23 mmol/L (21-32); CHLORIDE 104 mmol/L (98-107); CREATININE 1.4 mg/dL (0.6-1.3); GLUCOSE 134 mg/dL (74-106); POTASSIUM 4.8 mmol/L (3.5-5.1); SODIUM SERUM 137 mmol/L (136-145); UREA NITROGEN, BLOOD 19 mg/dL (7-18)
[2021-03-26 22:57] LABS: SERUM AMMONIA 25 umol/L (11-32)
[2021-03-26 23:01] LABS: ALANINE AMINOTRANSFERASE 36 U/L (12-78); ALKALINE PHOSPHATASE 610 U/L (46-116); ASPARTATE AMINOTRANSFERASE 39 U/L (15-37); BILIRUBIN,DIRECT 0.9 mg/dL (0.0-0.2); BILIRUBIN,TOTAL 1.7 mg/dL (0.2-1.0); LIPASE 58 U/L (73-393); TOTAL PROTEIN, SERUM 8.2 g/dL (6.4-8.2)
--- NOTE | 2021-03-26 23:20 | NUR ---
TAKEN TO CT
[2021-03-26] MEDS ORDERED: CEFTRIAXONE 1GM BAG (ER ONLY) 50 ML IV ONE (23:30)
[2021-03-27] VITALS (14 sets, daily range): BP systolic 98–137; BP diastolic 41–94
[2021-03-27 00:04] LABS: BILIRUBIN,URINE NEGATIVE (NEGATIVE); COLOR,URINE DARK YELLOW (YELLOW); LEUKOCYTE ESTERASE ,URINE NEGATIVE (NEGATIVE); NITRITE, URINE NEGATIVE (NEGATIVE); PH,URINE 5.5 (5.0-8.0); PROTEIN,URINE TRACE mg/dl (NEGATIVE); UGLUCOSE NEGATIVE (NEGATIVE); UROBILINOGEN,URINE 0.2 EU/dL (0.2)
--- NOTE | 2021-03-27 00:27 | NUR ---
CALL FROM LAB. RAPID COVID NEGATIVE.
--- NOTE | 2021-03-27 00:28 | NUR ---
NGT INSERTED CONNECTED TO REGULAR MEDIUM SUCTION, 900 MLS OF GASTRIC CONTENTS OUT, NOW ON LOW INTERMITENT SUCTION
[2021-03-27] MEDS ORDERED: ZOLPIDEM TARTRATE 5 MG TABLET PO PRN (00:30)
[2021-03-27] MEDS ORDERED: Z GUARD REMEDY 2 OZ OINT TP PRN (00:30)
[2021-03-27] MEDS ORDERED: ONDANSETRON HCL/PF 4 MG/2 ML VIAL IVP PRN (00:30)
[2021-03-27] MEDS ORDERED: MAGNESIUM HYDROXIDE 30 ML UDC PO PRN (00:30)
[2021-03-27] MEDS ORDERED: MORPHINE SULFATE INJ 2 MG/ML DISP.SYRIN IV PRN (00:30)
[2021-03-27] MEDS ORDERED: HYDROCODONE/APAP 5/325MG TABLET PO PRN (00:30)
[2021-03-27] MEDS ORDERED: IV D5/0.45 NACL 1,000 ML IV PRN (00:30)
[2021-03-27] MEDS ORDERED: MAG HYDROX/AL HYDROX/SIMETH 30 ML UDC PO PRN (00:30)
[2021-03-27] MEDS ORDERED: ACETAMINOPHEN 325 MG TABLET PO PRN (00:30)
--- NOTE | 2021-03-27 00:49 | NUR ---
REPORT GIVEN TO MARGARITA JAMIL
--- NOTE | 2021-03-27 01:35 | NUR ---
TRAM INSPECTOR ADMITTING NOTES RECEIVED PATIENT VIA BRISA ACCOMPANIED BY STORE CASHIER AVA. PATIENT IS AWAKE, A&O X 1-2. PATIENT GARBLING WORDS. NOTED WITH NGT ON RIGHT NARES. HOOKED TO LIS. WITH O2 VIA SIMPLE MAS AT 10LPM SATURATING WELL AT 96%. HOOKED TO TELE MONITOR, NSR, HR ON 80'S. VS TAKEN AND RECORDED FOLLOWS TEMP 97.5. ID [id number], RR 18, BP 117/76. WITH IV ACCESS ON RIGHT HAND, IV OF D5 1/2 NS X 45CC/HR INFUSING WELL. NO REDNESS, NO INFILTRATION NOTED. NOTED WITH ABDOMINAL HERNIA, ASCITES NOTED. DISCOLORATION ON BLE NOTED. PICTURE TAKEN AND FILED ON PATIENT'S CHART. SAFETY PRECAUTIONS PLACED: BED ON LOWEST LOCKED POSITION. SIDE RAILS RAISED X 2. CALL LIGHT WITHIN EASY REACH. WILL CONTINUE TO MONITOR PATIENT'S STATUS.
--- NOTE | 2021-03-27 02:31 | NUR ---
RN NOTES PATIENT IS NOTED TO BE NAUSEOUS, ZOFRAN GIVEN ORDERED. WILL CONTINUE TO MONITOR PATIENT.
--- NOTE | 2021-03-27 03:05 | NUR ---
RN NOTES PATIENT PULLED OUT NGT, TRIED TO REINSERT BUT PATIENT IS NOTED TO BE IRRITABLE AND REFUSING REINSERTION, DR. GURROLA MADE AWARE.
[2021-03-27] MEDS ORDERED: LORAZEPAM INJ 2 MG/ML VIAL IV PRN (06:00)
--- NOTE | 2021-03-27 06:41 | NUR ---
RN NOTES REINSERTED NGT USING NG TUBE F16 ON LEFT NARES. NOTED WITH GARGLING SOUNDS UPON AUSCULTATION. GASTRIC CONTENT NOTED. HOOKED TO LOW INTERMITTENT SUCTIONING. OUTPUT OF 400 CC NOTED.
--- NOTE | 2021-03-27 06:42 | NUR ---
VENIPUNCTURIST CLOSING NOTES PATIENT IN BED, ASLEEP, PATIENT GARBLING WORDS. O2 VIA SIMPLE MASK AT 10LPM SATURATING WELL AT 97%. ON TELE MONITORING, NSR, HR ON 80'S. VS WNL. IV ACCESS ON RIGHT HAND, IV OF D5 1/2 NS X 45CC/HR INFUSING WELL. NO REDNESS, NO INFILTRATION NOTED. NO N/V AT THIS TIME. NO COMPLAINTS OF PAIN AT THIS TIME. SAFETY PRECAUTIONS PLACED: BED ON LOWEST LOCKED POSITION. SIDE RAILS RAISED X 2. CALL LIGHT WITHIN EASY REACH. STILL FOR NGT REINSERTION. FREQUENT VISUAL CHECKS DONE. ENDORSED TO MORNING SHIFT NURSE FOR CONTINUITY OF CARE.
--- NOTE | 2021-03-27 07:15 | NUR ---
RN NOTES PATIENT PULLED OUT NGT AGAIN. ATTEMPTED TO REINSERT 3X BUT UNSUCCESSFUL D/T PATIENT IS IRRITATED AND UNCOOPERATIVE. MORNING SHIFT NURSE AWARE.
[2021-03-27] MEDS ORDERED: HYDR-4209 PO (07:54)
[2021-03-27] MEDS ORDERED: POLY17PO4 PO (07:54)
[2021-03-27] MEDS ORDERED: NA P133E RC (07:54)
[2021-03-27] MEDS ORDERED: SPIR25TA PO (07:54)
--- NOTE | 2021-03-27 07:56 | NUR ---
CASTING REPAIRER OPENING NOTES RECEIVED PATIENT IN BED, AWAKE, A/O X2, ON ROOM AIR; BREATHING EVEN AND UNLABORED AT THIS TIME. TELE MONITOR WITH A CURRENT READING OF SR 86 BPM. NO COMPLAINS OF PAIN AT THIS MOMENT. L HAND IV ACCESS G # PRESENT AND INTACT INFUSING D5 1/2 NS @ 45 MLS/HR. REMOVED HIS NG-TUBE TWICE DURING ADOLESCENT SPECIALIST; TRIED TO JEN WITH ADOLESCENT SPECIALIST 3 TIMES BUT UNSUCCESSFUL; PATIENT REFUSES AND GET AGITATED. MD MADE AWARE; OK TO GET RESTRAINS ORDER. SAFETY PRECAUTIONS IN PLACE; BED IN LOW POSITION AND LOCKED, RAILS UP X2, CALL LIGHT WITHIN REACH. WILL CONTINUE TO MONITOR PATIENT.
[2021-03-27] MEDS: PANTOPRAZOLE 40 MG VIAL IV SCH (08:23)
--- NOTE | 2021-03-27 10:11 | NUR ---
AFFILIATE MANAGER NOTES REINSERTED NG TUBE TO L NARIS. STOMACH GURGLING PRESENT AND GREEN OUTPUT PRESENT WELL.
--- NOTE | 2021-03-27 11:19 | NUR ---
CLAM GRADER NOTES NG TUBE INSERTED TO 65 CM UMESH
[2021-03-27] MEDS: IV NS 0.9% 1,000 ML IV PRN ×2 (11:27→21:13)
[2021-03-27] MEDS ORDERED: BUPIVACAINE MPF W/EPI 0.25% 30 ML VIAL ONE (16:56)
[2021-03-27] MEDS ORDERED: LIDOCAINE 1% INJ 50 ML MDV IJ ONE (16:57)
--- NOTE | 2021-03-27 18:10 | NUR ---
STEAM SHOVEL OILER NOTES CONSENTS FOR SURGERY SIGNED OVER THE PHONE WITH CHARGE NURSE WITNESS DUE TO PATIENT INABILITY (PATIENT IS A/O X1AND CONFUSED) SISTER APRIL GAVE CONSENT FOR PROCEDURE. DR. SILVERIO SPOKE WITH FAMILY MEMBERS OVER THE PHONE WELL AND DISCUSSED THE PROCEDURE/SURGERY.
--- NOTE | 2021-03-27 18:12 | NUR ---
LOCOMOTIVE OILER NOTES PATIENT TAKEN TO OR WITH HIS BELONGINGS SINCE HE WILL MOST LIKELY GO TO ICU AFTER SURGERY.
[2021-03-27] MEDS ORDERED: MIDAZOLAM HCL 2 MG/2ML VIAL ONE (18:41)
[2021-03-27] MEDS ORDERED: FENTANYL PF 250MCG/5ML AMPUL ONE (18:41)
[2021-03-27] MEDS ORDERED: GLYCOPYRROLATE 0.2 MG/ML VIAL ONE (18:49)
--- NOTE | 2021-03-27 19:30 | NUR ---
PER DIEM NOTES REPORTED BY SHANT,PATIENT IN OPERATING ROOM HAVING SURGERY UNDER PIPPA MAN POSSIBLE TRANSFER TO ICU POST SURGERY FOR FURTHER EVALUATION AND MONITORING.,WITH ROOM 258.
--- NOTE | 2021-03-27 20:30 | NUR ---
ADMINISTRATIVE PROGRAM SPECIALIST. RECEIVED THE PT FROM OR S/P HERNIA REPAIR SURGERY. ORALLY INTUBATED. ETT #8.LIP 23CM,AC 14, TV 500,FIO2 100,PEEP 5. SAT 99%IV LT THUMB 22G. PRAVEEN WRIST RESTRAINT ON, LT NARE NGT INTACT. MD ORDERED LOW INTERMITTENT SUCTION. ADDOMEN DISTENDED. SURGICAL DRESSING INTACT. WAXED BAG MACHINE OPERATOR SHOWING S TACH. WILL CONTINUE TO MONITOR
--- NOTE | 2021-03-27 21:00 | NUR ---
STRAND AND BINDER CONTROLLER. F/C ORDER RECEIVED FROM MD VILLARREAL. 16FG PLACED WITH OUT DIFFICULT. CONCENTRATED URINE DRAINING.WILL CONTINUE TO MONITOR.
[2021-03-27] MEDS ORDERED: PROPOFOL 100 ML ONE (21:24)
[2021-03-27] MEDS: PROPOFOL 100 ML IV PRN (22:02)
--- NOTE | 2021-03-27 22:05 | NUR ---
forester silviculture. diprivan 5mcg/kg/min increased.
--- NOTE | 2021-03-27 22:10 | NUR ---
curriculum and assessment coordinator. 2207 lulirivan increased 15mcg/kg/min .
[2021-03-27 22:42] LABS: ABG BASE EXCESS -6.8 mmol/L; ABG OXYGEN SATURATION 95.8 % (92.0-98.5); ABG PCO2 38.5 mmHg (35.0-45.0); ABG PH 7.307 (7.350-7.450); ABG PO2 84.5 mmHg (75.0-100.0); COHb 1.1 % (0.5-1.5); MetHb 0.4 % (0.0-1.5); O2Hb 94.4 % (94.0-97.0); PEEP,BG 5 cm H2O; SITE, ABG Left Radial
--- NOTE | 2021-03-27 22:44 | NUR ---
ABG DONE. NOTIFIED RN WITH THE RESULT.
[2021-03-27] MEDS: CEFTRIAXONE 1 G in IV D5W 50 ML IV SCH (23:10)
[2021-03-27] MEDS ORDERED: SODIUM BICARBONATE SYR 50 MEQ/50 ML DISP.SYRIN ONE (23:12)
--- NOTE | 2021-03-27 23:25 | NUR ---
agricultural aircraft pilot. abg result notified md goodman. new order received
[2021-03-27] MEDS ORDERED: IV D5 / 0.2% NACL 1,000 ML IV PRN (23:30)
[2021-03-28] VITALS (76 sets, daily range): BP systolic 87–138; BP diastolic 57–88
--- NOTE | 2021-03-28 01:00 | NUR ---
supervisor agricultural education. dipricarol 20mcg/kg/min, increased.
--- NOTE | 2021-03-28 01:06 | NUR ---
agricultural commodities grader. remaining same vent setting tolerated well. sat 99%. no acute distress noted. field service tech showing s tach. iv lt upper arm 20g. bicarb drip 45ml/h. fc patent. urine draining. afebrile. sandrita soft wrist restraint checked and released. no injury or redness noted. will continue to monitor.
--- NOTE | 2021-03-28 03:32 | NUR ---
arboriculture teacher. am care given. remaining same vents etting tolearted well. sat 98%. no acute distress noted. quality assurance monitor showing nsr. iv rt upper arm picc line. bicarb dri running. sandrita soft wrist restraint checked and released. no injury or redness noted. fc patent urine draining. ivf bicarb drip running, propofol 20mcg/kg/min. afebrile. ngt low intermittent suction. turn and reposition q2h. will continue to monitor vitals.
[2021-03-28] MEDS: PROPOFOL 100 ML IV PRN ×4 (03:41→21:00)
[2021-03-28 04:31] LABS: BASOPHILS % (AUTO) 0.2 % (0.0-2.0); EOSINOPHILS % (AUTO) 1.1 % (0.0-6.0); HEMATOCRIT 47 % (39-51); HEMOGLOBIN 15.2 g/dL (13.5-17.5); LYMPHOCYTES # (AUTO) 0.5 K/uL (0.8-4.8); LYMPHOCYTES % (AUTO) 7.7 % (20.0-44.0); MEAN CORPUSCULAR HGB CONC 33 g/dl (31.0-36.0); MEAN CORPUSCULAR VOLUME 80 fL (80-96); MONOCYTES # (AUTO) 0.8 K/uL (0.1-1.30); MONOCYTES % (AUTO) 14.2 % (2.0-12.0); NEUTROPHILS # (AUTO) 4.6 K/uL (1.8-8.9); NEUTROPHILS % (AUTO) 76.8 % (43.0-81.0); PLATELET COUNT (AUTO) 211 K/uL (150-450); RED BLOOD CELL COUNT(AUTO) 5.87 MIL/uL (4.5-6.0)
[2021-03-28 04:57] LABS: THYROID STIMULATING HORMONE 2.501 uIU/mL (0.358-3.74)
[2021-03-28 05:11] LABS: CALCIUM, SERUM 8.3 mg/dL (8.5-10.1); CREATININE 1.6 mg/dL (0.6-1.3); PHOSPHORUS 4.3 mg/dL (2.5-4.9)
--- NOTE | 2021-03-28 08:09 | NUR ---
OPENING NOTE: REPORT RECEIVED FROM BI JAMIL. PER REPORT PT HAD SURGERY ON 03/27/21. PT INTUBATED AND SEDATED ON PROPOFOL. RESTRAINTS IN PLACE WITH A CURRENT ORDER. O2 SATS CURRENTLY LOW AT 87% ON 100% ON THE VENT. ABG WAS JUST DRAWN, WILL NOTIFY DR CARLIN OF RESULTS. TROTTER CATHETER PATENT, DRAINING SMALL AMOUNT OF CLEAR YELLOW URINE. ABDOMINAL BINDER IN PLACE. NG TUBE TO LIS. PT CHECKED ON HOURLY AND PRN BY NURSING STAFF.
[2021-03-28 08:19] LABS: ABG BASE EXCESS -6.7 mmol/L; ABG OXYGEN SATURATION 99.1 % (92.0-98.5); ABG PCO2 25.8 mmHg (35.0-45.0); ABG PH 7.409 (7.350-7.450); ABG PO2 137.4 mmHg (75.0-100.0); AaDO2 549.8 mmHg; MetHb 0.4 % (0.0-1.5); O2Hb 97.7 % (94.0-97.0); PEEP,BG 5 cm H2O; SITE, ABG Right Radial; VT, ABG 500 mL
--- NOTE | 2021-03-28 09:00 | NUR ---
NO SEDATION VACATION TODAY PER DR CARLIN
--- NOTE | 2021-03-28 09:00 | NUR ---
WOUND CARE CONSULT: PT PRESENTS WITH IMMOBILITY AND SACRAL SCARRING, PRESENT ON ADMISSION. RECOMMENDATIONS MADE FOR SKIN PROTECTION. DISCUSSED WITH NURSING STAFF. PT IS ON KARTHIKEYAN ISOFLEX LOW AIRLOSS BED. ABDOMINAL SURGICAL DRESSING IS DRY AND INTACT. MD IN AGREEMENT WITH PLAN OF CARE.
[2021-03-28] MEDS: PANTOPRAZOLE 40 MG VIAL IV SCH (10:21)
[2021-03-28] MEDS: IV D5/0.45 NACL 1,000 ML IV PRN ×2 (10:48→20:41)
--- NOTE | 2021-03-28 19:30 | NUR ---
END OF SHIFT NOTE: PT HAD AN UNEVENTFUL SHIFT. IVF CHANGED TO D5 1/2 NS AT 100ML/HR. PROPOFOL INFUSING AT 25MCG. NO SEDATION VACATION TODAY PER DR CARLIN FOR HIGH FI02 OF 70%. CONSENT SIGNED AND ON THE CHART FOR THORACENTESIS, UNKNOWN WHEN IT WILL BE DONE. PT CHECKED ON HOURLY AND PRN BY NURSING STAFF.
--- NOTE | 2021-03-28 19:45 | NUR ---
SENIOR LINUX UNIX ENGINEER. INITIAL ASSESSMENT. RECEIVED THE PT REST ON THE BED. ORALLY INTUBATED. SEDATED WITH DIPRIVAN. ETT #8, LIP 23CM,AC 14, TV 500,FIO2 50%, PEEP 5, SAT 98%, NO ACUTE DISTRESS NOTED. PIANO MAKER SHOWING NSR. IV RT UPPER ARM MID LINE. DIPRIVAN 25MCG/KG/MIN, IVF RUNNING@ 100ML/H. LT NARE NGTLOW INTERMITTENT SUCTION. FC PATENT. PRAVEEN SOFT WRIST RESTRAINT CHECKED AND RELEASED.NO INJURY OR REDNESS NOTED. HOBB ELEVATED. NPO. ABDOMENAL DRESSING INTACT. DRY AND CLEAN. WILL CONTINUE TO MONITOR
[2021-03-28] MEDS: CEFTRIAXONE 1 G in IV D5W 50 ML IV SCH (22:54)
[2021-03-29] VITALS (77 sets, daily range): BP systolic 71–148; BP diastolic 27–105
--- NOTE | 2021-03-29 00:49 | NUR ---
PIPING MANAGER. NO CHANGES. REMAINING SAME VENT SETTINGS TOLERATED WELL.
[2021-03-29] MEDS: PROPOFOL 100 ML IV PRN ×2 (02:06→06:11)
--- NOTE | 2021-03-29 04:19 | NUR ---
horticulturalist. am care given. remaining same vent settings tolerated well. sat 98%. no acute distress noted. video game animator showing nsr. iv rt upper arm mid line ivf d5 1/2 ns 100ml/h, diprivan 25mcg/kg/min, hob elevated. ngt low intermittent suction. sandrita soft wrist restraint checked and released no injury or redness noted. afebrile. turn and reposition q2h. will continue to monitor vitals.
[2021-03-29] MEDS: IV D5/0.45 NACL 1,000 ML IV PRN ×2 (05:47→21:59)
--- NOTE | 2021-03-29 06:16 | NUR ---
horticulture teacher. fio2 titrated down now 60%. sat 99%. vent setting tolerated well.
--- NOTE | 2021-03-29 08:00 | NUR ---
RN NOTES PER REPORT PT HAD SURGERY ON 03/27/21. PATIENT ON ETT/VENT DEPENDENT. AND TOLERATING WELL, NO ACUTE RESPIRATORY DISTRESS. FIO2-40%, PEEP-5. PATIENT SEDATED ON PROPOFOL 25MCG/KG/HR INTACT ON RIGHT MIDLINE., AND D5NS AT 83 ML/HR. RESTRAINTS IN PLACE WITH A CURRENT ORDER. TROTTER CATHETER PATENT, DRAINING VIA GRAVITY. ABDOMINAL DRESSING INTACT, AND DRY, HAS ABDOMINAL BINDER, DISTENDED ABDOMEN. NG TUBE TO LIS. SUCTION, MOUTH CARE DONE. ASSIST TURN AND REPOSTION Q 2 HR. WILL MONITORING.
[2021-03-29 08:34] LABS: BASOPHILS % (AUTO) 0.5 % (0.0-2.0); EOSINOPHILS % (AUTO) 4.5 % (0.0-6.0); HEMATOCRIT 48 % (39-51); HEMOGLOBIN 15.3 g/dL (13.5-17.5); LYMPHOCYTES # (AUTO) 0.5 K/uL (0.8-4.8); LYMPHOCYTES % (AUTO) 10.1 % (20.0-44.0); MEAN CORPUSCULAR HGB CONC 32 g/dl (31.0-36.0); MEAN CORPUSCULAR VOLUME 80 fL (80-96); MONOCYTES # (AUTO) 0.7 K/uL (0.1-1.30); MONOCYTES % (AUTO) 13.9 % (2.0-12.0); NEUTROPHILS # (AUTO) 3.7 K/uL (1.8-8.9); PLATELET COUNT (AUTO) 194 K/uL (150-450); RED BLOOD CELL COUNT(AUTO) 6.03 MIL/uL (4.5-6.0); WHITE BLOOD COUNT (AUTO) 5.2 K/uL (4.3-11.0)
--- NOTE | 2021-03-29 09:13 | NUR ---
REGARDING THORACENTESIS CALLED LONG CHAIN DYEING MACHINE OPERATOR IR MD RODRIGUEZ, NO ANSWER, LEFT A VOICE MESSAGE, WAITING FOR HIM TO CALL ME BACK
[2021-03-29 10:27] LABS: CALCIUM, SERUM 8.3 mg/dL (8.5-10.1); CREATININE 1.5 mg/dL (0.6-1.3)
--- NOTE | 2021-03-29 11:00 | NUR ---
rn notes picc line consent form get from sister, co- signed with co worker Sadaf JAMIL.
[2021-03-29] MEDS: ALBUMIN 25% 50 GM in PREMIX 1 EA IV SCH (11:11)
[2021-03-29] MEDS: PANTOPRAZOLE 40 MG VIAL IV SCH (11:13)
--- NOTE | 2021-03-29 11:21 | NUR ---
LOULOU NOTES STARTED SEDATION VACATION AT THIS TIME, ALSO GARDEN CONSULTANT Dr HARDWICK ORDERED WEANING FROM THE VENT. LOULOU NOTIFIED. Addendum: 03/29/21 at 1947 by ROXY EDGE RN NAME IS MERCADO.
[2021-03-29] MEDS ORDERED: SODIUM POLYSTYRENE SULFONATE 15 G/60 ML BOTTLE NG ONE (12:00)
--- NOTE | 2021-03-29 12:38 | NUR ---
RN NOTES PICC LINE INSERTED VIA LATANYA AWAD RIGHT UA INTACT.
--- NOTE | 2021-03-29 12:58 | NUR ---
RN NOTES PATIENT AWAKE AT THIS TIME. PATIENT TRIAL METHOD, WEANING, PLACED SIMV MOD VIA RT, VSS. WILL MONITORING.
--- NOTE | 2021-03-29 13:25 | NUR ---
rn notes Patient self extubated, Now on cool aerosol and doing well. Patient on mask 6l. Patient trying remove mask, keep bilateral restrain. will monitoring.
--- NOTE | 2021-03-29 15:48 | NUR ---
rn notes patient getting bedside thoracentesis right pleural, paatiebt tolerated procedure well output was 725 ml, send output lab for pathology.
--- NOTE | 2021-03-29 17:30 | NUR ---
rn notes patient on NC at this time 4L.
--- NOTE | 2021-03-29 17:48 | NUR ---
rn notes x-ray result: Decreased right pleural effusion and atelectasis post thoracentesis. No pneumothorax identified.
--- NOTE | 2021-03-29 18:30 | NUR ---
RN NOTES PATIENT PM CARE DONE, SUCTION, MOUTH CARE. DUE MEDICATION ADMINISTERED. PATIENT AWAKE ON O2-4LNC, NO ACUTE RESPIRATORY DISTRESS, ABDOMINAL DRESSING INTACT, ABDOMINAL BINDER ON. INFUSING D5NS AT 83 ML/HR ON RIGHT UA PICC LINE INTACT, TROTTER DRAINING VIA GRAVITY DARK OUTPUT. ASSIST PATIENT TURN AND REPOSTION Q 2 HR. RECHECKED WRIST RESTRAIN FOR CIRCULATION. CALL LIGHT WITHIN TO REACH. ENDORSED ONCOMING NURSE DILEEP.
--- NOTE | 2021-03-29 20:00 | NUR ---
RN NOTE RECEIVED PT IN BED AWAKE, PT IS ABLE TO FOLLOW COMMANDS,HAS UNCLEAR SPEECH,ON 5L VIA NC SATING 94%-95%. GAME PROTECTOR SHOWING SR WITH HR IN 80s.WILL CONTINUE WITH PLAN OF CARE.
[2021-03-29] MEDS: CEFTRIAXONE 1 G in IV D5W 50 ML IV SCH (23:00)
[2021-03-30] VITALS (52 sets, daily range): BP systolic 90–141; BP diastolic 35–82
[2021-03-30 05:13] LABS: BASOPHILS % (AUTO) 0.5 % (0.0-2.0); EOSINOPHILS % (AUTO) 3.6 % (0.0-6.0); HEMATOCRIT 40 % (39-51); HEMOGLOBIN 12.8 g/dL (13.5-17.5); LYMPHOCYTES # (AUTO) 0.6 K/uL (0.8-4.8); LYMPHOCYTES % (AUTO) 11.6 % (20.0-44.0); MEAN CORPUSCULAR HGB CONC 32 g/dl (31.0-36.0); MEAN CORPUSCULAR VOLUME 79 fL (80-96); MONOCYTES # (AUTO) 0.7 K/uL (0.1-1.30); MONOCYTES % (AUTO) 13.4 % (2.0-12.0); NEUTROPHILS # (AUTO) 3.5 K/uL (1.8-8.9); NEUTROPHILS % (AUTO) 70.9 % (43.0-81.0); PLATELET COUNT (AUTO) 172 K/uL (150-450); RED BLOOD CELL COUNT(AUTO) 5.04 MIL/uL (4.5-6.0)
[2021-03-30 06:01] LABS: CREATININE 1.1 mg/dL (0.6-1.3); POTASSIUM 3.7 mmol/L (3.5-5.1)
[2021-03-30 06:11] LABS: CALCIUM, SERUM 7.5 mg/dL (8.5-10.1)
--- NOTE | 2021-03-30 07:23 | NUR ---
RN NOTE REPORT GIVEN TO ONCOMING SHIFT FOR DILEEP.
--- NOTE | 2021-03-30 08:00 | NUR ---
RN NOTES RECEIVED PATIENT IN KEITH BED ON O25LNC. NO ACUTE RESPIRATORY DISTRESS. BEDSIDE MONITOR SHOWS SR. PATIENT HAS DISTENDED ABDOMEN, HYPOACTIVE BOWL SOUNDS. DRESSING INTACT, ABDOMINAL BINDER ON. DUE MEDICATION ADMINISTERED. ASSIST TURN AND REPOSTION Q 2 HR. PATIENT NPO, SEEN HOSPITALIST. WILL MONITORING.
[2021-03-30] MEDS: PANTOPRAZOLE 40 MG VIAL IV SCH (09:12)
[2021-03-30] MEDS: ALBUMIN 25% 50 GM in PREMIX 1 EA IV SCH (09:14)
[2021-03-30 10:38] LABS: ALBUMIN 2.4 g/dL (3.4-5.0); BILIRUBIN,DIRECT 0.9 mg/dL (0.0-0.2); BILIRUBIN,TOTAL 1.5 mg/dL (0.2-1.0); TOTAL PROTEIN, SERUM 5.8 g/dL (6.4-8.2)
--- NOTE | 2021-03-30 11:00 | NUR ---
RN NOTES PATIENT GET SWALLOW EVALUATION ORDER, ASSIST TURN AD REPOSTION Q 2 HR. RIGHT UA PICC LINE INTACT. WAS COMPLAINING OF ABDOMINAL PAIN 3/, SEEN RETAIL LOAN ORIGINATOR SJ NEW ORDER IS PT EVALUATION. ORDER TAKEN AND CARRIED OUT.
--- NOTE | 2021-03-30 12:15 | NUR ---
rn notes get order from hospitalist transfer patient to the tele unit, warehouse loader notified.
[2021-03-30] MEDS ORDERED: FENTANYL PF 100MCG/2ML AMPUL IV ONE (12:30)
--- NOTE | 2021-03-30 14:02 | NUR ---
RN NOTES ADMINISTERED FENTANYL 25MCG IV PUSH X1 AT THIS TIME FOR ABDOMINAL PAIN 03/13 PER PATIENT REQUEST. BP-106/65, P-85, R-22. WILL MONITORING.
--- NOTE | 2021-03-30 14:45 | NUR ---
RN NOTES TRANSFERRED PATIENT TO THE TELE UNIT, BEDSIDE REPORT GIVEN LOULOU CERVANTES. PATIENT STABLE. MEDICATION WERE ADMINISTERED FOR PAIN EFFECTIVE. RN WILL FOLLOW UP PLAN OF CARE.
--- NOTE | 2021-03-30 15:15 | NUR ---
ACADEMY EDUCATION DIRECTOR NOTE RECEIVED PATIENT FROM ICU AWAKE BUT CONFUSED , ON TELE MONITOR SR HR 88 , WITH BOTH SOFT RESTRAIN ORDERED, CHECKED FOR CIRCULATION , SKIN WARM AND DRY , HAS ABDOMINAL DRESSING INTACT AND BINDER ,KEEP DRESSING CLEAN DRY , ON NPO SATUS AT THIS TIME, RT UPPER ARM PICC LINE IN [id number] NC NO SOB NOTED SATURATION 96% AND FLUSHED WELL, BED IN LOWEST AND LOCKED POSITION, WILL ONT TO MONITOR ,
[2021-03-30 15:42] LABS: BASOPHILS % (AUTO) 0.3 % (0.0-2.0); EOSINOPHILS % (AUTO) 3.6 % (0.0-6.0); HEMATOCRIT 41 % (39-51); LYMPHOCYTES # (AUTO) 0.6 K/uL (0.8-4.8); LYMPHOCYTES % (AUTO) 10.9 % (20.0-44.0); MEAN CORPUSCULAR HGB CONC 32 g/dl (31.0-36.0); MEAN CORPUSCULAR VOLUME 79 fL (80-96); MONOCYTES # (AUTO) 0.7 K/uL (0.1-1.30); NEUTROPHILS # (AUTO) 3.7 K/uL (1.8-8.9); NEUTROPHILS % (AUTO) 72.2 % (43.0-81.0); PLATELET COUNT (AUTO) 164 K/uL (150-450); RED BLOOD CELL COUNT(AUTO) 5.16 MIL/uL (4.5-6.0); WHITE BLOOD COUNT (AUTO) 5.2 K/uL (4.3-11.0)
--- NOTE | 2021-03-30 17:47 | NUR ---
GIFTS OFFICER NOTE ROUNDS MADE , ALL NEEDS ATTENDED ,NOT IN DISTRESS ,WILL MONITOR
--- NOTE | 2021-03-30 17:59 | NUR ---
GROUP CARE WORKER NOTE FACE TO FACE ASSESSMENT DONE PATIENT STILL TRYING TO REMOVE ALL LINES AND TROTTER CATH , SERGIO POTTER NOTIFIED OK TO RENEW SOFT RESTRAIN ,WILL F\UN
--- NOTE | 2021-03-30 18:56 | NUR ---
OUTBOARD SYSTEM OPERATOR NOTE ALL NEEDS ATTENDED NOT IN DISTRESS, ABDOMEN STILL SLIGHTLY DISTENDED , WITH TROTTER CATH TO GRAVITY , WILL CONT TO MONITOR CLOSELY
--- NOTE | 2021-03-30 19:45 | NUR ---
RN OPENING NOTES RECD PT IN BED. ON 4L VIA NASAL CANNULA. TOLERATING WELL. NO SOB NO RESP DISTRESS NOTED. PT ON TELE MONITOR PRESENTS WITH ST 103 HEART RATE. PT HAS HX OF CVA, PT HAS EXPRESSIVE APHASIA. RESPONDS TO NAME. PT HAS TROTTER CATH DRAINING VIA GRAVITY. IV SITE FLUSHED ASEPTICALLY. SAFETY MEASURES IN PLACE. HOB ELEVATED. BED LOCKED IN LOWEST POSITION WITH BED ALARM ON. PT IS RESTRAINTED SOFT BILATERAL WRIST. SKIN CIRCULATION CHECKED. CALL LIGHT WITHIN REACH. WILL CONT TO MONITOR
[2021-03-30] MEDS: LATANOPROST EYE DROP 0.005% 2.5 ML BOTTLE EACHEYE SCH (22:06)
[2021-03-30] MEDS: CEFTRIAXONE 1 G in IV D5W 50 ML IV SCH (22:07)
--- NOTE | 2021-03-30 23:00 | NUR ---
RN NOTE REPORT GIVEN TO LOULOU AGEE FOR CONTINUATION OF CARE.
[2021-03-31] VITALS: BP 99/63
--- NOTE | 2021-03-31 | NUR ---
LOG RAFTER NOTES ON BED ON HIGH FOWLERS POSITION,BREATHING REGULAR,NOT IN ANY FORM OF DISTRESS.WITH RIGHT UPPER ARM PICC LINE FOR MEDS,S/P OPEN EX LAP ON 03/29,ABDOMINAL DRESSING INTACT AND DRY,ABDOMINAL BINDER IN PLACE,ON BILATERAL SOFT WRIST RESTRAINT,TENDENCY TO PULL OUT TUBINGS.NPO STATUS.
[2021-03-31 04:00] VITALS: BP 106/65
[2021-03-31 06:28] LABS: BASOPHILS % (AUTO) 0.3 % (0.0-2.0); EOSINOPHILS % (AUTO) 1.8 % (0.0-6.0); HEMATOCRIT 49 % (39-51); HEMOGLOBIN 15.4 g/dL (13.5-17.5); LYMPHOCYTES # (AUTO) 0.7 K/uL (0.8-4.8); MEAN CORPUSCULAR HGB CONC 32 g/dl (31.0-36.0); MEAN CORPUSCULAR VOLUME 81 fL (80-96); MONOCYTES # (AUTO) 0.9 K/uL (0.1-1.30); MONOCYTES % (AUTO) 12.2 % (2.0-12.0); NEUTROPHILS # (AUTO) 5.9 K/uL (1.8-8.9); NEUTROPHILS % (AUTO) 76.7 % (43.0-81.0); PLATELET COUNT (AUTO) 203 K/uL (150-450); RED BLOOD CELL COUNT(AUTO) 5.99 MIL/uL (4.5-6.0); WHITE BLOOD COUNT (AUTO) 7.7 K/uL (4.3-11.0)
--- NOTE | 2021-03-31 06:37 | NUR ---
MS RN NOTES AWAKE,ABLE TO TAKE OUT HIS BILATERAL SOFT WRIST RESTRAINTS AND GET UP TO USE THE RESTROOM FOR #2,NO FALL,NO INJURY,SNOW REMOVING SUPERVISOR AT BEDSIDE ASSISTING PATIENT TO THE RESTROOM.SALINE LOCK THIS TIME.BED ALARM TRIGGERED FOR PATIENT SAFETY.IN NO ACUTE DISTRESS.
[2021-03-31 07:13] LABS: ALBUMIN 3.4 g/dL (3.4-5.0); BILIRUBIN,TOTAL 3.3 mg/dL (0.2-1.0); CALCIUM, SERUM 8.9 mg/dL (8.5-10.1); CREATININE 0.9 mg/dL (0.6-1.3); MAGNESIUM 2.1 mg/dL (1.8-2.4); POTASSIUM 4.2 mmol/L (3.5-5.1); TOTAL PROTEIN, SERUM 7.5 g/dL (6.4-8.2)
--- NOTE | 2021-03-31 07:30 | NUR ---
GOVERNMENT PROGRAM MANAGER AM NOTES RECD PT IN BED. EXPRESSIVE APHASIC, RESPONDS TO NAME AND TOUCH.ON 4L VIA NASAL CANULA. TOLERATING WELL. NO SOB NO RESP DISTRESS NOTED. PT ON TELE MONITOR PRESENTS WITH SR 96 HEART RATE. NO SIGNS OF PAIN, NO GRIMACING. FIFI PICC LINE FLUSHES WELL, CDI DRESSING, SITE CLEAR. PT HAS TROTTER CATH DRAINING VIA GRAVITY. SAFETY MEASURES IN PLACE. NPO FOR NOW. SEE NURSING FLOWSHEET FOR SKIN ISSUES. HOB ELEVATED. BED LOCKED IN LOWEST POSITION WITH BED ALARM ON. SOFT BILATERAL WRIST IN PLACE. RELEASED, CHECKED PULSE AND CIRCULATION. THEN EVERY 2HOURS. CALL LIGHT WITHIN REACH. WILL CONT TO MONITOR
[2021-03-31 08:00] VITALS: BP 125/74
[2021-03-31] MEDS: PANTOPRAZOLE 40 MG VIAL IV SCH (09:25)
[2021-03-31] MEDS: ALBUMIN 25% 50 GM in PREMIX 1 EA IV SCH (09:26)
--- NOTE | 2021-03-31 09:30 | NUR ---
RN NOTES DUE MEDS GIVEN
[2021-03-31 12:00] VITALS: BP 115/64
--- NOTE | 2021-03-31 13:45 | NUR ---
RN NOTES PER SERGIO BALDWIN ELECTRICAL TECH, PT RESTRAINT ON RIGHT ARM MAYBE RELEASED. ALSO SPEECH THERAPIST AT BEDSIDE EARLIER FOR SWALLOW EVAL, PER HER PATIENT MAY HAVE SOFT DIET AND THIN LIQUIDS IF CLEARED BY SURGEON.
[2021-03-31 16:00] VITALS: BP 113/69
[2021-03-31] MEDS: MIDODRINE HCL (5MG) 5 MG TABLET PO SCH (17:09)
--- NOTE | 2021-03-31 19:48 | NUR ---
RN OPENING NOTES RECD PT IN BED. ON 4L VIA NASAL CANNULA. TOLERATING WELL. NO SOB NO RESP DISTRESS NOTED. PT ON TELE MONITOR PRESENTS WITH ST 101 HEART RATE. PT HAS HX OF CVA, PT HAS EXPRESSIVE APHASIA. RESPONDS TO NAME. PT HAS TROTTER CATH DRAINING VIA GRAVITY. IV SITE FLUSHED ASEPTICALLY. SAFETY MEASURES IN PLACE. HOB ELEVATED. BED LOCKED IN LOWEST POSITION WITH BED ALARM ON. PT IS RESTRAINTED SOFT BILATERAL WRIST. SKIN CIRCULATION CHECKED. CALL LIGHT WITHIN REACH. WILL CONT TO MONITOR
[2021-03-31 20:00] VITALS: BP 122/73
[2021-03-31] MEDS: LATANOPROST EYE DROP 0.005% 2.5 ML BOTTLE EACHEYE SCH (21:29)
[2021-04-01] VITALS: BP 120/80
[2021-04-01 04:00] VITALS: BP 113/68
[2021-04-01 06:06] LABS: BASOPHILS % (AUTO) 0.3 % (0.0-2.0); EOSINOPHILS % (AUTO) 3.2 % (0.0-6.0); HEMATOCRIT 42 % (39-51); HEMOGLOBIN 13.4 g/dL (13.5-17.5); LYMPHOCYTES # (AUTO) 0.7 K/uL (0.8-4.8); LYMPHOCYTES % (AUTO) 9.7 % (20.0-44.0); MEAN CORPUSCULAR HGB CONC 32 g/dl (31.0-36.0); MEAN CORPUSCULAR VOLUME 79 fL (80-96); MONOCYTES % (AUTO) 14.9 % (2.0-12.0); NEUTROPHILS % (AUTO) 71.9 % (43.0-81.0); PLATELET COUNT (AUTO) 185 K/uL (150-450); RED BLOOD CELL COUNT(AUTO) 5.26 MIL/uL (4.5-6.0); WHITE BLOOD COUNT (AUTO) 6.9 K/uL (4.3-11.0)
[2021-04-01 06:19] LABS: CALCIUM, SERUM 8.4 mg/dL (8.5-10.1); CREATININE 0.9 mg/dL (0.6-1.3); MAGNESIUM 1.9 mg/dL (1.8-2.4); POTASSIUM 3.9 mmol/L (3.5-5.1)
--- NOTE | 2021-04-01 07:17 | NUR ---
RN CLOSING NOTE NO SIGNIFICANT CHANGES IN PT CONDITION. STILL REMAINS WITH 4L OF O2 NO DISTRESS NOTED. NO SOB. STILL REMAINS AT NSR HR OF 95. ALL DUE MEDS GIVEN. SAFETY MEASURES IN PLACE. HOB ELEVATED. BED LOCKED IN LOWEST POSITION WITH BED ALARM ON. PT IS RESTRAINED SOFT BILATERAL WRIST. SKIN CIRCULATION CHECKED. CALL LIGHT WITHIN REACH. WILL ENDORSE TO DAY SHIFT RN FOR CONTINUATION OF CARE
--- NOTE | 2021-04-01 07:30 | NUR ---
RN OPENING NOTE APHASIC PT SEMIFOWLER'S A/Ox2 BREATHING RA SPO2 95%, NO SIGNS OF RESP DISTRESS OR SOB. PT TELEBOX SINUS TAHCY 100s. PT S/P 03/27 OPEN EXPLORATION VENTRAL HERNIA REPAIR, ABD BINDER IN PLACE, AMBER INTACT, NO SIGNS OF BLEEDING NOTED. PT HAS FIFI PICC SL, FLUSHED AND PATENT WITH NO SIGNS OF INFECTION/INFILTRATION. PT HAS BILAT SOFT WRIST RESTRAINTS PT WAS ATTEMPTING TO REMOVE TROTTER CATH, BILAT CMS INTACT. PT TROTTER CATH DRAINING JANINA/BLOODY URINE TO GRAVITY, AWARE. ALL P T SAFETY PRECAUTIONS IN PLACE, WILL CONT TO MONITOR
[2021-04-01 08:00] VITALS: BP 102/65
[2021-04-01] MEDS: MIDODRINE HCL (5MG) 5 MG TABLET PO SCH ×2 (08:43→13:14)
[2021-04-01] MEDS: PANTOPRAZOLE 40 MG VIAL IV SCH (08:43)
[2021-04-01] MEDS ORDERED: SPIRONOLACTONE 25 MG TABLET PO SCH (09:00)
--- NOTE | 2021-04-01 10:10 | NUR ---
RN NOTE TROTTER D/C'ed PER DR KILGORE, URINAL BEDSIDE. BILAT SOFT WRIST RESTRAINTS REMOVED
[2021-04-01 12:00] VITALS: BP 110/70
[2021-04-01 13:14] VITALS: BP 110/70
--- NOTE | 2021-04-01 14:22 | NUR ---
RN NOTE PT REPORT GIVEN TO LOULOU ANTHONY AT [facility]
--- NOTE | 2021-04-01 16:00 | NUR ---
RN NOTE PT LEFT IN STABLE CONDITION ON RA SPO2 92% NO SIGNS OF RESP DISTRESS OR SOB. ALL PT BELONGINGS WITH PT. FIFI PICC LINE REMOVED PRIOR TO DISCHARGE, NO BLEEDING NOTED. PT ABD AMBER INTACT AND OPEN TO AIR, NO SIGNS OF BLEEDING AT INCISION SITE ON ABD
== END 2021-04-01 16:00 | DRG 329 ==
LOC: ER 21:52 → MED 03-27 00:40 → TELE 03-27 01:53 → ICU 03-27 20:42 → TELE1 03-30 15:10
PROVIDERS: ADMIT Nurse Practitioner Family; ATTEND Internal Medicine
PROC: 0WQF0ZZ Repair Abdominal Wall, Open Approach (ICD-10-PCS; principal; 2021-03-27)
PROC: 0WJF4ZZ Inspection of Abdominal Wall, Percutaneous Endoscopic Approach (ICD-10-PCS; 2021-03-27)
PROC: 0DB80ZZ Excision of Small Intestine, Open Approach (ICD-10-PCS; 2021-03-27)
PROC: 05H533Z Insertion of Infusion Device into Right Subclavian Vein, Percutaneous Approach (ICD-10-PCS; 2021-03-28)
PROC: B546ZZA Ultrasonography of Right Subclavian Vein, Guidance (ICD-10-PCS; 2021-03-28)
PROC: 02HV33Z Insertion of Infusion Device into Superior Vena Cava, Percutaneous Approach (ICD-10-PCS; 2021-03-29)
PROC: B548ZZA Ultrasonography of Superior Vena Cava, Guidance (ICD-10-PCS; 2021-03-29)
DX: K43.6 Other and unspecified ventral hernia with obstruction, without gangrene (principal); N17.0 Acute kidney failure with tubular necrosis; K76.7 Hepatorenal syndrome; J96.00 Acute respiratory failure, unspecified whether with hypoxia or hypercapnia; E44.1 Mild protein-calorie malnutrition; E87.2 Acidosis; J98.11 Atelectasis; K56.7 Ileus, unspecified; J90 Pleural effusion, not elsewhere classified; I50.32 Chronic diastolic (congestive) heart failure; Z20.822 Contact with and (suspected) exposure to COVID-19; E03.9 Hypothyroidism, unspecified; E66.9 Obesity, unspecified; G40.909 Epilepsy, unspecified, not intractable, without status epilepticus; E86.0 Dehydration; E87.5 Hyperkalemia; I27.20 Pulmonary hypertension, unspecified; Z53.31 Laparoscopic surgical procedure converted to open procedure; Z68.30 Body mass index [BMI] 30.0-30.9, adult; I69.320 Aphasia following cerebral infarction; E88.09 Other disorders of plasma-protein metabolism, not elsewhere classified; K70.31 Alcoholic cirrhosis of liver with ascites; F25.9 Schizoaffective disorder, unspecified; Z95.828 Presence of other vascular implants and grafts
CPT/HCPCS: 31720; 36415; 36600; 70450-TC; 71045-TC; 80048-TC; 80061-TC; 80076-TC; 82140-TC; 82803-TC; 83605-TC; 83615-TC; 83690-TC; 83735-TC; 84100-TC; 84443-TC; 84484-TC; 85025-TC; 85730-TC; 87040-TC; 87070-TC; 87075-TC; 87081-TC; 87102-TC; 89051-TC; 92526; 92611-TC; 94002-TC; 94003-TC; 94760-TC; 97112-TC; 97116-TC; 97530-TC; A4216; C9113; C9803; G0378; J0690; J0696; J2060; J2250; J2270; J2405; J2704; J2765; J3010; J3490; J7030; J7050; J7060; P9047

== ENCOUNTER 2021-05-19 10:27 | Emergency (ER) | payer MEDICARE, OTHER ==
[~2021-05-19] VITALS: Ht 190.5 cm; Wt 109.8 kg
[~2021-05-19 10:27] MED LIST changes: -CITR15SO PO; +HYDR-4209 PO; +NA P133E RC; +POLY17PO4 PO; +SPIR25TA PO
[2021-05-19 11:11] LABS: HEMATOCRIT 41 % (39-51); PLATELET COUNT (AUTO) 169 K/uL (150-450); WHITE BLOOD COUNT (AUTO) 5.5 K/uL (4.3-11.0)
[2021-05-19 11:15] LABS: BASOPHILS # (AUTO) 0.1 K/uL (0.0-0.2); EOSINOPHILS % (AUTO) 1.6 % (0.0-6.0); HEMOGLOBIN 13.2 g/dL (13.5-17.5); LYMPHOCYTES # (AUTO) 0.6 K/uL (0.8-4.8); LYMPHOCYTES % (AUTO) 10.4 % (20.0-44.0); MEAN CORPUSCULAR HGB CONC 32 g/dl (31.0-36.0); MEAN CORPUSCULAR VOLUME 80 fL (80-96); MONOCYTES # (AUTO) 0.6 K/uL (0.1-1.30); MONOCYTES % (AUTO) 10.9 % (2.0-12.0); NEUTROPHILS # (AUTO) 4.2 K/uL (1.8-8.9); NEUTROPHILS % (AUTO) 76.1 % (43.0-81.0)
--- NOTE | 2021-05-19 11:15 | NUR ---
tete, from [facility] [place], abd distension, on room air, breathing evenly and unlabored. Connected to the monitor and pulse ox. kept comfortable, will continue to monitor accordingly.
[2021-05-19] MEDS ORDERED: MELA3TAB41 PO (11:20)
[2021-05-19] MEDS ORDERED: RIFA550T PO (11:20)
--- NOTE | 2021-05-19 13:57 | NUR ---
paracentesis completed. collected 12,000ml fluid. aware
--- NOTE | 2021-05-19 14:10 | NUR ---
CALLED [facility] FOR TRANSPORT TO [facility]. ETA. 10-15 MINUTES.
--- NOTE | 2021-05-19 14:11 | NUR ---
CALLED [facility] AND SPOKE WITH NURSE MEANS TO NOTIFY THAT THE PATIENT IS COMING BACK. REPORT GIVEN WELL.
--- NOTE | 2021-05-19 14:35 | NUR ---
[facility] 325 AT BEDSIDE FOR PT TRANSPORT BACK TO HIS FACILITY. PT IS IN STABLE CONDITION FOR TRANSPORT. PT LEFT ON GURNEY WITH 2 AMBULANCE STAFF. REPORT GIVEN
[2021-05-19 14:37] VITALS: BP 101/68
== END 2021-05-19 14:37 | disposition home or self-care (01) ==
LOC: ER 10:31
DX: K70.31 Alcoholic cirrhosis of liver with ascites (principal); E03.9 Hypothyroidism, unspecified; Z79.899 Other long term (current) drug therapy
CPT/HCPCS: 36415; 76942-TC; 85025-TC; 85730-TC